=== PATIENT | female | born 1990 | race Caucasian/White ===

== ENCOUNTER → 2017-10-22 | Outpatient (CLI) | payer OTHER ==
[2017-10-22 17:32] LABS: BASO % 0.4 % (0.0-1.0); EOS # 0.1 10^3/uL (0.0-0.50); EOS % 0.7 % (0.0-3.0); HEMATOCRIT 35.8 % (36.0-47.0); HEMOGLOBIN 11.6 g/dl (12.0-16.0); IMMATURE GRANULOCYTE % 0.4 % (0-3.0); LYMPH # 1.6 10^3/uL (1.5-6.5); MEAN CORPUSCULAR HGB CONC 32.4 g/dl (32.0-36.5); MEAN CORPUSCULAR VOLUME 89.5 fl (80.0-96.0); MONO # 0.6 10^3/uL (0.0-0.8); MONO % 5.4 % (0.0-5.0); NEUTROPHILS # 8.4 10^3/uL (1.8-7.7); NEUTROPHILS % 78.1 % (36.0-66.0); PLATELET COUNT, AUTOMATED 356 10^3/uL (150-450); RED CELL DISTRIBUTION WIDTH 14.1 % (11.5-14.5); WHITE BLOOD COUNT 10.7 10^3/uL (4.0-10.0)
[2017-10-23 00:27] LABS: CHLAMYDIA DNA AMPLIFICATION NEGATIVE (NEGATIVE); GC DNA AMPLIFICATION NEGATIVE (NEGATIVE)
[2017-10-23 10:11] LABS: RUBELLA IgG QUALITATIVE IMMUNE (IMMUNE)
[2017-10-23 10:15] LABS: HBsAg Prenatal NEGATIVE (NEGATIVE)
[2017-10-23 10:41] LABS: HIV 1&2 SCREEN CENTAUR NEGATIVE (NEGATIVE)
== END ==
LOC: M SMT 13:04
DX: Z34.81 Encounter for supervision of other normal pregnancy, first trimester (principal); Z3A.08 8 weeks gestation of pregnancy
CPT/HCPCS: 86762

== ENCOUNTER → 2017-12-05 | Outpatient (CLI) | payer OTHER | LOC: M RAD 15:56 | DX: Z36.9 Encounter for antenatal screening, unspecified (principal); Z3A.17 17 weeks gestation of pregnancy | CPT/HCPCS: 76811 ==

== ENCOUNTER → 2018-01-28 | Outpatient (CLI) | payer OTHER | LOC: M RAD 17:11 | DX: O32.1XX0 Maternal care for breech presentation, not applicable or unspecified (principal); Z3A.25 25 weeks gestation of pregnancy | CPT/HCPCS: 76816 ==

== ENCOUNTER → 2018-01-29 | Outpatient (REF) | payer OTHER ==
[2018-01-30 11:18] LABS: CHLAMYDIA DNA AMPLIFICATION NEGATIVE (NEGATIVE); GC DNA AMPLIFICATION NEGATIVE (NEGATIVE)
[2018-01-31 12:19] LABS: HEPATITIS B SURFACE ANTIGEN NEGATIVE (NEGATIVE)
[2018-01-31 12:45] LABS: HIV 1&2 SCREEN CENTAUR NEGATIVE (NEGATIVE)
== END ==
LOC: M LAB REF 14:14
DX: Z00.00 Encounter for general adult medical examination without abnormal findings (principal)
CPT/HCPCS: 87340

== ENCOUNTER → 2018-03-27 | Outpatient (CLI) | payer OTHER ==
[2018-03-27 17:46] LABS: GLUCOSE CHALLENGE TEST 1 HOUR 111 MG/DL (LESS THAN 140)
[2018-03-27 18:01] LABS: HEMATOCRIT 29.2 % (36.0-47.0); HEMOGLOBIN 9.4 g/dl (12.0-15.5); MEAN CORPUSCULAR HEMOGLOBIN 27.5 pg (27.0-33.0); MEAN CORPUSCULAR HGB CONC 32.2 g/dl (32.0-36.5); MEAN CORPUSCULAR VOLUME 85.4 fl (80.0-96.0); PLATELET COUNT, AUTOMATED 398 10^3/uL (150-450); RED BLOOD COUNT 3.42 10^6/uL (4.00-5.40); RED CELL DISTRIBUTION WIDTH 14.5 % (11.5-14.5); WHITE BLOOD COUNT 18.1 10^3/uL (4.0-10.0)
== END ==
LOC: M SMT 13:03
DX: Z36.89 Encounter for other specified antenatal screening (principal); Z3A.00 Weeks of gestation of pregnancy not specified
CPT/HCPCS: 82950

== ENCOUNTER → 2018-04-14 | Outpatient (REF) | payer OTHER | LOC: M LAB REF 17:13 | DX: Z34.83 Encounter for supervision of other normal pregnancy, third trimester (principal); Z3A.00 Weeks of gestation of pregnancy not specified | CPT/HCPCS: 87081 ==

== ENCOUNTER 2018-05-09 01:39 | Inpatient (IN) | payer OTHER ==
[2018-05-09] MEDS: LACTATED RINGER'S 1000 ML IV (02:24)
[2018-05-09] MEDS: LR 1,000 ML IV (02:24)
[2018-05-09 02:48] LABS: HEMATOCRIT 33.5 % (36.0-47.0); HEMOGLOBIN 10.5 g/dl (12.0-15.5); MEAN CORPUSCULAR HEMOGLOBIN 25.5 pg (27.0-33.0); MEAN CORPUSCULAR HGB CONC 31.3 g/dl (32.0-36.5); MEAN CORPUSCULAR VOLUME 81.3 fl (80.0-96.0); PLATELET COUNT, AUTOMATED 435 10^3/uL (150-450); RED BLOOD COUNT 4.12 10^6/uL (4.00-5.40); RED CELL DISTRIBUTION WIDTH 15.3 % (11.5-14.5); WHITE BLOOD COUNT 16.9 10^3/uL (4.0-10.0)
[2018-05-09] MEDS: ONDANSETRON 4MG/2ML VIAL (J2405) IV (03:18)
[2018-05-09] MEDS ORDERED: FENTANYL 2MCG/ML ROPIVACAINE 0.2% IN 0.9% NACL 200ML IVBAG As Ordered (03:24)
[2018-05-09] MEDS ORDERED: REFRIGERATOR IV KEYS XX (03:30)
[2018-05-09] MEDS ORDERED: ONDANSETRON 4MG/2ML VIAL (J2405) IV (03:30)
[2018-05-09] MEDS: FENTANYL/ROPIVACAINE/NACL BAG 200 ML EPIDURAL (03:30)
[2018-05-09] MEDS ORDERED: ePHEDrine SULFATE 25 MG/5 ML(5MG/ML) SYRINGE IV (03:30)
[2018-05-09] MEDS ORDERED: NALOXONE INJ 0.4 MG/1 ML VIAL (J2310) IV (03:30)
[2018-05-09] MEDS ORDERED: EPIDURAL COMMENT XX (03:30)
[2018-05-09] MEDS ORDERED: diphenhydrAMINE INJ 50MG/ML VIAL (J1200) IV (03:30)
[2018-05-09] MEDS ORDERED: LACTATED RINGER'S 1000 ML IV (03:30)
[2018-05-09] MEDS ORDERED: EPIDURAL/PCA KEYS XX (03:30)
[2018-05-09] MEDS ORDERED: OXYTOCIN 30 UNITS IN 0.9% NaCl 500ML IV BAG (J2590) As Ordered (07:50)
[2018-05-09] MEDS ORDERED: METHYLERGONOVINE MALEATE 0.2 MG TAB PO (08:00)
[2018-05-09] MEDS ORDERED: RHOGAM 300 MCG (1500 IU) INJ (J2790) IM (08:00)
[2018-05-09] MEDS ORDERED: MEASLES,MUMPS,RUBELLA VACCINE INJ (MMR-II) (90707) SC (08:00)
[2018-05-09] MEDS ORDERED: DIBUCAINE 1% OINTMENT 30GM TOP (08:00)
[2018-05-09] MEDS: OXYTOCIN DRIP 30 UNITS in APPROPRIATE DILUENT 1 EA IV (08:00)
[2018-05-09] MEDS: IBUPROFEN 800 MG TAB PO (16:24)
[2018-05-09] MEDS: ACETAMINOPHEN 500 MG TAB PO ×2 (17:02→23:15)
[2018-05-09] MEDS: PRENATAL VITAMINS CHEWABLE TABLET PO (19:10)
[2018-05-09] MEDS: DOCUSATE SODIUM 100 MG CAP PO (23:15)
[2018-05-10] MEDS: PRENATAL VITAMINS CHEWABLE TABLET PO (08:46)
[2018-05-10] MEDS: IBUPROFEN 800 MG TAB PO (08:46)
[2018-05-10] MEDS: INFLUENZA QUADRIVALENT PF VACCINE 0.5ML SYRINGE (90686) IM (12:51)
== END 2018-05-10 15:20 | disposition home or self-care (01) | DRG 560 ==
LOC: M LDO 01:39 → M LDI 02:23 → M OBS 14:14
PROVIDERS: Specialist
PROC: 10E0XZZ Delivery of Products of Conception, External Approach (ICD-10-PCS; principal; 2018-05-09)
DX: O99.334 Smoking (tobacco) complicating childbirth (principal); F17.210 Nicotine dependence, cigarettes, uncomplicated; Z3A.39 39 weeks gestation of pregnancy; O32.6XX0 Maternal care for compound presentation, not applicable or unspecified; Z37.0 Single live birth

== ENCOUNTER → 2020-03-01 | Outpatient (REF) | payer OTHER ==
[~2020-03-01] MED LIST: FLINCHW9 PO; IBUP-1114 PO; IBUP600T26 PO; IBUP80TA PO; MAPA500T2 PO; PRENTAB9 PO; VITAPRTA PO
[2020-03-01 21:10] LABS: CHLAMYDIA DNA AMPLIFICATION NEGATIVE (NEGATIVE); GC DNA AMPLIFICATION NEGATIVE (NEGATIVE)
== END ==
LOC: M SFHCWAGY 16:34
PROVIDERS: ATTEND Specialist
DX: Z20.2 Contact with and (suspected) exposure to infections with a predominantly sexual mode of transmission (principal)

== ENCOUNTER 2020-05-04 05:48 | Emergency (ER) | payer OTHER ==
[~2020-05-04] VITALS: Ht 160 cm; Wt 81.8 kg
[2020-05-04] MEDS ORDERED: CYCL5TAB PO (06:02)
[2020-05-04 06:38] LABS: BASO # 0.1 10^3/uL (0.0-0.2); BASO % 0.5 % (0.0-1.0); EOS # 0.5 10^3/uL (0.0-0.5); EOS % 4.7 % (0.0-3.0); HEMATOCRIT 39.9 % (36.0-47.0); HEMOGLOBIN 12.5 g/dl (12.0-15.5); LYMPH # 1.6 10^3/uL (1.5-5.0); LYMPH % 15.6 % (24.0-44.0); MEAN CORPUSCULAR HEMOGLOBIN 28.3 pg (27.0-33.0); MEAN CORPUSCULAR HGB CONC 31.3 g/dl (32.0-36.5); MEAN CORPUSCULAR VOLUME 90.5 fl (80.0-96.0); MONO # 0.7 10^3/uL (0.0-0.8); MONO % 6.6 % (0.0-5.0); NEUTROPHILS # 7.5 10^3/uL (1.5-8.5); NEUTROPHILS % 72.3 % (36.0-66.0); PLATELET COUNT, AUTOMATED 502 10^3/uL (150-450); RED BLOOD COUNT 4.41 10^6/uL (4.00-5.40); WHITE BLOOD COUNT 10.4 10^3/uL (4.0-10.0)
[2020-05-04 07:00] LABS: ALBUMIN 3.5 GM/DL (3.2-5.2); ALT/SGPT 25 U/L (12-78); BILIRUBIN,DIRECT < 0.1 MG/DL (0.0-0.2); BILIRUBIN,TOTAL 0.2 MG/DL (0.2-1.0); BLOOD UREA NITROGEN 10 MG/DL (7-18); CALCIUM LEVEL 9.3 MG/DL (8.5-10.1); CARBON DIOXIDE LEVEL 25 MEQ/L (21-32); CHLORIDE LEVEL 109 MEQ/L (98-107); CREATININE FOR GFR 0.69 MG/DL (0.55-1.30); GLOMERULAR FILTRATION RATE > 60.0 (>60); GLUCOSE, FASTING 91 MG/DL (70-100); LIPASE 49 U/L (73-393); SODIUM LEVEL 140 MEQ/L (136-145); TOTAL PROTEIN 7.4 GM/DL (6.4-8.2)
[2020-05-04] MEDS ORDERED: NS 1,000 ML IV ONE (08:00)
[2020-05-04 08:06] LABS: HCG, SERUM QUALITATIVE NEGATIVE (NEGATIVE)
[2020-05-04 08:19] LABS: CK-MB VALUE MASS < 1.0 NG/ML (<3.6); CPK CREATINE PHOSPHOKINASE 100 U/L (26-192); TROPONIN I < 0.02 NG/ML (< 0.10)
--- NOTE | 2020-05-04 08:40 | REPVR ---
PROCEDURE INFORMATION: Exam: XR Chest, 2 Views Exam date and time: 05/04/2020 8:27 AM Age: 29 years old Clinical indication: Chest pain; Type not specified TECHNIQUE: Imaging protocol: XR of the chest Views: 2 views. COMPARISON: No relevant prior studies available. FINDINGS: Lungs: Unremarkable. No consolidation. Pleural space: Unremarkable. No pleural effusion. No pneumothorax. Heart/Mediastinum: Unremarkable. No cardiomegaly. Bones/joints: Unremarkable. IMPRESSION: No acute abnormalities are identified. Electronically signed by: Brant Rios On 05/04/2020 08:40:35 AM
[2020-05-04] MEDS ORDERED: KETOROLAC 30 MG/ML 1ML VIAL IV ONE (09:00)
--- NOTE | 2020-05-04 09:24 | REPVR ---
PROCEDURE INFORMATION: Exam: US Abdomen, Limited; Right Upper Quadrant Exam date and time: 05/04/2020 9:04 AM Age: 29 years old Clinical indication: Abdominal pain; Additional info: Ruq pain into back TECHNIQUE: Imaging protocol: US abdomen. Real time ultrasound with image documentation. Limited exam focused on the right upper quadrant. COMPARISON: No relevant prior studies available. FINDINGS: Liver: Unremarkable. No mass. Gallbladder: Distended gallbladder containing multiple gallstones and sludge. No significant gallbladder wall thickening or pericholecystic fluid. Negative sonographic Lew's sign. Common bile duct: Bile ducts are normal in caliber. CBD 4 mm. Pancreas: Visualized pancreas is unremarkable. Right kidney: Right kidney measures 11.6 cm in length. No evidence of hydronephrosis. Echogenic renal pyramids is nonspecific and can be seen in the setting of medullary nephrocalcinosis. No discrete calculi. Intraperitoneal space: No evidence of free fluid. IMPRESSION: 1. Distended gallbladder with cholelithiasis and gallbladder sludge. No sonographic evidence of cholecystitis. 2. No biliary duct dilatation. 3. Echogenic renal pyramids noted within the right kidney which is nonspecific and can be seen in the setting of medullary nephrocalcinosis. Electronically signed by: Brant Rios On 05/04/2020 09:24:23 AM
[2020-05-04 09:39] LABS: CK-MB VALUE MASS 1.3 NG/ML (<3.6); CPK CREATINE PHOSPHOKINASE 100 U/L (26-192); TROPONIN I < 0.02 NG/ML (< 0.10)
[2020-05-04 09:54] VITALS: BP 127/65
--- NOTE | 2020-05-11 09:43 | ECGEPIP ---
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
[2020-05-24] MEDS ORDERED: OMEP-221 (10:30)
== END 2020-05-04 10:15 | disposition home or self-care (01) ==
LOC: M ED 05:48
DX: K80.70 Calculus of gallbladder and bile duct without cholecystitis without obstruction (principal); F17.210 Nicotine dependence, cigarettes, uncomplicated; Z88.0 Allergy status to penicillin
CPT/HCPCS: 36415; 71046; 76705; 80048; 80076; 82550; 82553; 83690; 84703; 85025; 93005; 96374; 99284; J1885

== ENCOUNTER 2020-06-18 19:02 | Observation (INO) | payer OTHER ==
[~2020-06-18] VITALS: Ht 160 cm; Wt 87.3 kg
[~2020-06-18 19:02] MED LIST changes: +CYCL5TAB PO; +OMEP-221
[2020-06-18] MEDS ORDERED: KETOROLAC 30 MG/ML 1ML VIAL IV ONE (19:45)
[2020-06-18] MEDS ORDERED: NS 1,000 ML IV ONE (19:45)
[2020-06-18] MEDS ORDERED: ONDANSETRON 4MG/2ML VIAL IV ONE (19:45)
[2020-06-18 19:57] LABS: BASO # 0.1 10^3/uL (0.0-0.2); BASO % 0.3 % (0.0-1.0); EOS % 0.2 % (0.0-3.0); HEMOGLOBIN 12.8 g/dl (12.0-15.5); LYMPH # 1.2 10^3/uL (1.5-5.0); LYMPH % 6.3 % (24.0-44.0); MEAN CORPUSCULAR HEMOGLOBIN 28.5 pg (27.0-33.0); MEAN CORPUSCULAR VOLUME 89.1 fl (80.0-96.0); MONO # 1.9 10^3/uL (0.0-0.8); MONO % 10.4 % (0.0-5.0); NEUTROPHILS # 15.4 10^3/uL (1.5-8.5); NEUTROPHILS % 82.4 % (36.0-66.0); PLATELET COUNT, AUTOMATED 442 10^3/uL (150-450); RED BLOOD COUNT 4.49 10^6/uL (4.00-5.40); WHITE BLOOD COUNT 18.6 10^3/uL (4.0-10.0)
[2020-06-18] MEDS ORDERED: ISOVUE-370 76% 100ML VIAL As Ordered ONE (20:02)
[2020-06-18 20:20] LABS: ALBUMIN 3.7 GM/DL (3.2-5.2); BILIRUBIN,DIRECT 0.3 MG/DL (0.0-0.2); BILIRUBIN,TOTAL 0.6 MG/DL (0.2-1.0); TOTAL PROTEIN 7.8 GM/DL (6.4-8.2)
--- NOTE | 2020-06-18 20:23 | REPVR ---
PROCEDURE INFORMATION: Exam: CT Abdomen And Pelvis With Contrast Exam date and time: 06/18/2020 8:07 PM Age: 29 years old Clinical indication: Abdominal pain; Flank; Lower; Additional info: Lower abd/flank pain TECHNIQUE: Imaging protocol: Computed tomography of the abdomen and pelvis with intravenous contrast. Radiation optimization: All CT scans at this facility use at least one of these dose optimization techniques: automated exposure control; mA and/or kV adjustment per patient size (includes targeted exams where dose is matched to clinical indication); or iterative reconstruction. Contrast material: ISOVUE 370; Contrast volume: 100 ml; Contrast route: INTRAVENOUS (IV); COMPARISON: GALLBLADDER US 05/04/2020 8:49 AM FINDINGS: Liver: There is a diffuse decrease in hepatic parenchymal density, consistent with steatosis. Gallbladder and bile ducts: There are gallstones present. No evidence of cholecystitis demonstrated. Pancreas: Normal. No ductal dilation. Spleen: Normal. No splenomegaly. Adrenals: Normal. No mass. Kidneys and ureters: 7 mm nonobstructive calculus right kidney. Patchy enhancement in the mid and lower pole of the left kidney suggestive of pyelonephritis/lobar nephronia in the appropriate clinical setting. Stomach and bowel: Unremarkable. No obstruction. No mucosal thickening. Appendix: The appendix is within normal limits. There is no appendiceal enlargement, periappendiceal inflammatory changes or abscess. Intraperitoneal space: Unremarkable. No free air. No significant fluid collection. Vasculature: Unremarkable. No abdominal aortic aneurysm. Lymph nodes: Unremarkable. No enlarged lymph nodes. Urinary bladder: Unremarkable as visualized. Reproductive: Unremarkable as visualized. Bones/joints: Unremarkable. No acute fracture. Soft tissues: Unremarkable. IMPRESSION: 1. There is a diffuse decrease in hepatic parenchymal density, consistent with steatosis. 2. There are gallstones present. No evidence of cholecystitis demonstrated. 3. 7 mm nonobstructive calculus right kidney. Patchy enhancement in the mid and lower pole of the left kidney suggestive of pyelonephritis/lobar nephronia in the appropriate clinical setting. 4. The appendix is within normal limits. There is no appendiceal enlargement, periappendiceal inflammatory changes or abscess. Electronically signed by: Stef White On 06/18/2020 20:22:34 PM
[2020-06-18] MEDS ORDERED: CIPROFLOXACIN 400 MG in IV 1 EA IV ONE (22:00)
--- NOTE | 2020-06-18 22:36 | HPEPDOC ---
General Date of Admission Date of Service: Jun 18, 2020 Attending Physician: MAGGI LYNCH DO Chief Complaint The patient is a 29-year-old female admitted with a reason for visit of Flank Pain. History of Present Illness Pt is a 29 y/o female who presents to ER with cc of flank pain. Pt states that she's had a dull aching feeling in her flank region where her kidneys are for the past week and the pain is progressively getting worse and more frequent. Current pain is 6/10. She took some tylenol to suppress the pain but the pain comes right back after tylenol wear off. She's had some chilld, rigors, and states she feels "hot and cold" but denies any fever. She's also had some episodes of nausea today but denies vomiting. She also is starting to have whole body aches today. She states that she used to get frequent UTI but has not had one in a few years. Denies CP, sob, dysuria. PMHX: gallstones Past Family Hx: Noncontributory Past social hx: denies alcohol or illicit drugs ALL: Penicillin- hives MEDS: NONE IMAGING: CT abd and pelvis w/ ctx IMPRESSION: 1. There is a diffuse decrease in hepatic parenchymal density, consistent with steatosis. 2. There are gallstones present. No evidence of cholecystitis demonstrated. 3. 7 mm nonobstructive calculus right kidney. Patchy enhancement in the mid and lower pole of the left kidney suggestive of pyelonephritis/lobar nephronia in the appropriate clinical setting. 4. The appendix is within normal limits. There is no appendiceal enlargement, periappendiceal inflammatory changes or abscess Home Medications No Active Prescriptions or Reported Meds Allergies Coded Allergies: Penicillins (Verified Allergy, Unknown, 05/24/20) A-FIB/CHADSVASC A-FIB History Current/History of A-Fib/PAF?: No Current PO Anticoag Therapy: No Review of Systems Constitutional: Reports: Chills, Malaise, Night Sweats, Weakness, Fatigue; Denies: Fever, Weight Loss Eyes: Denies: Pain, Conjunctivae inflammation ENT: Reports: Head Aches; Denies: Ear Pain, Dysphagia, Sinus Congestion Skin: Denies: Rash, Jaundice Pulmonary: Denies: Dyspnea, Cough, Pleuritic Chest Pain Cardiovascular: Denies: Chest Pain, Palpitations, Orthopnea Gastrointestinal: Reports: Nausea; Denies: Vomiting, Abdominal Pain, Diarrhea, Constipation, Melena Genitourinary: Denies: Dysuria, Frequency, Incontinence Hematologic: Denies: Bruising, Bleeding Excessively Endocrine: Denies: Polydipsia, Polyphagia, Polyuria Musculoskeletal: Reports: Back Pain (bilateral flank region); Denies: Neck Pain Neurological: Denies: Weakness, Numbness, Incoordination, Change in speech Physical Examination General Exam: Positive: Alert, Cooperative, No Acute Distress Eye Exam: Positive: Sclera icteric ENT Exam: Positive: Atraumatic, Tongue Midline Neck Exam: Positive: Supple; Negative: JVD, thyromegaly, Lymphadenopathy Chest Exam: Positive: Clear to auscultation; Negative: Rales, Wheezing, Diminished Heart Exam: Positive: Rate Normal, Regular Rhythm, Normal S1, Normal S2; Negative: Gallops, Murmurs, Rubs Abdomen Exam: Positive: Normal bowel sounds, Soft, Other (+ CVA tenderness bilaterally); Negative: Tenderness, Hepatospenomegaly, Mass Extremity Exam: Negative: Clubbing, Cyanosis, Edema Skin Exam: Negative: Nl turgor and temperature Vital Signs Vital Signs Date Time Temp Pulse Resp B/P (MAP) Pulse Ox O2 Delivery O2 Flow Rate FiO2 06/18/20 21:23 98.2 91 18 97/51 (66) 98 Room Air Laboratory Data Labs 24H Laboratory Tests 2 06/18/20 19:43: POC Glucose (Misc Panel) 94, POC Sodium (Misc Panel) 136, POC Potassium (Misc Panel) 3.8, POC Chloride (Misc Panel) 103, POC Total CO2 (Misc Panel) 21.0L, POC Blood Urea Nitrogen (Misc Panel 8, POC Ionized Calcium (Misc Panel) 5.0, POC Creatinine (Misc Panel) 0.8, POC Hematocrit (Misc Panel) 43.0 06/18/20 19:44: Immature Granulocyte % (Auto) 0.4, Neutrophils (%) (Auto) 82.4H, Lymphocytes (%) (Auto) 6.3L, Monocytes (%) (Auto) 10.4H, Eosinophils (%) (Auto) 0.2, Basophils (%) (Auto) 0.3, Neutrophils # (Auto) 15.4H, Lymphocytes # (Auto) 1.2L, Monocytes # (Auto) 1.9H, Eosinophils # (Auto) 0.0, Basophils # (Auto) 0.1, Nucleated Red Blood Cells % (auto) 0.0, Urine Color MC, Urine Appearance CLOUDYH, Urine pH 6.0, Urine Specific [place] 1.020, Urine Protein 2+H, Urine Glucose (UA) NEGATIVE, Urine Ketones TRACEH, Urine Blood 1+H, Urine Nitrite POSITIVEH, Urine Bilirubin NEGATIVE, Urine Urobilinogen 4.0H, Urine Leukocyte Esterase 3+H, Urine WBC (Auto) TNTCH, Urine RBC (Auto) 16H, Urine Hyaline Casts (Auto) 0, Urine Bacteria (Auto) NEGATIVE, Urine Squamous Epithelial Cells 10, Urine Mucus (Auto) SMALL, Urine Sperm (Auto) , Total Bilirubin 0.6, Direct Bilirubin 0.3H, Aspartate Amino Transf (AST/SGOT) 39H, Alanine Aminotransferase (ALT/SGPT) 71, Alkaline Phosphatase 115, Total Protein 7.8, Albumin 3.7, Albumin/Globulin Ratio 0.9L, Lipase 38L 06/18/20 19:45: POC Beta HCG, Quantitative < 5.0 06/18/20 20:45: Lactic Acid Level 0.8 CBC/BMP Laboratory Tests 06/18/20 19:44 Microbiology Microbiology 06/18/20 Blood Culture, Received Pending 06/18/20 Urine Culture, Received Pending Assessment/Plan Pt is a 29 y/o female who presents to ER with cc of flank pain. Pt states that she's had a dull aching feeling in her flank region where her kidneys are for the past week and the pain is progressively getting worse and more frequent. CT abd/pelvis shows evidence of pyelonephritis and pt will be admitted for sepsis 2/2 to pyelo for further mgmt Plan / VTE VTE Prophylaxis Ordered?: Yes Plan Plan #Sepsis 2/2 to pyelonephritis - CT abd/pelvis show nonobstructive stones and evidence of pyelo in L kidney - IVF 125cc/h - strict IOs - Received 1 dose of Cipro in ER - afebrile+ CVA tenderness - blood and urine cultures pending - continue cipro IV - Tylenol for pain PRN - zofran for nausea #gallstones w/o complications - no biliary colic or pain on exam - no evidence of cholecystitis #nonobstructive calculus in R kidney - 7mm in size; non complicated - tylenol for pain control DVT ppx: teds/scds GI ppx: none fluids : ns 125cc/h Diet: regular Code: full GME ATTESTATION GME ATTESTATION My faculty preceptor for this patient encounter was physically present during the encounter and was fully available. All aspects of the patient interview, examination, medical decision making process, and medical care plan development were reviewed and approved by the faculty preceptor. The faculty preceptor is aware and concurs with the plan as stated in the body of this note and will attest to such by his/her cosignature. Jennifer Andres DO Jun 18, 2020 22:36
[2020-06-19 01:11] VITALS: BP 120/86
[2020-06-19] MEDS: NS 1,000 ML IV SCH ×3 (01:24→17:34)
[2020-06-19] MEDS: ACETAMINOPHEN TAB 650MG DOSE (2X325MG) PO PRN ×4 (01:25→19:49)
[2020-06-19] MEDS: ONDANSETRON 4MG/2ML VIAL IV PRN (01:33)
[2020-06-19] MEDS ORDERED: IBUPROFEN 400 MG TAB PO ONE (04:00)
[2020-06-19 06:00] VITALS: BP 106/65
[2020-06-19 06:44] LABS: BLOOD UREA NITROGEN 8 MG/DL (7-18); CALCIUM LEVEL 8.6 MG/DL (8.5-10.1); CARBON DIOXIDE LEVEL 23 MEQ/L (21-32); CHLORIDE LEVEL 108 MEQ/L (98-107); CREATININE FOR GFR 0.68 MG/DL (0.55-1.30); GLOMERULAR FILTRATION RATE > 60.0 (>60); GLUCOSE, FASTING 94 MG/DL (70-100); POTASSIUM SERUM 3.7 MEQ/L (3.5-5.1); SODIUM LEVEL 137 MEQ/L (136-145)
[2020-06-19 06:49] LABS: HEMATOCRIT 36.7 % (36.0-47.0); HEMOGLOBIN 11.3 g/dl (12.0-15.5); MEAN CORPUSCULAR HEMOGLOBIN 28.2 pg (27.0-33.0); MEAN CORPUSCULAR HGB CONC 30.8 g/dl (32.0-36.5); MEAN CORPUSCULAR VOLUME 91.5 fl (80.0-96.0); PLATELET COUNT, AUTOMATED 355 10^3/uL (150-450); RED BLOOD COUNT 4.01 10^6/uL (4.00-5.40); WHITE BLOOD COUNT 15.8 10^3/uL (4.0-10.0)
[2020-06-19] MEDS ORDERED: MEROPENEM INJ 1 GM in IV 1 EA IV SCH (07:15)
[2020-06-19] MEDS ORDERED: VANCOMYCIN HCL 1,310 MG in IV FLUID PLACE HOLDER 1 EA IV SCH (07:15)
--- NOTE | 2020-06-19 07:31 | IPNPDOC ---
Date Seen The patient was seen on 06/19/20. Progress Note SUBJECTIVE: patient was seen and examined at bedside. was admitted with sepsis 2/2 pyelonephritis. States R flank pain, fevers, chills. Improving mildly on abx. Denies chest pain, sob, palpitations, n/v/d. OBJECTIVE PHYSICAL EXAMINATION: VITAL SIGNS: please see below General: comfortable in bed HEENT: PERRLA, EOMI, sclerae clear Neck: supple, normal ROM, no JVD Respiratory: lungs CTAB, no wheeze, no rales, no crackles CVS: RRR, normal S1, S2, no murmurs Abdo: soft, no masses, no hepatosplenomegaly, BS+, no rebound tenderness Extremities: no edema, pulses 2+ Back: R CVA tenderness on percussion. MSK: no joint deformities, normal ROM Neuro: no focal neuro deficits, moving all 4 extremities, CN2-12 intact. Strength 5/5 in all 4 extremities. No nystagmus. Psych: calm, cooperative, AAO x 3 LABORATORY DATA, IMAGING STUDIES, MICROBIOLOGY: Please see below. DVT prophylaxis ordered?: Y, lovenox, TEDs, SCDs ASSESSMENT AND PLAN: 29 yo F admitted for sepsis secondary to pyelonephritis in the L kidney. Meets sepsis criteria. C/w IV abx. Awaiting final urine and blood cultures. PROBLEMS: #Sepsis: 2/2 pyelonephritis. S/p cipro in ED. Low suspicion for MDR infection. Improving on ciprofloxacin. C/w cipro 400 mg q12h IV. Blood culture positive for gram-negative rods. Urine cx. urine hCG negative. #hepatic steatososis: recommend outpatient f/u, dietary modification. #R non-obstructing renal calculus: 7 mm, see on CT. #BMI 34.1: complicating care. dietary counseling provided. DISPOSITION: DC home once medically stable. VS, I&O, 24H, [place] Vital Signs/I&O Vital Signs Date Time Temp Pulse Resp B/P (MAP) Pulse Ox O2 Delivery O2 Flow Rate FiO2 06/19/20 06:00 98.8 84 20 106/65 (79) 96 Room Air I&O- Last 24 Hours up to 6 AM 06/19/20 06:00 Intake Total 1793 ml Output Total 0 ml Balance 1793 ml Laboratory Data 24H LABS Laboratory Tests 2 10/17/20 19:43: POC Glucose (Misc Panel) 94, POC Sodium (Misc Panel) 136, POC Potassium (Misc Panel) 3.8, POC Chloride (Misc Panel) 103, POC Total CO2 (Misc Panel) 21.0L, POC Blood Urea Nitrogen (Misc Panel 8, POC Ionized Calcium (Misc Panel) 5.0, POC Creatinine (Misc Panel) 0.8, POC Hematocrit (Misc Panel) 43.0 06/18/20 19:44: Immature Granulocyte % (Auto) 0.4, Neutrophils (%) (Auto) 82.4H, Lymphocytes (%) (Auto) 6.3L, Monocytes (%) (Auto) 10.4H, Eosinophils (%) (Auto) 0.2, Basophils (%) (Auto) 0.3, Neutrophils # (Auto) 15.4H, Lymphocytes # (Auto) 1.2L, Monocytes # (Auto) 1.9H, Eosinophils # (Auto) 0.0, Basophils # (Auto) 0.1, Nucleated Red Blood Cells % (auto) 0.0, Urine Color MC, Urine Appearance CLOUDYH, Urine pH 6.0, Urine Specific [place] 1.020, Urine Protein 2+H, Urine Glucose (UA) NEGATIVE, Urine Ketones TRACEH, Urine Blood 1+H, Urine Nitrite POSITIVEH, Urine Bilirubin NEGATIVE, Urine Urobilinogen 4.0H, Urine Leukocyte Esterase 3+H, Urine WBC (Auto) TNTCH, Urine RBC (Auto) 16H, Urine Hyaline Casts (Auto) 0, Urine Bacteria (Auto) NEGATIVE, Urine Squamous Epithelial Cells 10, Urine Mucus (Auto) SMALL, Urine Sperm (Auto) , Total Bilirubin 0.6, Direct Bilirubin 0.3H, Aspartate Amino Transf (AST/SGOT) 39H, Alanine Aminotransferase (ALT/SGPT) 71, Alkaline Phosphatase 115, Total Protein 7.8, Albumin 3.7, Albumin/Globulin Ratio 0.9L, Lipase 38L 06/18/20 19:45: POC Beta HCG, Quantitative < 5.0 06/18/20 20:45: Lactic Acid Level 0.8 06/19/20 05:30: Nucleated Red Blood Cells % (auto) 0.0, Anion Gap 6L, Glomerular Filtration Rate > 60.0, Calcium Level 8.6 CBC/BMP Laboratory Tests 06/18/20 19:44 06/19/20 05:30 Microbiology Microbiology 06/19/20 Blood Culture, Received Pending 06/18/20 Blood Culture, Received Pending 06/18/20 Urine Culture, Received Pending DAVID ROD MD Jun 19, 2020 07:31
[2020-06-19] MEDS: CIPROFLOXACIN 400 MG in IV 1 EA IV SCH ×2 (08:53→21:13)
[2020-06-19] MEDS: ENOXAPARIN 40MG/0.4ML SYRINGE (J1650 PER 10MG) SC SCH (08:55)
[2020-06-19] MEDS ORDERED: CIPROFLOXACIN 200 MG in IV 1 EA IV SCH (10:00)
[2020-06-19 14:00] VITALS: BP 106/63
[2020-06-19 22:00] VITALS: BP 136/77
[2020-06-20] MEDS: ACETAMINOPHEN TAB 650MG DOSE (2X325MG) PO PRN ×4 (01:31→21:41)
[2020-06-20] MEDS: NS 1,000 ML IV SCH ×4 (01:31→21:39)
[2020-06-20] MEDS: ONDANSETRON 4MG/2ML VIAL IV PRN ×2 (01:37→18:28)
[2020-06-20 06:00] VITALS: BP 118/63
[2020-06-20] MEDS: ENOXAPARIN 40MG/0.4ML SYRINGE (J1650 PER 10MG) SC SCH (08:50)
[2020-06-20] MEDS ORDERED: CEFEPIME HCL 2 GM in D5W MINI-BAG PLUS 50 ML IV SCH (10:00)
--- NOTE | 2020-06-20 10:24 | IPNPDOC ---
Date Seen The patient was seen on 06/20/20. Progress Note SUBJECTIVE: Patient seen and examined at bedside this morning. Reports persistent mild chills. Ongoing CVA tenderness bilateral, worse on left. Reports mild lower abdominal pain and mild dysuria. Denies chest pressures breath, nausea, vomiting, diarrhea. Having normal bowel movements. Bradycardia by mouth. OBJECTIVE PHYSICAL EXAMINATION: VITAL SIGNS: please see below General: comfortable in bed HEENT: PERRLA, EOMI, sclerae clear Neck: supple, normal ROM, no JVD Respiratory: lungs CTAB, no wheeze, no rales, no crackles CVS: RRR, normal S1, S2, no murmurs Abdo: soft, no masses, no hepatosplenomegaly, BS+, no rebound tenderness Extremities: no edema, pulses 2+ Back: bilateral CVA tenderness on percussion, L > R. MSK: no joint deformities, normal ROM Neuro: no focal neuro deficits, moving all 4 extremities, CN2-12 intact. Strength 5/5 in all 4 extremities. No nystagmus. Psych: calm, cooperative, AAO x 3 LABORATORY DATA, IMAGING STUDIES, MICROBIOLOGY: Please see below. DVT prophylaxis ordered?: Y, SCD, MURIEL, Lovenox. ASSESSMENT AND PLAN: 29 yo F admitted for sepsis secondary to pyelonephritis in the L kidney. Meets sepsis criteria. C/w IV abx. Urine culture growing pansensitive Escherichia coli. Blood cultures preliminary positive for gram- negative rods. Currently on ciprofloxacin. Repeat cultures ordered on 06/20. PROBLEMS: #Sepsis: 2/2 pyelonephritis. Low suspicion for MDR infection. C/w cipro 400 mg q12h IV. Blood culture positive for gram-negative rods. Urine culture positive for Escherichia coli, pansensitive except for ampicillin. Repeat blood cultures 06/20. Urine hCG negative. #hepatic steatososis: recommend outpatient f/u, dietary modification. #R non-obstructing renal calculus: 7 mm, see on CT. #BMI 34.1: complicating care. dietary counseling provided. DISPOSITION: DC home once medically stable. VS, I&O, 24H, [place] Vital Signs/I&O Vital Signs Date Time Temp Pulse Resp B/P (MAP) Pulse Ox O2 Delivery O2 Flow Rate FiO2 06/20/20 06:00 99.3 83 12 118/63 (81) 97 Room Air I&O- Last 24 Hours up to 6 AM 06/20/20 06:00 Intake Total 5119 ml Output Total 1950 ml Balance 3169 ml Laboratory Data Microbiology Microbiology 06/19/20 Blood Culture - Preliminary, Resulted No growth after 24 hours . All specim... 06/18/20 Blood Culture - Preliminary, Resulted 06/18/20 Urine Culture - Final, Complete Escherichia Coli DAVID ROD MD Jun 20, 2020 10:24
[2020-06-20] MEDS: CIPROFLOXACIN 400 MG in IV 1 EA IV SCH ×2 (11:20→21:39)
[2020-06-20 12:08] LABS: BASO % 0.4 % (0.0-1.0); EOS # 0.1 10^3/uL (0.0-0.5); EOS % 1.1 % (0.0-3.0); HEMATOCRIT 32.7 % (36.0-47.0); HEMOGLOBIN 9.9 g/dl (12.0-15.5); LYMPH # 1.2 10^3/uL (1.5-5.0); LYMPH % 12.2 % (24.0-44.0); MEAN CORPUSCULAR HGB CONC 30.3 g/dl (32.0-36.5); MEAN CORPUSCULAR VOLUME 92.4 fl (80.0-96.0); MONO # 1.1 10^3/uL (0.0-0.8); MONO % 11.1 % (0.0-5.0); NEUTROPHILS # 7.4 10^3/uL (1.5-8.5); NEUTROPHILS % 74.8 % (36.0-66.0); PLATELET COUNT, AUTOMATED 301 10^3/uL (150-450); RED BLOOD COUNT 3.54 10^6/uL (4.00-5.40); WHITE BLOOD COUNT 9.9 10^3/uL (4.0-10.0)
[2020-06-20 12:43] LABS: ALBUMIN 2.8 GM/DL (3.2-5.2); ALT/SGPT 87 U/L (12-78); BILIRUBIN,TOTAL 0.3 MG/DL (0.2-1.0); BLOOD UREA NITROGEN 6 MG/DL (7-18); CALCIUM LEVEL 9.1 MG/DL (8.5-10.1); CARBON DIOXIDE LEVEL 26 MEQ/L (21-32); CHLORIDE LEVEL 108 MEQ/L (98-107); CREATININE FOR GFR 0.59 MG/DL (0.55-1.30); GLOMERULAR FILTRATION RATE > 60.0 (>60); GLUCOSE, FASTING 96 MG/DL (70-100); POTASSIUM SERUM 3.8 MEQ/L (3.5-5.1); SODIUM LEVEL 137 MEQ/L (136-145); TOTAL PROTEIN 6.3 GM/DL (6.4-8.2)
[2020-06-20 13:40] VITALS: BP 116/62
[2020-06-20 22:00] VITALS: BP 110/62
[2020-06-21 02:00] VITALS: BP 102/60
[2020-06-21] MEDS: ACETAMINOPHEN TAB 650MG DOSE (2X325MG) PO PRN (05:25)
[2020-06-21 06:00] VITALS: BP 107/65
[2020-06-21 06:39] LABS: BASO % 0.5 % (0.0-1.0); EOS # 0.2 10^3/uL (0.0-0.5); EOS % 2.6 % (0.0-3.0); HEMATOCRIT 33.1 % (36.0-47.0); HEMOGLOBIN 10.1 g/dl (12.0-15.5); LYMPH # 1.9 10^3/uL (1.5-5.0); LYMPH % 21.6 % (24.0-44.0); MEAN CORPUSCULAR HEMOGLOBIN 28.2 pg (27.0-33.0); MEAN CORPUSCULAR HGB CONC 30.5 g/dl (32.0-36.5); MEAN CORPUSCULAR VOLUME 92.5 fl (80.0-96.0); MONO # 0.8 10^3/uL (0.0-0.8); MONO % 9.3 % (0.0-5.0); NEUTROPHILS # 5.8 10^3/uL (1.5-8.5); NEUTROPHILS % 65.5 % (36.0-66.0); PLATELET COUNT, AUTOMATED 333 10^3/uL (150-450); RED BLOOD COUNT 3.58 10^6/uL (4.00-5.40); WHITE BLOOD COUNT 8.9 10^3/uL (4.0-10.0)
[2020-06-21 07:01] LABS: ALBUMIN 2.7 GM/DL (3.2-5.2); ALT/SGPT 182 U/L (12-78); BILIRUBIN,TOTAL 0.3 MG/DL (0.2-1.0); BLOOD UREA NITROGEN 5 MG/DL (7-18); CALCIUM LEVEL 8.8 MG/DL (8.5-10.1); CARBON DIOXIDE LEVEL 25 MEQ/L (21-32); CHLORIDE LEVEL 109 MEQ/L (98-107); CREATININE FOR GFR 0.56 MG/DL (0.55-1.30); GLOMERULAR FILTRATION RATE > 60.0 (>60); GLUCOSE, FASTING 76 MG/DL (70-100); SODIUM LEVEL 138 MEQ/L (136-145); TOTAL PROTEIN 6.2 GM/DL (6.4-8.2)
[2020-06-21] MEDS: CIPROFLOXACIN 400 MG in IV 1 EA IV SCH (08:25)
[2020-06-21] MEDS: NS 1,000 ML IV SCH ×2 (08:25→13:57)
[2020-06-21] MEDS: ENOXAPARIN 40MG/0.4ML SYRINGE (J1650 PER 10MG) SC SCH (08:25)
[2020-06-21 09:18] LABS: APPEARANCE, URINE HAZY (CLEAR); BACTERIA, URINE AUTO 1+ (NEGATIVE); BILIRUBIN, URINE AUTO NEGATIVE (NEGATIVE); BLOOD, URINE BLOOD NEGATIVE (NEGATIVE); COLOR, URINE YELLOW (YELLOW); GLUCOSE, URINE (UA) AUTO NEGATIVE (NEGATIVE); KETONE, URINE AUTO NEGATIVE (NEGATIVE); LEUKOCYTE ESTERASE, URINE AUTO TRACE (NEGATIVE); MUCUS, URINE SMALL (NEGATIVE); NITRITE, URINE AUTO NEGATIVE (NEGATIVE); PROTEIN, URINE AUTO NEGATIVE (NEGATIVE); RBC, URINE AUTO 2 /HPF (0-3); SQUAMOUS EPITHELIAL CELL UR AU 7 /HPF (0-6); UROBILINOGEN, URINE AUTO 0.2 mg/dL (0.0-2.0); WBC, URINE AUTO 9 /HPF (0-3)
[2020-06-21 14:00] VITALS: BP 108/66
--- NOTE | 2020-06-21 14:03 | DS.PDOC ---
Discharge Summary General Date of Admission Jun 18, 2020 at 19:03 Date of Discharge 06/21/2020 Discharge Summary PROCEDURES PERFORMED DURING STAY: [None]. ADMITTING DIAGNOSES: Flank pain DISCHARGE DIAGNOSES: Left pyelonephritis COMPLICATIONS/CHIEF COMPLAINT: Sepsis. HISTORY OF PRESENT ILLNESS: HPI from admitting H&P: HOSPITAL COURSE: 29 yo F admitted for sepsis secondary to pyelonephritis in the L kidney. Meets sepsis criteria. Treated with IV ciprofloxacin. Urine culture growing pansensitive Escherichia coli. Blood cultures preliminary positive for gram-negative rods 06/18/2020. Repeat blood cultures 06/19/2020 negative after 48 hours. Clinically doing much better and will be discharged home on by mouth ciprofloxacin and to follow-up with her primary care doctor within 2-5 days of discharge. # pyelonephritis. cipro 400 mg q12h IV transition to by mouth upon discharge. Urine culture positive for Escherichia coli, pansensitive except for ampicillin. Blood cultures preliminary positive for gram-negative rods 06/18/2020 repeat blood cultures 06/19 negative after 48 hours. Urine hCG negative. #hepatic steatososis: recommend outpatient f/u, dietary modification. # R non-obstructing renal calculus: 7 mm, see on CT. DISCHARGE MEDICATIONS: Please see below. ALLERGIES: Please see below. PHYSICAL EXAMINATION ON DISCHARGE: VITAL SIGNS: Please see below. Constitutional: Awake and alert, in no apparent distress ENT: Sclera are clear. Mucosa is moist. Respiratory: Lungs CTA bilaterally. No respiratory distress. No use of accessory muscles. Cardiovascular: RRR S1 and S2 are normal, no murmur Gastrointestinal: Abdomen is soft, non distended, non tender, BS present. Musculoskeletal: No edema. No joint deformities. RUE 5/5, LUE 5/5, BLE 5/5. No CVA tenderness bilaterally. Neurologic: No focal neurological deficit. Mental Status: A&O x3, normal affect Skin: Warm, dry LABORATORY DATA: Please see below. IMAGING: CT abdomen/pelvis: Impression 06/18/2020 1. There is a diffuse decrease in hepatic parenchymal density, consistent with steatosis. 2. There are gallstones present. No evidence of cholecystitis demonstrated. 3. 7 mm nonobstructive calculus right kidney. Patchy enhancement in the mid and lower pole of the left kidney suggestive of pyelonephritis/lobar nephronia in the appropriate clinical setting. 4. The appendix is within normal limits. There is no appendiceal enlargement, periappendiceal inflammatory changes or abscess. PROGNOSIS: Good ACTIVITY: [As tolerated]. DIET: Regular diet DISPOSITION: Home DISCHARGE INSTRUCTIONS: Please follow up with your primary care physician within 1 week from discharge. If you do not have one, please follow up with us to schedule an appointment. Please keep all of your follow up appointments. Please call central to book your appointments with hospital specialists. Please take all your medications as prescribed. Please call/come to Clinic or go to the Emergency Department if - Temp >101, intractable Nausea/Vomiting, Diarrhea, Mouth sores, Headaches, Altered mental status, Seizures, sudden onset of swelling, bleeding, shortness of breath or chest pain. ITEMS TO FOLLOWUP ON ON OUTPATIENT: Take antibiotics as prescribed Follow-up with PCP 2-5 days after discharge DISCHARGE CONDITION: [Stable]. TIME SPENT ON DISCHARGE: Greater than 40 minutes. Vital Signs/I&Os Vital Signs Date Time Temp Pulse Resp B/P (MAP) Pulse Ox O2 Delivery O2 Flow Rate FiO2 06/21/20 06:00 98.8 80 17 107/65 (79) 95 Room Air I&O- Last 24 Hours up to 6 AM 06/21/20 06:00 Intake Total 6115 ml Output Total 2925 ml Balance 3190 ml Laboratory Data Labs 24H Laboratory Tests 2 06/21/20 05:31: Immature Granulocyte % (Auto) 0.5, Neutrophils (%) (Auto) 65.5, Lymphocytes (%) (Auto) 21.6L, Monocytes (%) (Auto) 9.3H, Eosinophils (%) (Auto) 2.6, Basophils ( %) (Auto) 0.5, Neutrophils # (Auto) 5.8, Lymphocytes # (Auto) 1.9, Monocytes # (Auto) 0.8, Eosinophils # (Auto) 0.2, Basophils # (Auto) 0.0, Nucleated Red Blood Cells % (auto) 0.0, Anion Gap 4L, Glomerular Filtration Rate > 60.0, Calcium Level 8.8, Magnesium Level 2.0, Total Bilirubin 0.3, Aspartate Amino Transf (AST/SGOT) 105H, Alanine Aminotransferase (ALT/SGPT) 182H, Alkaline Phosphatase 140H, Total Protein 6.2L, Albumin 2.7L, Albumin/Globulin Ratio 0.8L 06/21/20 08:42: Urine Color YELLOW, Urine Appearance HAZY, Urine pH 6.0, Urine Specific [place] 1.010, Urine Protein NEGATIVE, Urine Glucose (Auto)(UA) NEGATIVE, Urine Ketones (Auto) NEGATIVE, Urine Blood NEGATIVE, Urine Nitrite NEGATIVE, Urine Bilirubin NEGATIVE, Urine Urobilinogen 0.2, Urine Leukocyte Esterase (Auto) TRACEH, Urine WBC (Auto) 9H, Urine RBC (Auto) 2, Urine Hyaline Casts (Auto) 0, Urine Bacteria (Auto) 1+H, Urine Squamous Epithelial Cells 7, Urine Mucus (Auto) SMALL, Urine Sperm (Auto) CBC/BMP Laboratory Tests 06/21/20 05:31 Microbiology Microbiology 06/19/20 Blood Culture - Preliminary, Resulted No Growth after 48 hours. All Specime... 06/18/20 Blood Culture - Final, Complete Escherichia Coli 06/18/20 Urine Culture - Final, Complete Escherichia Coli Discharge Medications No Active Prescriptions or Reported Meds Allergies Coded Allergies: Penicillins (Verified Allergy, Unknown, 05/24/20) GEREMIAS ARMIJO MD Jun 21, 2020 13:57
[2020-06-21] MEDS ORDERED: CIPR5SUS PO (14:05)
[2020-06-21] MEDS ORDERED: ACET1TAB55 PO (14:05)
== END 2020-06-21 15:35 | disposition home or self-care (01) ==
LOC: M ED 19:02 → M ED INP 19:03 → ENRESERV 06-19 00:20 → M MSPAV 06-19 01:11
PROVIDERS: ADMIT Internal Medicine; ATTEND Family Medicine
DX: N10 Acute pyelonephritis (principal); N39.0 Urinary tract infection, site not specified; B96.20 Unspecified Escherichia coli [E. coli] as the cause of diseases classified elsewhere; K80.20 Calculus of gallbladder without cholecystitis without obstruction; N20.0 Calculus of kidney; Z88.0 Allergy status to penicillin
CPT/HCPCS: 36415; 74177; 80047; 80048; 80053; 80076; 81001; 83605; 83690; 83735; 84702; 85025; 85027; 87040; 87077; 87088; 87186; 96361; 96365; 96366; 96375; 96376; 99284; J0744; J1885; J2405; Q9967

== ENCOUNTER → 2020-07-06 | Outpatient (CLI) | payer OTHER ==
[~2020-07-06] MED LIST changes: +ACET1TAB55 PO; +CIPR5SUS PO
== END ==
LOC: M LABSMTC 12:50
PROVIDERS: ATTEND Anesthesiology
DX: Z01.818 Encounter for other preprocedural examination (principal)
CPT/HCPCS: C9803; U0002

== ENCOUNTER → 2020-07-07 | Day surgery (SDC) | payer OTHER ==
[~2020-07-07] VITALS: Ht 160 cm; Wt 86.2 kg
[~2020-07-07] MED LIST changes: +LIDOCAINE 2% 100MG/5ML SDV (FOR ANES.) As Ordered ONE; +NS 1,000 ML IV ONE; +fentaNYL 100 MCG/2 ML INJECTION (J3010) As Ordered ONE; +propofoL 200 MG/20 ML VIAL As Ordered ONE
--- NOTE | 2020-07-07 11:22 | ROOR ---
Patient Name: Andria Dorsey Procedure Date: 07/07/2020 11:07 AM Date of : 1990 Age: 29 Room: [facility] Gender: Female Note Status: Finalized Procedure: Upper GI endoscopy Indications: Suspected esophageal reflux Providers: Bautista Drake Jr, MD Referring MD: Magnolia MEDELLIN DO Requesting Provider: Medicines: Propofol per Anesthesia Complications: No immediate complications. Procedure: Pre-Anesthesia Assessment: - Prior to the procedure, a History and Physical was performed, and patient medications and allergies were reviewed. The patient is competent. The risks and benefits of the procedure and the sedation options and risks were discussed with the patient. All questions were answered and informed consent was obtained. Patient identification and proposed procedure were verified by the physician and the nurse in the pre-procedure area and in the procedure room. Mental Status Examination: alert and oriented. Airway Examination: normal oropharyngeal airway and neck mobility. Respiratory Examination: clear to auscultation. CV Examination: normal. ASA Grade Assessment: II - A patient with mild systemic disease. After reviewing the risks and benefits, the patient was deemed in satisfactory condition to undergo the procedure. The anesthesia plan was to use moderate sedation / analgesia (conscious sedation). Immediately prior to administration of medications, the patient was re-assessed for adequacy to receive sedatives. The heart rate, respiratory rate, oxygen saturations, blood pressure, adequacy of pulmonary ventilation, and response to care were monitored throughout the procedure. The physical status of the patient was re-assessed after the procedure. The Endoscope was introduced through the mouth, and advanced to the second part of duodenum. The upper GI endoscopy was accomplished without difficulty. The patient tolerated the procedure well. Findings: The upper third of the esophagus, middle third of the esophagus and lower third of the esophagus were normal. LA Grade B (one or more mucosal breaks greater than 5 mm, not extending between the tops of two mucosal folds) esophagitis with no bleeding was found at the gastroesophageal junction. Biopsies were taken with a cold forceps for histology. The cardia, gastric fundus, gastric body, incisura, gastric antrum, prepyloric region of the stomach and pylorus were normal. Moderate inflammation characterized by congestion (edema), erythema and friability was found on the lesser curvature of the stomach. The duodenal bulb, first portion of the duodenum and second portion of the duodenum were normal. A small non-bleeding diverticulum was found in the gastric antrum. Impression: - Normal upper third of esophagus, middle third of esophagus and lower third of esophagus. - LA Grade B reflux esophagitis. Biopsied. - Normal cardia, gastric fundus, gastric body, incisura, antrum, prepyloric region of the stomach and pylorus. - Gastritis. - Normal duodenal bulb, first portion of the duodenum and second portion of the duodenum. - Gastric diverticulum. Recommendation: - Discharge patient to home (ambulatory). - Return to my office in 2 weeks. Bautista Drake MD Bautista Drake Jr, MD 07/07/2020 11:22:02 AM Electronically signed by Bautista Drake Jr, MD Number of Addenda: 0 Note Initiated On: 07/07/2020 11:07 AM Estimated Blood Loss: Estimated blood loss: none.
[2020-07-07 11:44] VITALS: BP 124/59
== END | disposition home or self-care (01) ==
LOC: M OPP 09:26
PROVIDERS: ATTEND Surgery
DX: K29.70 Gastritis, unspecified, without bleeding (principal); K21.00 Gastro-esophageal reflux disease with esophagitis, without bleeding; K31.4 Gastric diverticulum; F17.210 Nicotine dependence, cigarettes, uncomplicated; Z88.0 Allergy status to penicillin; Z87.448 Personal history of other diseases of urinary system
CPT/HCPCS: 43239; 88305; J3010

== ENCOUNTER → 2020-08-15 | Outpatient (REF) | payer OTHER ==
[~2020-08-15] MED LIST changes: -LIDOCAINE 2% 100MG/5ML SDV (FOR ANES.) As Ordered ONE; -NS 1,000 ML IV ONE; -fentaNYL 100 MCG/2 ML INJECTION (J3010) As Ordered ONE; -propofoL 200 MG/20 ML VIAL As Ordered ONE
== END ==
LOC: M LAB REF 18:24
PROVIDERS: ATTEND Physician Assistant
DX: Z32.00 Encounter for pregnancy test, result unknown (principal)

== ENCOUNTER 2020-08-20 18:31 | Emergency (ER) | payer OTHER ==
[~2020-08-20] VITALS: Ht 160 cm; Wt 87.4 kg
[2020-08-20] MEDS ORDERED: OMEP-221 (18:37)
[2020-08-20] MEDS ORDERED: SUCR1TAB56 (18:37)
[2020-08-20 21:14] LABS: CHLAMYDIA DNA AMPLIFICATION NEGATIVE (NEGATIVE); GC DNA AMPLIFICATION POSITIVE (NEGATIVE)
[2020-08-20] MEDS ORDERED: metroNIDAZOLE (FLAGYL) 500MG TABLET PO ONE (21:45)
[2020-08-20] MEDS ORDERED: cefTRIAXone SOD 250MG VIAL (J0696 PER 250MG) IM ONE (21:45)
[2020-08-20] MEDS ORDERED: LIDOCAINE 1% SDV 5ML VIAL DILUENT ONE (21:45)
[2020-08-20] MEDS ORDERED: AZITHROMYCIN 250MG TABLET PO ONE (21:45)
[2020-08-20] MEDS ORDERED: FLAG500T PO (21:58)
[2020-08-20] MEDS ORDERED: KEFL500C17 PO (21:58)
[2020-08-20 22:11] VITALS: BP 126/80
[2020-08-22 19:56] LABS: HEPATITIS B SURFACE ANTIBODY POSITIVE (POSITIVE); HEPATITIS B SURFACE ANTIGEN NEGATIVE (NEGATIVE); HEPATITIS C VIRUS ABY INDEX 0.1 INDEX (<0.8); HIV 1&2 SCREEN CENTAUR NEGATIVE (NEGATIVE)
== END 2020-08-20 22:15 | disposition home or self-care (01) ==
LOC: M ED 18:31
DX: O23.591 Infection of other part of genital tract in pregnancy, first trimester (principal); O98.211 Gonorrhea complicating pregnancy, first trimester; R82.71 Bacteriuria; Z79.899 Other long term (current) drug therapy; Z88.0 Allergy status to penicillin; O99.331 Smoking (tobacco) complicating pregnancy, first trimester; F17.210 Nicotine dependence, cigarettes, uncomplicated; Z3A.00 Weeks of gestation of pregnancy not specified
CPT/HCPCS: 81001; 84702; 86706; 86780; 86803; 87088; 87186; 87210; 87340; 87389; 87661; 96372; 99284; J0696

== ENCOUNTER → 2020-09-15 | Outpatient (CLI) | payer OTHER ==
[~2020-09-15] MED LIST changes: +FLAG500T PO; +KEFL500C17 PO; +SUCR1TAB56
--- NOTE | 2020-09-20 09:49 | REP ---
INDICATION: DATING AND VIABILITY COMPARISON: None. TECHNIQUE: Transabdominal 1st trimester obstetrical ultrasound with color Doppler evaluation. FINDINGS: Single live early intrauterine is appreciated. Gestational sac with yolk sac and pole identified. [place]-rump length of 2.4 cm corresponds to 9 weeks 0 days gestational age with estimated date of delivery 04/20/2021. heart rate equals 171 beats per minute. Right corpus luteal cyst noted. IMPRESSION: Single live early intrauterine at 9 weeks 0 days gestational age. Complete anatomical assessment should be performed and 19-20 weeks. <Electronically signed by Brant Shipman > 09/20/20 0920
== END ==
LOC: M RAD 13:33
PROVIDERS: ATTEND Physician Assistant
DX: Z36.9 Encounter for antenatal screening, unspecified (principal); Z3A.09 9 weeks gestation of pregnancy

== ENCOUNTER 2020-10-20 16:36 | Emergency (ER) | payer OTHER ==
[~2020-10-20] VITALS: Ht 160 cm; Wt 84.5 kg
--- OUTSIDE RECORDS SUMMARY | 2020-10-20 16:44 | CCD | Continuity of Care Document ---
Author Author Andria MEEKS D.O. Organization Unknown Address [address] [place] [address] Phone [phone] Care Team Providers Care Chest Pain Coordinator Name Role Phone Magnolia Meeks D.O. AUTM [phone] Problems Description No Information Available Social History Type Date Description Comments Sex Unknown Tobacco Use Start: Unknown Heavy tobacco smoker (more than 10 cigarettes/day) Smoking Status Reviewed: 03/18/19 Heavy tobacco smoker (more than 10 cigarettes/day) ETOH Use Denies alcohol use Tobacco Use Start: Unknown Heavy tobacco smoker (more than 10 cigarettes/day) Recreational Drug Use Denies Drug Use Exercise Type/Frequency Does not exercise Sun Exposure Does not use sunscreen Seat Belt/Car Seat Always uses seat belt Allergies, Adverse Reactions, Alerts Active Allergies Reaction Severity Comments Date Penicillin 02/09/2019 Medications Active Medications SIG Qnty Indications Ordering Provide r Date Tizanidine HCL 2mg Tablets one tablet by mouth every 8 hours as needed for pain 90tabs M54.5 Magnolia Carroll, DNicolle 09/08/2019 Paragard Intrauterine Copper Contracepti ve T380a T380a IUD Unknown Acetaminophen 325mg Tablets Unknown Acetaminophen 325mg Tablets Take Two Tablets By Mouth Every 4 Hours as Needed For Pain Or Fever Unknown Immunizations Description No Information Available Vital Signs Date Vital Result Comment 09/08/2019 10:16am BP Systolic 120 mmHg BP Diastolic 88 mmHg Height 62.7 inches 5'2.70" Weight 179.38 lb BMI (Body Mass Index) 32.1 kg/m2 Heart Rate 73 /min Respiratory Rate 16 /min Body Temperature 98.6 F O2 % BldC Oximetry 98 % [place] Body Weight 110 lb 03/18/2019 3:05pm BP Systolic 112 mmHg BP Diastolic 66 mmHg Height 62.7 inches 5'2.70" Weight 170.00 lb BMI (Body Mass Index) 30.4 kg/m2 Heart Rate 87 /min Respiratory Rate 18 /min Body Temperature 99.4 F O2 % BldC Oximetry 99 % [place] Body Weight 110 lb Results Test Acquired Date Facility Test Result H/L Range Note Wet [place] Trichomonas 08/20/2020 [facility] (Registration) [address] [place] [address] [phone] Wet Prep WET PREP RESULT Normal 1 Chlamydia, GC & Trich Amp 08/20/2020 [facility] Outpatient Testing (Registration) [address] [place], [place] [address] [phone] Chlamydia Dna Amplification NEGATIVE Normal Nega tive 2 GC Dna Amplification POSITIVE High Negative Trichomonas vaginalis (Amp) NOT DETECTED Normal Negative 3 Laboratory test finding 08/20/2020 [facility] Outpatient T esting (Registration) [address] [place] [address] [phone] HCG, Serum Quantitative 2995 MIU/ML Normal 4 Ua W/ Reflex To Culture 08/20/2020 [facility] Outpatient T esting (Registration) [address] [place] [address] [phone] Appearance, Urine RFX CLOUDY High Clear Color, Urine RFX YELLOW Normal Yellow PH,Urine RFX 5.0 units Normal 5.0-9.0 Specific [place] Ur Auto RFX 1.025 Normal 1.002-1.035 Protein, Urine Auto RFX NEGATIVE mg/dL Normal Negative Glucose, Urine (Ua) Auto RFX NEGATIVE mg/dL Normal Negative Ketone, Urine Auto RFX NEGATIVE mg/dL Normal Negative Urobilinogen, Urine Auto RFX 2.0 mg/dL High 0.0-2.0 Bilirubin, Urine Auto RFX NEGATIVE Normal Negative Nitrite, Urine Auto RFX NEGATIVE Normal Negative Leukocyte Esterase Ur Auto RFX 1+ High Negative Blood, Urine Blood RFX NEGATIVE Normal Negative WBC, Urine Auto RFX 16 /HPF High 0-3 RBC, Urine Auto RFX 2 /HPF Normal 0-3 Bacteria, Urine Auto RFX 1+ High Negative Squam Epithelial Cell Ur Aurfx 13 /HPF Normal 0-6 Mucus, Urine RFX SMALL Normal Negative Hyaline Cast, Urine Auto RFX 0 /LPF Normal 0-1 Reflex Urine Culture 08/20/2020 [facility] Outpatient Test ing (Registration) [address] [place] [address] [phone] Reflex Urine Culture FULL REPORT IN L <SEE NOTE> Norm al 5 CBC With Differential 05/04/2020 [facility] Out[facility] (Registration) [address] [place] [address] [phone] White Blood Count 10.4 10 High 4.0-10.0 Red Blood Count 4.41 10 Normal 4.00-5.40 Hemoglobin 12.5 g/dL Normal 12.0-15.5 Hematocrit 39.9 % Normal 36.0-47.0 Mean Corpuscular Volume 90.5 fl Normal 80.0-96.0 Mean Corpuscular Hemoglobin 28.3 pg Normal 27.0-33.0 Mean Corpuscular HGB Conc 31.3 g/dL Low 32.0-36.5 Red Cell Distribution Width 14.6 % High 11.5-14.5 Platelet Count, Automated 502 10 High 150-450 Neutrophils % 72.3 % High 36.0-66.0 Lymph % 15.6 % Low 24.0-44.0 [place] % 6.6 % High 0.0-5.0 Eos % 4.7 % High 0.0-3.0 Baso % 0.5 % Normal 0.0-1.0 Immature Granulocyte % 0.3 % Normal 0-3.0 Nucleated Red Blood Cell % 0.0 % Normal 0-0 Neutrophils # 7.5 10 Normal 1.5-8.5 Lymph # 1.6 10 Normal 1.5-5.0 [place] # 0.7 10 Normal 0.0-0.8 Eos # 0.5 10 Normal 0.0-0.5 Baso # 0.1 10 Normal 0.0-0.2 Liver Profile 05/04/2020 [facility] Outpatient Testi ng (Registration) [address] [place] [address] [phone] Ast/Sgot 9 U/L Normal 7-37 Alt/SGPT 25 U/L Normal 12-78 Alkaline Phosphatase 82 U/L Normal 45-117 Bilirubin,Total 0.2 mg/dL Normal 0.2-1.0 Bilirubin,Direct < 0.1 mg/dL Normal 0.0-0.2 Total Protein 7.4 GM/DL Normal 6.4-8.2 Albumin 3.5 GM/DL Normal 3.2-5.2 Albumin/Globulin Ratio 0.9 Low 1.2-2.2 Basic Metabolic Profile 05/04/2020 [facility] Outpatient T esting (Registration) [address] [place] [address] [phone] Glucose, Fasting 91 mg/dL Normal 70-100 Blood Urea Nitrogen 10 mg/dL Normal 7-18 Creatinine For GFR 0.69 mg/dL Normal 0.55-1.30 Glomerular Filtration Rate > 60.0 Normal >60 6 Sodium Level 140 mEq/L Normal 136-145 Potassium Serum 4.0 mEq/L Normal 3.5-5.1 Chloride Level 109 mEq/L High 98-107 Carbon Dioxide Level 25 mEq/L Normal 21-32 Anion Gap 6 mEq/L Low 8-16 Calcium Level 9.3 mg/dL Normal 8.5-10.1 Laboratory test finding 05/04/2020 [facility] Outpatient T esting (Registration) [address] [place] [address] [phone] Lipase 49 U/L Low 73-393 Cardiac Marker Panel 05/04/2020 [facility] Outpatient Test ing (Registration) [address] [place] [address] [phone] CPK Creatine Phosphokinase 100 U/L Normal 26-19 2 CK-MB Value Mass < 1.0 NG/ML Normal <3.6 MB/CK Relative Index 1.00 Normal < Or =4 7 Troponin I < 0.02 NG/ML Normal < 0.10 8 Laboratory test finding 05/04/2020 [facility] Outpatient T esting (Registration) [address] [place] [address] [phone] HCG Serum Qualitative NEGATIVE Normal Negative 1 MANY SHORT RODS PRESENT MODERATE CLUE CELLS PRESENT FEW WBC 2 A negative test result does not exclude the possibility of infection because test results may be affected by improper specimen collection, technical error, specimen mix-up, concurrent antibiotic therapy, or the number of organisms in the specimen which may be below the sensitivity of the test. 3 A negative test result does not exclude the possibility of infection because test results may be affected by improper specimen collection, technical error, sample mix-up, or because the number of organisms in the sample is below the limit of detection of the test. 4 GESTATIONAL AGE APPROXIMATE HCG RANGE (MIU/ML) - 0.2-1 WEEK 5-50 1-2 WEEKS 50-500 2-3 WEEKS 100-5,000 3-4 WEEKS 500-10,000 4-5 WEEKS 1,000-50,000 5-6 WEEKS 10,000-100,000 6-8 WEEKS 15,000-200,000 2-3 MONTHS 10,000-100,00 0 NON FEMALES LESS THAN 3.0 Patient samples may contain human heterophilic antibodies that could react with immunoassays to give falsely elevated or depressed results. This assay has been designed to minimize interference from heterophilic antibodies. Elevated hCG levels have also been associated with trophoblastic disease and nontrophoblastic neoplasms. The possibility of having these diseases should be considered before a diagnosis of is made. This test is not intended for use as a surrogate marker for aiding in the diagnosis or monitoring the treatment of cancer patients. [employer] methodology. 5 FULL REPORT IN LAB NOTES (eC W and [employer]). ORGANISM 1: ESCHERICHIA COLI COLONY COUNT >100,000 ORGANISM 1: ESCHERICHIA COLI ESCHERICHIA COLI: REACTION TRIMETHOPRIM/SULFAMETHOXAZOLE IV 160mg TMP & 800mg SMXq6h <=20 S TRIMETHOPRIM/SULFAMETHOXAZOLE PO Bactrim DS Bid <=20 S AMPICILLIN IV 500mg q6h <=2 S AMPICILLIN PO 500mg q6h fasting <=2 S GENTAMICIN IV 80mg q8h <=1 S NITROFURANTOIN PO 100mg BID <=16 S CEFAZOLIN IV 1gm q8h <=4 S LEVOFLOXACIN IV 500mg qd <=0.12 S LEVOFLOXACIN PO 250mg qd <=0.12 S LEVOFLOXACIN PO 500mg qd <=0.12 S TOBRAMYCIN IV 80mg q8h <=1 S CEFTRIAXONE IV 1gm q24h <=1 S CEFTAZIDIME IV 1gm q8h <=1 S AMPICILLIN/SULBACTAM IV 1.5g q6h <=2 S PIPERACILLIN/TAZOBACTAM IV 2.25 gm q6h <=4 S AZTREONAM IV 1gm q8h <=1 S ERTAPENEM IV 1gm qd <=0.5 S MEROPENEM IV 1 gm q8h <=0.25 S MEROPENEM IV 500 mg q8h <=0.25 S TIGECYCLINE IV 50mg q12h <=0.5 S CEFEPIME IV 1 gm q12h <=1 S CEFEPIME IV 2 gm q12h <=1 S EXTD BRD SPCTRM BETA LACTAMASE IV NEGATIVE FOR ESBL 6 Units are mL/min/1.73 m2 Chronic Kidney Disease Staging per NKF: Stage I & II GFR >=60 Normal to Mildly Decreased Stage III GFR 30-59 Moderately Decreased Stage IV GFR 15-29 Severely Decreased Stage V GFR <15 Very Little GFR Left ESRD GFR <15 on STITCHDOWNS TOE FORMER 7 DIAGNOSIS CRITERIA MMB ng/ml Relative Index (RI) NON-AMI < or = 5 N/A REEDER ZONE > 5 < or = 4 AMI > 5 > 4 8 Troponin I Reference Interva l for [place] LOCI: 99th Percentile= 0.00-0.045 ng/ml Risk Stratification: <= 0.10 ng/ml Decreased Risk for Adverse Clinical Events. 0.10-1.50 ng/ml Increased Risk for Adv erse Clinical Events. Evaluation of additional criterion and/or repeat testing in 2-6 hours is suggested to rule out myocardial damage. >= 1.50 ng/ml Indicative of Myocardial Injury. Procedures Description No Information Available Medical Devices Description No Information Available Encounters Description No Information Available Assessments Description No Information Available Plan of Treatment No Information Available Functional Status Description No Information Available Mental Status Description No Information Available Referrals Description No Information Available
--- OUTSIDE RECORDS SUMMARY | 2020-10-20 16:44 | CCD | Continuity of Care Document ---
Author Author Andria MEEKS D.O. Organization Unknown Address [email or web address] [place] [address] Phone [phone] Care Team Providers Care Business Control Specialist Name Role Phone Magnolia Meeks D.O. AUTM [phone] Problems Description No Information Available Social History [...] F O2 % BldC Oximetry 98 % [place] Body Weight 110 lb 03/18/2019 3:05pm BP Systolic 112 mmHg BP Diastolic 66 mmHg Height 62.7 inches 5'2.70" Weight 170.00 lb BMI (Body Mass Index) 30.4 kg/m2 Heart Rate 87 /min Respiratory Rate 18 /min Body Temperature 99.4 F O2 % BldC Oximetry 99 % [place] Body Weight 110 lb Results Test Acquired Date Facility Test Result H/L Range Note Wet [place] Trichomonas 08/20/2020 [facility] Outpatient Hortensia ting (Registration) [address] [place] [address] [phone] Wet Prep WET PREP RESULT Normal 1 Chlamydia, GC & Trich Amp 08/20/2020 [facility] Outpatient Testing (Registration) [address] [place], [place] [address] [phone] Chlamydia Dna Amplification NEGATIVE Normal Nega tive 2 GC Dna Amplification POSITIVE High Negative Trichomonas vaginalis (Amp) NOT DETECTED Normal Negative 3 Laboratory test finding 08/20/2020 [facility] Outpatient T esting (Registration) [address] [place] [address] [phone] HCG, Serum Quantitative 2995 MIU/ML Normal 4 Ua W/ Reflex To Culture 08/20/2020 [facility] Outpatient T esting (Registration) [address] [place] [address] [phone] Appearance, Urine RFX CLOUDY High Clear Color, Urine RFX YELLOW Normal Yellow PH,Urine RFX 5.0 units Normal 5.0-9.0 Specific [place] Ur Auto RFX 1.025 Normal 1.002-1.035 Protein, [...] /LPF Normal 0-1 Reflex Urine Culture 08/20/2020 [facility] Outpatient Test ing (Registration) [address] [place] [address] [phone] Reflex Urine Culture FULL REPORT IN L <SEE NOTE> Norm al 5 CBC With Differential 05/04/2020 [facility] Outpatient Hortensia ting (Registration) [address] [place] [address] [phone] White Blood Count 10.4 10 High 4.0-10.0 [...] 36.0-66.0 Lymph % 15.6 % Low 24.0-44.0 [place] % 6.6 % High 0.0-5.0 Eos % 4.7 % High 0.0-3.0 Baso % 0.5 % Normal 0.0-1.0 Immature Granulocyte % 0.3 % Normal 0-3.0 Nucleated Red Blood Cell % 0.0 % Normal 0-0 Neutrophils # 7.5 10 Normal 1.5-8.5 Lymph # 1.6 10 Normal 1.5-5.0 [place] # 0.7 10 Normal 0.0-0.8 Eos # 0.5 10 Normal 0.0-0.5 Baso # 0.1 10 Normal 0.0-0.2 Liver Profile 05/04/2020 [facility] Outpatient Testi ng (Registration) [address] [place] [address] [phone] Ast/Sgot 9 U/L Normal 7-37 Alt/SGPT 25 U/L Normal 12-78 Alkaline Phosphatase 82 U/L Normal 45-117 Bilirubin,Total 0.2 mg/dL Normal 0.2-1.0 Bilirubin,Direct < 0.1 mg/dL Normal 0.0-0.2 Total Protein 7.4 GM/DL Normal 6.4-8.2 Albumin 3.5 GM/DL Normal 3.2-5.2 Albumin/Globulin Ratio 0.9 Low 1.2-2.2 Basic Metabolic Profile 05/04/2020 [facility] Outpatient T esting (Registration) [address] [place] [address] [phone] Glucose, Fasting 91 mg/dL Normal 70-100 Blood [...] mg/dL Normal 8.5-10.1 Laboratory test finding 05/04/2020 [facility] Outpatient T esting (Registration) [address] [place] [address] [phone] Lipase 49 U/L Low 73-393 Cardiac Marker Panel 05/04/2020 [facility] Outpatient Test ing (Registration) [address] [place] [address] [phone] CPK Creatine Phosphokinase 100 U/L Normal 26-19 2 CK-MB Value Mass < 1.0 NG/ML Normal <3.6 MB/CK Relative Index 1.00 Normal < Or =4 7 Troponin I < 0.02 NG/ML Normal < 0.10 8 Laboratory test finding 05/04/2020 [facility] Outpatient T esting (Registration) [address] [place] [address] [phone] HCG Serum Qualitative NEGATIVE Normal Negative 1 [...] monitoring the treatment of cancer patients. [employer] methodology. 5 FULL REPORT IN LAB NOTES [...] Little GFR Left ESRD GFR <15 on [employer]ENT[employer]ENT 7 DIAGNOSIS CRITERIA MMB ng/ml Relative Index (RI) NON-AMI < or = 5 N/A REEDER ZONE > 5 < or = 4 AMI > 5 > 4 8 Troponin I Reference Interva l for dreamsha.re LOCI: 99th Percentile= 0.00-0.045 ng/ml Risk Stratification: [...]
--- OUTSIDE RECORDS SUMMARY | 2020-10-20 16:44 | CCD | Continuity of Care Document ---
Author Author Adnria MEEKS D.O. Organization Unknown Address [address] [place] [address] Phone [phone] Care Team Providers Care Color Print Inspector Name Role Phone Magnolia Meeks D.O. AUTM [phone] Problems Description No Information Available Social History [...] F O2 % BldC Oximetry 98 % [place] Body Weight 110 lb 03/18/2019 3:05pm BP Systolic 112 mmHg BP Diastolic 66 mmHg Height 62.7 inches 5'2.70" Weight 170.00 lb BMI (Body Mass Index) 30.4 kg/m2 Heart Rate 87 /min Respiratory Rate 18 /min Body Temperature 99.4 F O2 % BldC Oximetry 99 % [place] Body Weight 110 lb Results Test Acquired Date Facility Test Result H/L Range Note Wet [place] Trichomonas 08/20/2020 [facility] Outpatient Hortensia ting (Registration) [address] [place] [address] [phone] Wet Prep WET PREP RESULT Normal 1 Chlamydia, GC & Trich Amp 08/20/2020 [facility] Outpatient Testing (Registration) [address] [place], [place] [address] [phone] Chlamydia Dna Amplification NEGATIVE Normal Nega tive 2 GC Dna Amplification POSITIVE High Negative Trichomonas vaginalis (Amp) NOT DETECTED Normal Negative 3 Laboratory test finding 08/20/2020 [facility] Outpatient T esting (Registration) [address] [place] [address] [phone] HCG, Serum Quantitative 2995 MIU/ML Normal 4 Ua W/ Reflex To Culture 08/20/2020 [facility] Outpatient T esting (Registration) [address] [place] [address] [phone] Appearance, Urine RFX CLOUDY High Clear Color, Urine RFX YELLOW Normal Yellow PH,Urine RFX 5.0 units Normal 5.0-9.0 Specific [place] Ur Auto RFX 1.025 Normal 1.002-1.035 Protein, [...] /LPF Normal 0-1 Reflex Urine Culture 08/20/2020 [facility] Outpatient Test ing (Registration) [address] [place] [address] [phone] Reflex Urine Culture FULL REPORT IN L <SEE NOTE> Norm al 5 CBC With Differential 05/04/2020 [facility] Outpatient Hortensia ting (Registration) [address] [place] [address] [phone] White Blood Count 10.4 10 High 4.0-10.0 [...] 36.0-66.0 Lymph % 15.6 % Low 24.0-44.0 [place] % 6.6 % High 0.0-5.0 Eos % 4.7 % High 0.0-3.0 Baso % 0.5 % Normal 0.0-1.0 Immature Granulocyte % 0.3 % Normal 0-3.0 Nucleated Red Blood Cell % 0.0 % Normal 0-0 Neutrophils # 7.5 10 Normal 1.5-8.5 Lymph # 1.6 10 Normal 1.5-5.0 [place] # 0.7 10 Normal 0.0-0.8 Eos # 0.5 10 Normal 0.0-0.5 Baso # 0.1 10 Normal 0.0-0.2 Liver Profile 05/04/2020 [facility] Outpatient Testi ng (Registration) [address] [place] [address] [phone] Ast/Sgot 9 U/L Normal 7-37 Alt/SGPT 25 U/L Normal 12-78 Alkaline Phosphatase 82 U/L Normal 45-117 Bilirubin,Total 0.2 mg/dL Normal 0.2-1.0 Bilirubin,Direct < 0.1 mg/dL Normal 0.0-0.2 Total Protein 7.4 GM/DL Normal 6.4-8.2 Albumin 3.5 GM/DL Normal 3.2-5.2 Albumin/Globulin Ratio 0.9 Low 1.2-2.2 Basic Metabolic Profile 05/04/2020 [facility] Outpatient T esting (Registration) [address] [place] [address] [phone] Glucose, Fasting 91 mg/dL Normal 70-100 Blood [...] mg/dL Normal 8.5-10.1 Laboratory test finding 05/04/2020 [facility] Outpatient T esting (Registration) [address] [place] [address] [phone] Lipase 49 U/L Low 73-393 Cardiac Marker Panel 05/04/2020 [facility] Outpatient Test ing (Registration) [address] [place] [address] [phone] CPK Creatine Phosphokinase 100 U/L Normal 26-19 2 CK-MB Value Mass < 1.0 NG/ML Normal <3.6 MB/CK Relative Index 1.00 Normal < Or =4 7 Troponin I < 0.02 NG/ML Normal < 0.10 8 Laboratory test finding 05/04/2020 [facility] Outpatient T esting (Registration) [address] [place] [address] [phone] HCG Serum Qualitative NEGATIVE Normal Negative 1 [...] monitoring the treatment of cancer patients. [employer] methodology. 5 FULL REPORT IN LAB NOTES [...] Little GFR Left ESRD GFR <15 on ENTERTAINMENT DANCER 7 DIAGNOSIS CRITERIA MMB ng/ml Relative Index (RI) NON-AMI < or = 5 N/A REEDER ZONE > 5 < or = 4 AMI > 5 > 4 8 Troponin I Reference Interva l for [place] LOCI: 99th Percentile= 0.00-0.045 ng/ml Risk Stratification: [...]
--- OUTSIDE RECORDS SUMMARY | 2020-10-20 16:44 | CCD | Continuity of Care Document ---
Author Author Andria MEEKS D.O. Organization Unknown Address [address] [place] [address] Phone [phone] Care Team Providers Care Rail Track Layer Name Role Phone Magnolia Meeks D.O. AUTM [phone] Problems Description No Information Available Social History [...] F O2 % BldC Oximetry 98 % [place] Body Weight 110 lb 03/18/2019 3:05pm BP Systolic 112 mmHg BP Diastolic 66 mmHg Height 62.7 inches 5'2.70" Weight 170.00 lb BMI (Body Mass Index) 30.4 kg/m2 Heart Rate 87 /min Respiratory Rate 18 /min Body Temperature 99.4 F O2 % BldC Oximetry 99 % [place] Body Weight 110 lb Results Test Acquired Date Facility Test Result H/L Range Note Wet [place] Trichomonas 08/20/2020 [facility] Outpatient Hortensia ting (Registration) [address] [place], [place] [id number] [phone] Wet Prep WET PREP RESULT Normal 1 Chlamydia, GC & Trich Amp 08/20/2020 [facility] Outpatient Testing (Registration) [address] [place], [place] [id number] [phone] Chlamydia Dna Amplification NEGATIVE Normal Nega tive 2 GC Dna Amplification POSITIVE High Negative Trichomonas vaginalis (Amp) NOT DETECTED Normal Negative 3 Laboratory test finding 08/20/2020 [facility] Outpatient T esting (Registration) [address] [place], [place] [address] [phone] HCG, Serum Quantitative 2995 MIU/ML Normal 4 Hepatitis C Virus Kimberley Index 0.1 INDEX Normal <0.8 5 Hepatitis B Surface Antigen NEGATIVE Normal Negative Hepatitis B Surface Antibody POSITIVE Normal Positive Syphilis NONREACTIVE Normal Nonreactive HIV 1&2 Screen Centaur NEGATIVE Normal Negative 6 Ua W/ Reflex To Culture 08/20/2020 [facility] Outpatient T esting (Registration) [address] [place], [place] [address] [phone] Appearance, Urine RFX CLOUDY High Clear Color, Urine RFX YELLOW Normal Yellow PH,Urine RFX 5.0 units Normal 5.0-9.0 Specific Denbo Ur Auto RFX 1.025 Normal 1.002-1.035 Protein, [...] /LPF Normal 0-1 Reflex Urine Culture 08/20/2020 [facility] Outpatient Test ing (Registration) [address] [place] [address] [phone] Reflex Urine Culture FULL REPORT IN L <SEE NOTE> Norm al 7 CBC With Differential 05/04/2020 [facility] Outpatient [place]ens[place] ting (Registration) [address] [place] [address] [phone] White Blood Count 10.4 10 High 4.0-10.0 [...] 36.0-66.0 Lymph % 15.6 % Low 24.0-44.0 Tensas % 6.6 % High 0.0-5.0 Eos % 4.7 % High 0.0-3.0 Baso % 0.5 % Normal 0.0-1.0 Immature Granulocyte % 0.3 % Normal 0-3.0 Nucleated Red Blood Cell % 0.0 % Normal 0-0 Neutrophils # 7.5 10 Normal 1.5-8.5 Lymph # 1.6 10 Normal 1.5-5.0 Tensas # 0.7 10 Normal 0.0-0.8 Eos # 0.5 10 Normal 0.0-0.5 Baso # 0.1 10 Normal 0.0-0.2 Liver Profile 05/04/2020 [facility] Outpatient Testi ng (Registration) [address] [place] [address] [phone] Ast/Sgot 9 U/L Normal 7-37 Alt/SGPT 25 U/L Normal 12-78 Alkaline Phosphatase 82 U/L Normal 45-117 Bilirubin,Total 0.2 mg/dL Normal 0.2-1.0 Bilirubin,Direct < 0.1 mg/dL Normal 0.0-0.2 Total Protein 7.4 GM/DL Normal 6.4-8.2 Albumin 3.5 GM/DL Normal 3.2-5.2 Albumin/Globulin Ratio 0.9 Low 1.2-2.2 Basic Metabolic Profile 05/04/2020 [facility] Outpatient T esting (Registration) [address] [place] [address] [phone] Glucose, Fasting 91 mg/dL Normal 70-100 Blood Urea Nitrogen 10 mg/dL Normal 7-18 Creatinine For GFR 0.69 mg/dL Normal 0.55-1.30 Glomerular Filtration Rate > 60.0 Normal >60 8 Sodium Level 140 mEq/L Normal 136-145 Potassium Serum 4.0 mEq/L Normal 3.5-5.1 Chloride Level 109 mEq/L High 98-107 Carbon Dioxide Level 25 mEq/L Normal 21-32 Anion Gap 6 mEq/L Low 8-16 Calcium Level 9.3 mg/dL Normal 8.5-10.1 Laboratory test finding 05/04/2020 [facility] Outpatient T esting (Registration) [address] [place] [address] [phone] Lipase 49 U/L Low 73-393 Cardiac Marker Panel 05/04/2020 [facility] Outpatient Test ing (Registration) [address] [place] [address] [phone] CPK Creatine Phosphokinase 100 U/L Normal 26-19 2 CK-MB Value Mass < 1.0 NG/ML Normal <3.6 MB/CK Relative Index 1.00 Normal < Or =4 9 Troponin I < 0.02 NG/ML Normal < 0.10 10 Laboratory test finding 05/04/2020 [facility] Outpatient T esting (Registration) [address] [place] [address] [phone] HCG Serum Qualitative NEGATIVE Normal Negative 1 [...] monitoring the treatment of cancer patients. Siemens [email or web address] methodology. 5 Negative Not infected with HCV, unless recent infection is suspected or other evidence exists to indicate HCV infection. 6 This assay was performed uti lizing a chemiluminescent principle technique for the simultaneous qualitative detection of HIV-1 p24 antigen & antibodies to HIV-1 (including group O) & HIV-2 using the [employer] system. The estimated 95% confidence interval for sensitivity of this antigen/antibody combination assay for HIV-1&2 antibodies is 99.7-100% and HIV p24 antigen is 89.4-99.9%. The estimated 95% confidence interval for specificity of this antigen/antibody combination in low risk populations is 99.6-99.8%. 7 FULL REPORT IN LAB NOTES (eC W [...] SPCTRM BETA LACTAMASE IV NEGATIVE FOR ESBL 8 Units are mL/min/1.73 m2 Chronic Kidney Disease Staging per NKF: Stage I & II GFR >=60 Normal to Mildly Decreased Stage III GFR 30-59 Moderately Decreased Stage IV GFR 15-29 Severely Decreased Stage V GFR <15 Very Little GFR Left ESRD GFR <15 on [place] R[place]ER 9 DIAGNOSIS CRITERIA MMB ng/ml Relative Index (RI) NON-AMI < or = 5 N/A REEDER ZONE > 5 < or = 4 AMI > 5 > 4 10 Troponin I Reference Interva l for [employer]ens [employer]amegl[employer]it LOCI: 99th Percentile= 0.00-0.045 ng/ml Risk Stratification: [...]
--- OUTSIDE RECORDS SUMMARY | 2020-10-20 16:44 | CCD ---
Author Author [facility] Organization [facility] Address Unknown Phone Unavailable Support Name Relationship Address Phone [place] [address] ARBYSWTN Next Of Kin [address] [place] [address] [place] [address] [place] [facility] [place] [address] [facility] Next Of Kin [address] [place] [address] [place] [address] SUSHANT CHRISTIE Next Of Kin [address] [place] [address] KIMBERLY ARCHER Next Of Kin [address] [place] [address] UE Next Of Kin Unknown Unavailable ST Next Of Kin Unknown Unavailable JONATHAN CALLE Next Of Kin [address] [place] [address] JONATHAN JACKSON Next Of Kin [address] [place] [address] RONA PETERSON Next Of Kin [address] [place] [address] BHARATI CALLE Next Of Kin [address] [place] [address] MANUEL, (LEGAL GUARDIAN) [employer]PIT Next Of Kin [address] [place] [address] [employer] [address] FAMILY DOLLAR Next Of Kin [address] [place] [address] MANUEL GREG Next Of Kin [address] [place] [address] BASSAM SANTANA Next Of Kin [address] [place] [address] DWIGHT SHIRLEY Next Of Kin [address] [place] [address] Care Team Providers Care [employer] Name Role Phone Daria Drake JR, MD Unavailable Unavailable Daria Drake JR, MD Unavailable Unavailable Daria Drake JR, MD Unavailable Unavailable Daria Drake JR, MD Unavailable Unavailable Daria Drake JR, MD Unavailable Unavailable Daria Drake JR, MD Unavailable Unavailable Daria Drake JR, MD Unavailable Unavailable Daria Drake JR, MD Unavailable Unavailable Daria Drake JR, MD Unavailable Unavailable Daria Drake JR, MD Unavailable Unavailable Daria Drake JR, MD Unavailable Unavailable Daria Drake JR, MD Unavailable Unavailable Daria Drake JR, MD Unavailable Unavailable Daria Drake JR, MD Unavailable Unavailable Daria Drake JR, MD Unavailable Unavailable Daria Drake JR, MD Unavailable Unavailable Daria Drake JR, MD Unavailable Unavailable Daria Drake JR, MD Unavailable Unavailable Daria Drake JR, MD Unavailable Unavailable Daria Drake JR, MD Unavailable Unavailable Daria Drake JR, MD Unavailable Unavailable Daria Drake JR, MD Unavailable Unavailable Daria Drake JR, MD Unavailable Unavailable Daria Drake JR, MD Unavailable Unavailable Daria Drake JR, MD Unavailable Unavailable Daria Drake JR, MD Unavailable Unavailable Daria Drake JR, MD Unavailable Unavailable Daria Drake JR, MD Unavailable Unavailable Daria Drake JR, MD Unavailable Unavailable Daria Drake JR, MD Unavailable Unavailable Daria Drake JR, MD Unavailable Unavailable Daria Drake JR, MD Unavailable Unavailable Daria Drake JR, MD Unavailable Unavailable Daria Drake JR, MD Unavailable Unavailable Daria Drake JR, MD Unavailable Unavailable Daria Drake JR, MD Unavailable Unavailable Daria Drake JR, MD Unavailable Unavailable Daria Drake JR, MD Unavailable Unavailable Daria Drake JR, MD Unavailable Unavailable Daria Drake JR, MD Unavailable Unavailable Daria Drake JR, MD Unavailable Unavailable Daria Drake JR, MD Unavailable Unavailable Daria Drake JR, MD Unavailable Unavailable Daria Drake JR, MD Unavailable Unavailable Daria Drake JR, MD Unavailable Unavailable Daria Drake JR, MD Unavailable Unavailable Daria Drake JR, MD Unavailable Unavailable Daria Drake JR, MD Unavailable Unavailable Daria Drake JR, MD Unavailable Unavailable Daria Drake JR, MD Unavailable Unavailable Daria Drake JR, MD Unavailable Unavailable Daria Drake JR, MD Unavailable Unavailable Daria Drake JR, MD Unavailable Unavailable Daria Drake JR, MD Unavailable Unavailable Daria Drake JR, MD Unavailable Unavailable Daria Drake JR, MD Unavailable Unavailable Daria Drake JR, MD Unavailable Unavailable O'sophia, A Sohail PA Unavailable Unavailable O'sophia, A Sohail PA Unavailable Unavailable O'sophia, A Sohail PA Unavailable Unavailable O'sophia, A Sohail PA Unavailable Unavailable O'sophia, A Sohail PA Unavailable Unavailable O'sophia, A Sohail PA Unavailable Unavailable O'sophia, A Sohail PA Unavailable Unavailable O'sophia, A Sohail PA Unavailable Unavailable O'sophia, A Sohail PA Unavailable Unavailable O'sophia, A Sohail PA Unavailable Unavailable O'sophia, A Sohail PA Unavailable Unavailable O'sophia, A Sohail PA Unavailable Unavailable O'sophia, A Sohail PA Unavailable Unavailable O'sophia, A Sohail PA Unavailable Unavailable O'sophia, A Sohail PA Unavailable Unavailable O'sophia, A Sohail PA Unavailable Unavailable O'sophia, A Sohail PA Unavailable Unavailable O'sophia, A Sohail PA Unavailable Unavailable O'sophia, A Sohail PA Unavailable Unavailable O'sophia, A Sohail PA Unavailable Unavailable O'sophia, A Sohail PA Unavailable Unavailable O'sophia, A Sohail PA Unavailable Unavailable O'sophia, A Sohail PA Unavailable Unavailable O'sophia, A Sohail PA Unavailable Unavailable O'sophia, A Sohail PA Unavailable Unavailable O'sophia, A Sohail PA Unavailable Unavailable O'sophia, A Sohail PA Unavailable Unavailable O'sophia, A Sohail PA Unavailable Unavailable O'sophia, A Sohail PA Unavailable Unavailable O'sophia, A Sohail PA Unavailable Unavailable O'sophia, A Sohail PA Unavailable Unavailable O'sophia, A Sohail PA Unavailable Unavailable O'sophia, A Sohail PA Unavailable Unavailable Re-disclosure Warning The records that you are about to access may contain information from federally-assisted alcohol or drug abuse programs. If such information is present, then the following federally mandated warning applies: This information has been disclosed to you from records protected by federal confidentiality rules (42 CFR part 2). The federal rules prohibit you from making any further disclosure of this information unless further disclosure is expressly permitted by the written consent of the person to whom it pertains or as otherwise permitted by 42 CFR part 2. A general authorization for the release of medical or other information is NOT sufficient for this purpose. The Federal rules restrict any use of the information to criminally investigate or prosecute any alcohol or drug abuse patient.The records that you are about to access may contain highly sensitive health information, the redisclosure of which is protected by Article 27-F of the [facility] Public Health law. If you continue you may have access to information: Regarding HIV / AIDS; Provided by facilities licensed or operated by the [facility] Office of Mental Health; or Provided by the [facility] Office for People With Developmental Disabilities. If such information is present, then the following [facility] mandated warning applies: This information has been disclosed to you from confidential records which are protected by state law. State law prohibits you from making any further disclosure of this information without the specific written consent of the person to whom it pertains, or as otherwise permitted by law. Any unauthorized further disclosure in violation of state law may result in a fine or care home sentence or both. A general authorization for the release of medical or other information is NOT sufficient authorization for further disc losure. Family History Family Member Name Family Member Gender Family Member Status Date o f Status Description Data Source(s) Unknown Female Problem [facility] ([facility]) Encounters Encounter Providers Location Date Indications Data Source(s ) Outpatient Attender: Bautista Wong/Chapito/Eder/Ekta bates 05/18/2020 01:00:00 PM EDT [facility] ([facility]) Outpatient Attender: Sohail CHEN [facility] 09/08/2019 09:30:00 AM EST [facility] ([facility]) Medications Medication Brand Name Start Date Product Form Dose Route Admi nistrative Instructions Pharmacy Instructions Status Indications Reaction Description Data Source(s) Sucralfate 1000 MG Oral Tablet [Carafate] Carafate 07/07/2020 1 2:00:00 AM EST ORAL active [facility] ([facility], ) No Active Medications 05/18/2020 12:00:00 AM EDT completed [facility] ([facility], ) Omeprazole 40 MG Delayed Release Oral Capsule Omeprazole 05/18/2020 12:00:00 AM EDT ORAL active [facility] ([facility], ) tizanidine 2 MG Oral Tablet Tizanidine HCL 09/08/2019 12:00:00 AM EST ORAL active [facility] ([facility]) Cyclobenzaprine hydrochloride 5 MG Oral Tablet Cyclobenzapri ne HCL 03/18/2019 12:00:00 AM EDT ORAL completed [facility] ([facility]) Insurance Providers Payer name Policy type / Coverage type Policy ID Covered green party ID Covered green party's relationship to hernandez Policy Hernandez Plan Information [facility] COMM[facility]ITY [facility] MCDO [id number] SP [id number] [facility] O [id number] S [id number] [facility] Community Plan Commercial [id number] Self [id number] [facility] [id number] Self [id number] Medicaid [place] Medicaid [id number] Self [id number] UNHC COMMUNITY PLAN MCDO [id number] SP [id number] UNHC COMMUNITY PLAN MCDO [id number] SP [id number] MEDICAID [id number] SP [id number] UNHC COMMUNITY PLAN MCDO [id number] SP [id number] [place]ATN 306/806 [id number] SP [id number] [facility] [id number] S [id number] UNHC COMMUNITY PLAN MCDO [id number] SP [id number] UNHC COMMUNITY PLAN MCDHMO [id number] SP [id number] [facility] [id number] [facility] [id number] SELF PAY UNAVAILABLE SP UNAVAILA BLE [id number] Results ID Date Data Source [id number] 08/20/2020 07:36:00 PM EST [facility] ([facility]) Name Value Range Interpretation Code Description Data Briana rce(s) Supporting Document(s) GC Dna Amplification Laboratory test result Above high nor mal [facility]) Chlamydia Dna Amplification Laboratory test result Normal (applies to non- numeric results) [facility]) A negative test result does not exclude the possibility of infection because test results may be affected by improper specimen collection, technical error, specimen mix-up, concurrent antibiotic therapy, or the number of organisms in the specimen which may be below the sensitivity of the test. Laboratory test finding (navigational concept) Laboratory test r esult Normal (applies to non-numeric results) [facility] ([facility]) A negative test result does not exclude the possibility of infection because test results may be affected by improper specimen collection, technical error, sample mix-up, or because the number of organisms in the sample is below the limit of detection of the test. ID Date Data Source [id number] 08/20/2020 07:36:00 PM EST [facility]) Name Value Range Interpretation Code Description Data Briana rce(s) Supporting Document(s) Wet Prep Laboratory test result Normal (applies to non-n umeric results) [facility] ([facility]) MANY SHORT RODS PRESENT MODERATE CLUE CELLS PRESENT FEW WBC ID Date Data Source [id number] 08/20/2020 07:20:00 PM [facility]) Name Value Range Interpretation Code Description Data Briana rce(s) Supporting Document(s) Hepatitis C virus Ab [Units/volume] in Serum by Immunoassay 0.1 INDEX Normal (applies to non-numeric results) [facility]) Negative Not infected with HCV, unless recent infection is suspected or other evidence exists to indicate HCV infection. Choriogonadotropin.beta subunit [Moles/volume] in Serum or Plasm a 2995 MIU/ML Normal (applies to non-numeric results) [facility] ([facility]) GESTATIONAL AGE APPROXIMATE HCG RANGE (MIU/ML) - [...] monitoring the treatment of cancer patients. Siemens Geekangels methodology. Reagin Ab [Presence] in Serum by RPR Laboratory test result Normal (applies to non-numeric results) [facility] ([facility]) Hepatitis B virus surface Ab [Presence] in Serum by Im munoassay Laboratory test result Normal (applies to non-numeric results) [facility]) Hepatitis B virus surface Ag [Presence] in Serum or Pl asma by Immunoassay Laboratory test result Normal (applies to non-numeric results) [facility] ([facility]) HIV 1+2 Ab [Presence] in Serum Laboratory test result Normal (applies to non- numeric results) [facility] ([facility]) <content>This assay was performed utiliz ing a chemiluminescent</content>
<content>principle technique for the simultaneous qualitative</content>
<content>detection of HIV-1 p24 antigen & antibodies to HIV-1</content>
<content>(including group O) & HIV-2 using the Siemens sourceasyaur XP</content>
<content>system.</content>
<content>The estimated 95% confidence interval for sensitivity of</content>
<content>this antigen/antibody combination assay for HIV-1&2</content>
<content>antibodies is 99.7-100% and HIV p24 antigen is 89.4-99.9%.</content>
<content>The estimated 95% confidence interval for specificity of</content>
<content>this antigen/antibody combination in low risk populations is</content>
<content>99.6-99.8%.</content>
<content></content> ID Date Data Source [id number] 08/20/2020 06:45:00 PM EST [facility] ([facility]) Name Value Range Interpretation Code Description Data Briana rce(s) Supporting Document(s) Reflex Urine Culture Laboratory test result Norm al (applies to non-numeric results) [facility] ([facility]) <content>FULL REPORT IN LAB NOTES ([facility] a nd [facility]).</content>
<content></content>
<content>ORGANISM 1: ESCHERICHIA COLI</content>
<content></content>
<content>COLONY COUNT > 100,000</content>
<content></content>
<content></content>
<content>O RGANISM 1: ESCHERICHIA COLI</content>
<content></content>
<content> ESCHERICHIA COLI: REACTION</content>
<content>TRIMETHOPRIM/SULFAMETHOXAZOLE IV 160mg TMP & 800mg SMXq6h <=20 S</content>
<content> TRIMETHOPRIM/SULFAMETHOXAZOLE PO Bactrim DS Bid <=20 S</content>
<content>AMPICILLIN IV 500mg q6h <=2 S</content>
<content>AMPICILLIN PO 500mg q6h fasting <=2 S</content>
<content>GENTAMICIN IV 80mg q8h <=1 S</content>
<content>NITROFURANTOIN PO 100mg BID <=16 S</content>
<content>CEFAZOLIN IV 1gm q8h <=4 S</content>
<content>LEVOFLOXACIN IV 500mg qd <=0.12 S</content>
<content>LEVOFLOXACIN PO 250mg qd <=0.12 S</content>
<content>LEVOFLOXACIN PO 500mg qd <=0.12 S</content>
<content>TOBRAMYCIN IV 80mg q8h <=1 S</content>
<content> CEFTRIAXONE IV 1gm q24h <=1 S</content>
<content>CEFTAZIDIME IV 1gm q8h <=1 S</content>
<content>AMPICILLIN/SULBACTAM IV 1.5g q6h <=2 S</content>
<content>PIPERACILLIN/TAZOBACTAM IV 2.25 gm q6h <=4 S</content>
<content>AZTREONAM IV 1gm q8h <=1 S</content>
<content>ERTAPENEM IV 1gm qd <=0.5 S</content>
<content> MEROPENEM IV 1 gm q8h <=0.25 S</content>
<content>MEROPENEM IV 500 mg q8h <=0.25 S</content>
<content>TIGECYCLINE IV 50mg q12h <=0.5 S</content>
<content>CEFEPIME IV 1 gm q12h <=1 S</content>
<content>CEFEPIME IV 2 gm q12h <=1 S</content>
<content>EXTD BRD SPCTRM BETA LACTAMASE IV NEGATIVE FOR ESBL</content>
<content></content> ID Date Data Source [id number] 08/20/2020 06:45:00 PM EST [facility] ([facility]) Name Value Range Interpretation Code Description Data Briana rce(s) Supporting Document(s) Appearance, Urine RFX Laboratory test result Above high no rmal [facility] ([facility]) PH,Urine RFX 5.0 units 5.0-9.0 Normal (applies to non-numeric res ults) [facility] ([facility]) Color, Urine RFX Laboratory test result Normal ( applies to non-numeric results) [facility] ([facility]) Glucose, Urine (Ua) Auto RFX Laboratory test result Normal (applies to non- numeric results) [facility] ([facility]) Protein, Urine Auto RFX Laboratory test result N ormal (applies to non-numeric results) [facility]) Specific [place] Ur Auto RFX 1.025 1.002-1.035 Nor mal (applies to non-numeric results) [facility] ([facility]) Nitrite, Urine Auto RFX Laboratory test result N ormal (applies to non-numeric results) [facility] ([facility]) Bilirubin, Urine Auto RFX Laboratory test result Normal (applies to non- numeric results) [facility] ([facility]) Urobilinogen, Urine Auto RFX 2.0 mg/dL 0.0-2.0 Above high normal [facility] ([facility]) Ketone, Urine Auto RFX Laboratory test result No rmal (applies to non-numeric results) [facility] ([facility]) Leukocyte Esterase Ur Auto RFX Laboratory test result Abov e high normal [facility] ([facility]) Blood, Urine Blood RFX Laboratory test result No rmal (applies to non-numeric results) [facility] ([facility]) WBC, Urine Auto RFX 16 /HPF 0-3 Above high normal [facility] ([facility]) Squam Epithelial Cell Ur Aurfx 13 /HPF 0-6 N ormal (applies to non-numeric results) [facility] ([facility]) Bacteria, Urine Auto RFX Laboratory test result Above high normal [facility] ([facility]) RBC, Urine Auto RFX 2 /HPF 0-3 Normal (applies to non-nume rd results) [facility] ([facility]) Mucus, Urine RFX Laboratory test result Normal ( applies to non-numeric results) [facility] ([facility]) Hyaline Cast, Urine Auto RFX 0 /LPF 0-1 Normal (appl ies to non-numeric results) [facility] ([facility]) ID Date Data Source [id number] 07/07/2020 11:14:00 AM EST [facility] Name Value Range Interpretation Code Description Data Briana rce(s) Supporting Document(s) Surgical pathology study Laboratory test result [facility] ([facility], ) FINAL DIAGNOSIS Esophagus, distal, biopsy: Columnar mucosa with foveolar hyperplasia and mild inflammation. No intestinal metaplasia is identified. No squamous mucosa seen. 07/08/20201444 CLINICAL DIAGNOSIS GERD 07/08/2020714 GROSS DIAGNOSIS Received in formalin labeled "biopsy distal esophagus" and consists of a fragment of tissue, 0.1 x 0.1 x 0.1 cm. All in one. -OA 07/08/2020714 Signed TORRES MIRANDA MD 07/08/2020 1446 ID Date Data Source [id number] 05/04/2020 06:25:00 AM EDT [facility] ([facility]) Name Value Range Interpretation Code Description Data Briana rce(s) Supporting Document(s) Ast/Sgot 9 U/L 7-37 Normal (applies to non-numeric resul ts) [facility] ([facility]) Alkaline Phosphatase 82 U/L 45-117 Normal (applies to non-num svetlana results) [facility] ([facility]) Alt/SGPT 25 U/L 12-78 Normal (applies to non-numeric resul ts) [facility] ([facility]) Bilirubin,Total 0.2 mg/dL 0.2-1.0 Normal (applies to non-numeric results) [facility] ([facility]) Bilirubin,Direct Laboratory test result 0.0-0.2 Normal ( applies to non-numeric results) [facility] ([facility]) Albumin 3.5 GM/DL 3.2-5.2 Normal (applies to non-numeric resul ts) [facility] ([facility]) Total Protein 7.4 GM/DL 6.4-8.2 Normal (applies to non-numeric re sults) [facility] ([facility]) Albumin/Globulin Ratio 0.9 1.2-2.2 Below low normal [facility] ([facility]) ID Date Data Source [id number] 05/04/2020 06:25:00 AM EDT [facility] ([facility]) Name Value Range Interpretation Code Description Data Briana rce(s) Supporting Document(s) White Blood Count 10.4 10 4.0-10.0 Above high normal [facility] ([facility]) Hemoglobin 12.5 g/dL 12.0-15.5 Normal (applies to non-numeric resul ts) [facility] ([facility]) Red Blood Count 4.41 10 4.00-5.40 Normal (applies to non-numeric results) [facility] ([facility]) Mean Corpuscular Hemoglobin 28.3 pg 27.0-33.0 Norm al (applies to non-numeric results) [facility] ([facility]) Hematocrit 39.9 % 36.0-47.0 Normal (applies to non-numeric resul ts) [facility] ([facility]) Mean Corpuscular Volume 90.5 fl 80.0-96.0 Normal ( applies to non-numeric results) [facility] ([facility]) Platelet Count, Automated 502 10 150-450 Above high normal [facility] ([facility]) Red Cell Distribution Width 14.6 % 11.5-14.5 Above high normal [facility] ([facility]) Mean Corpuscular HGB Conc 31.3 g/dL 32.0-36.5 Below low normal [facility] ([facility]) [place] % 6.6 % 0.0-5.0 Above high normal [facility] ([facility]) Neutrophils % 72.3 % 36.0-66.0 Above high normal [facility] ([facility]) Lymph % 15.6 % 24.0-44.0 Below low normal [facility] ( [facility]) Immature Granulocyte % 0.3 % 0-3.0 Normal (applies to non-n umeric results) [facility] ([facility]) Baso % 0.5 % 0.0-1.0 Normal (applies to non-numeric resul ts) [facility] ([facility]) Eos % 4.7 % 0.0-3.0 Above high normal [facility] ([facility]) Lymph # 1.6 10 1.5-5.0 Normal (applies to non-numeric resul ts) [facility] ([facility]) Neutrophils # 7.5 10 1.5-8.5 Normal (applies to non-numeric re sults) [facility] ([facility]) Nucleated Red Blood Cell % 0.0 % 0-0 Normal (applies to n on-numeric results) [facility] ([facility]) [place] # 0.7 10 0.0-0.8 Normal (applies to non-numeric resul ts) [facility] ([facility]) Baso # 0.1 10 0.0-0.2 Normal (applies to non-numeric resul ts) [facility] ([facility]) Eos # 0.5 10 0.0-0.5 Normal (applies to non-numeric resul ts) [facility] ([facility]) ID Date Data Source [id number] 05/04/2020 06:25:00 AM EDT [facility] ([facility]) Name Value Range Interpretation Code Description Data Briana rce(s) Supporting Document(s) Choriogonadotropin.beta subunit ( test) [Pres ence] in Serum or Plasma Laboratory test result Normal (applies to non-numeric results) [facility] ([facility]) ID Date Data Source [id number] 05/04/2020 06:25:00 AM EDT [facility] ([facility]) Name Value Range Interpretation Code Description Data Briana rce(s) Supporting Document(s) CPK Creatine Phosphokinase 100 U/L 26-192 Giuliana l (applies to non-numeric results) [facility] ([facility]) CK-MB Value Mass Laboratory test result Normal ( applies to non-numeric results) [facility] ([facility]) MB/CK Relative Index 1.00 Normal (applies to non-num svetlana results) [facility] ([facility]) <content>DIAGNOSIS CRITERIA</content>
<content>MMB ng/ml Relative Index (RI)</content>
<content>NON-AMI < or = 5 N/A</content>
<content>REEDER ZONE > 5 < or = 4</content>
<content>AMI > 5 > 4</content>
<content></content> Troponin I Laboratory test result Normal (applies to non-n umeric results) [facility] ([facility]) <content>Troponin I Reference Interval f or Siemens [place] LOCI:</content>
<content></content>
<content>99th Percentile= 0.00-0.045 ng/ml</content>
<content></content>
<content>Risk Stratification:</content>
<content><= 0.10 ng/ml Decreased Risk for Adverse Clinical</content>
<content>Events.</content>
<content>0.10-1.50 ng/ml Increased Risk for Adverse Clinical</content>
<content>Events. Evaluation of additional</content>
<content>criterion and/or repeat testing in 2-6</content>
<content>hours is suggested to rule out myocardial</content>
<content>damage.</content>
<content>>= 1.50 ng/ml Indicative of Myocardial Injury.</content>
<content></content> ID Date Data Source [id number] 05/04/2020 06:25:00 AM EDT [facility]) Name Value Range Interpretation Code Description Data Briana rce(s) Supporting Document(s) Lipase [Enzymatic activity/volume] in Serum or Plasma 49 U/L 73-393 Below low normal [facility] ([facility]) ID Date Data Source [id number] 05/04/2020 06:25:00 AM EDT [facility] [facility]) Name Value Range Interpretation Code Description Data Briana rce(s) Supporting Document(s) Glucose, Fasting 91 mg/dL 70-100 Normal (applies to non-numeric results) [facility] ([facility]) Blood Urea Nitrogen 10 mg/dL 7-18 Normal (applies to non-nume rd results) [facility] ([facility]) Sodium Level 140 meq/L 136-145 Normal (applies to non-numeric res ults) [facility] ([facility]) Creatinine For GFR 0.69 mg/dL 0.55-1.30 Normal (applies to non -numeric results) [facility] ([facility]) Glomerular Filtration Rate Laboratory test result Normal (applies to non- numeric results) [facility] ([facility]) <content>Units are mL/min/1.73 m2</content>
<content></content>
<content>Chronic Kidney Disease Staging per NKF:</content>
<content></content>
<content>Stage I & II GFR >=60 Normal to Mildly Decreased</content>
<content>Stage III GFR 30-59 Moderately Decreased</content>
<content>Stage IV GFR 15-29 Severely Decreased</content>
<content>Stage V GFR <15 Very Little GFR Left</content>
<content>ESRD GFR <15 on ROOM ATTENDANT</content>
<content></content> Carbon Dioxide Level 25 meq/L 21-32 Normal (applies to non-num svetlana results) [facility]) Chloride Level 109 meq/L 98-107 Above high normal [facility] ([facility]) Potassium Serum 4.0 meq/L 3.5-5.1 Normal (applies to non-numeric results) [facility] ([facility]) Calcium Level 9.3 mg/dL 8.5-10.1 Normal (applies to non-numeric re sults) [facility] ([facility]) Anion Gap 6 meq/L 8-16 Below low normal [facility] ( [facility]) Procedure Vital Signs ID Date Data Source UNK Name Value Range Interpretation Code Description Data Source(s) Body weight 86.297 kg 86.297 kg [facility] ([facility]) [place] body weight 115 [lb_av] 115 [lb_av] [facility] ([facility]) Body mass index (BMI) [Ratio] 33.7 kg/m2 33.7 k g/m2 [facility] ([facility]) Body weight 190.25 [lb_av] 190.25 [lb_av] [facility] ([facility]) Body height 63 [in_i] 63 [in_i] [facility]) 5'3" Diastolic blood pressure 60 mm[Hg] 60 mm[Hg] [facility]) Systolic blood pressure 110 mm[Hg] 110 mm[Hg] M [facility] ([facility]) Body weight 86.184 kg 86.184 kg [facility] ([facility]) [place] body weight 115 [lb_av] 115 [lb_av] [facility] Body mass index (BMI) [Ratio] 33.7 kg/m2 33.7 k g/m2 [facility] ([facility]) Body weight 190.00 [lb_av] 190.00 [lb_av] [facility] ([facility]) Body height 63 [in_i] 63 [in_i] [facility] ([facility]) 5'3" Diastolic blood pressure 77 mm[Hg] 77 mm[Hg] [facility] ([facility]) Systolic blood pressure 111 mm[Hg] 111 mm[Hg] [facility] [place] body weight 110 [lb_av] 110 [lb_av] [facility] ([facility]) Oxygen saturation in Arterial blood by Pulse oximetry 98 % 98 % [facility] ([facility]) Body temperature 98.6 [degF] 98.6 [degF] [facility] ([facility]) Respiratory rate 16 /min 16 /min [facility] ( [facility]) Heart rate 73 /min 73 /min [facility] ([facility]) Body mass index (BMI) [Ratio] 32.1 kg/m2 32.1 k g/m2 [facility] ([facility]) Body weight 179.38 [lb_av] 179.38 [lb_av] [facility] ([facility]) Body height 62.7 [in_i] 62.7 [in_i] [facility] ([facility]) 5'2.70" Diastolic blood pressure 88 mm[Hg] 88 mm[Hg] [facility] ([facility]) Systolic blood pressure 120 mm[Hg] 120 mm[Hg] [facility]
--- OUTSIDE RECORDS SUMMARY | 2020-10-20 16:44 | CCD | Continuity of Care Document ---
Author Author Andria MEEKS D.O. Organization Unknown Address [id number] [place] [address] Phone [phone] Care Team Providers Care Unemployment Claims Adjudicator Name Role Phone Magnolia Meeks D.O. AUTM [phone] Problems Description No Information Available Social History [...] F O2 % BldC Oximetry 98 % [place] Body Weight 110 lb 03/18/2019 3:05pm BP Systolic 112 mmHg BP Diastolic 66 mmHg Height 62.7 inches 5'2.70" Weight 170.00 lb BMI (Body Mass Index) 30.4 kg/m2 Heart Rate 87 /min Respiratory Rate 18 /min Body Temperature 99.4 F O2 % BldC Oximetry 99 % [place] Body Weight 110 lb Results Test Acquired Date Facility Test Result H/L Range Note Wet [place] Trichomonas 08/20/2020 [facility] Outpatient Hortensia ting (Registration) [address] [place] [address] [phone] Wet Prep WET PREP RESULT Normal 1 Chlamydia, GC & Trich Amp 08/20/2020 [facility] Outpatient Testing (Registration) [address] [place], [place] [id number] [phone] Chlamydia Dna Amplification NEGATIVE Normal Nega tive 2 GC Dna Amplification POSITIVE High Negative Trichomonas vaginalis (Amp) NOT DETECTED Normal Negative 3 Laboratory test finding 08/20/2020 [facility] Outpatient T esting (Registration) [address] [place] [phone] HCG, Serum Quantitative 2995 MIU/ML Normal 4 Ua W/ Reflex To Culture 08/20/2020 [facility] Outpatient T esting (Registration) [address] [place] [phone] Appearance, Urine RFX CLOUDY High Clear Color, Urine RFX YELLOW Normal Yellow PH,Urine RFX 5.0 units Normal 5.0-9.0 Specific [place] Ur Auto RFX 1.025 Normal 1.002-1.035 Protein, [...] /LPF Normal 0-1 Reflex Urine Culture 08/20/2020 [facility] Outpatient Test ing (Registration) [address] [place] [address] [phone] Reflex Urine Culture FULL REPORT IN L <SEE NOTE> Norm al 5 CBC With Differential 05/04/2020 [facility] Outpatient Hortensia ting (Registration) [address] [place] [address] [phone] White Blood Count 10.4 10 High 4.0-10.0 [...] 36.0-66.0 Lymph % 15.6 % Low 24.0-44.0 [place] % 6.6 % High 0.0-5.0 Eos % 4.7 % High 0.0-3.0 Baso % 0.5 % Normal 0.0-1.0 Immature Granulocyte % 0.3 % Normal 0-3.0 Nucleated Red Blood Cell % 0.0 % Normal 0-0 Neutrophils # 7.5 10 Normal 1.5-8.5 Lymph # 1.6 10 Normal 1.5-5.0 [place] # 0.7 10 Normal 0.0-0.8 Eos # 0.5 10 Normal 0.0-0.5 Baso # 0.1 10 Normal 0.0-0.2 Liver Profile 05/04/2020 [facility] Outpatient Testi ng (Registration) [address] [place] [address] [phone] Ast/Sgot 9 U/L Normal 7-37 Alt/SGPT 25 U/L Normal 12-78 Alkaline Phosphatase 82 U/L Normal 45-117 Bilirubin,Total 0.2 mg/dL Normal 0.2-1.0 Bilirubin,Direct < 0.1 mg/dL Normal 0.0-0.2 Total Protein 7.4 GM/DL Normal 6.4-8.2 Albumin 3.5 GM/DL Normal 3.2-5.2 Albumin/Globulin Ratio 0.9 Low 1.2-2.2 Basic Metabolic Profile 05/04/2020 [facility] Outpatient T esting (Registration) [address] [place] [address] [phone] Glucose, Fasting 91 mg/dL Normal 70-100 Blood [...] mg/dL Normal 8.5-10.1 Laboratory test finding 05/04/2020 [facility] Outpatient T esting (Registration) [address] [place] [address] [phone] Lipase 49 U/L Low 73-393 Cardiac Marker Panel 05/04/2020 [facility] Outpatient Test ing (Registration) [address] [place] [address] [phone] CPK Creatine Phosphokinase 100 U/L Normal 26-19 2 CK-MB Value Mass < 1.0 NG/ML Normal <3.6 MB/CK Relative Index 1.00 Normal < Or =4 7 Troponin I < 0.02 NG/ML Normal < 0.10 8 Laboratory test finding 05/04/2020 [facility] Outpatient T esting (Registration) [address] [place] [address] [phone] HCG Serum Qualitative NEGATIVE Normal Negative 1 [...] monitoring the treatment of cancer patients. Siemens EcoFactor methodology. 5 FULL REPORT IN LAB NOTES [...] Little GFR Left ESRD GFR <15 on MANAGER [place] 7 DIAGNOSIS CRITERIA MMB ng/ml Relative Index (RI) NON-AMI < or = 5 N/A REEDER ZONE > 5 < or = 4 AMI > 5 > 4 8 Troponin I Reference Interva l for Cornice LOCI: 99th Percentile= 0.00-0.045 ng/ml Risk Stratification: [...]
--- OUTSIDE RECORDS SUMMARY | 2020-10-20 19:23 | CCD ---
Author Author [facility] Organization [facility] Address Unknown Phone Unavailable Support Name Relationship Address Phone [place] [address] ARBYSWTN Next Of Kin [address] [place] [address] [place] [address] [facility] [place] [address] [facility] Next Of Kin [address] [place] [address] [place] [address] SUSHANT CHRISTIE Next Of [place] [address] [place] [address] KIMBERLY ARCHER Next Of Kin [address] [place] [address] UE Next Of Kin Unknown Unavailable ST Next Of Kin Unknown Unavailable JONATHAN CALLE Next Of Kin [address] [place] [address] JONATHAN JACKSON Next Of Kin [address] [place] [address] RONA PETERSON Next Of Kin [address] [place] [address] BHARATI CALLE Next Of Kin [address] [place] [address] MANUEL, (LEGAL GUARDIAN) ARPIT Next Of Kin [address] [place] [address] [employer] [place] [address] FAMILY DOLLAR Next Of Kin [address] [place] [address] MANUEL GREG Next Of Kin [address] [place] [address] BASSAM SANTANA Next Of Kin [address] [place] [address] DWIGHT SHIRLEY Next Of Kin [address] [place] [address] Care Team Providers Care Dining Server Name Role Phone Daria Drake JR, MD Unavailable Unavailable Daria Drake JR, MD Unavailable Unavailable Daria Drake JR, MD Unavailable Unavailable Daria Drake JR, MD Unavailable Unavailable Daria Drake JR, MD Unavailable Unavailable Daria Draek JR, MD Unavailable Unavailable Daria Drake JR, [...] is protected by Article 27-F of the [facility] Public Health law. If you continue you may have access to information: Regarding HIV / AIDS; Provided by facilities licensed or operated by the [facility] Office of Mental Health; or Provided by the [facility] Office for People With Developmental Disabilities. If such information is present, then the following [facility] mandated warning applies: This information has been [...] law may result in a fine or nursing home sentence or both. A general authorization for the release of medical or other information is NOT sufficient authorization for further disc losure. Family History Family Member Name Family Member Gender Family Member Status Date o f Status Description Data Source(s) Unknown Female Problem [facility] ([facility]) Encounters Encounter Providers Location Date Indications Data Source(s ) Outpatient Attender: Bautista Wong/Chapito/Eder/Ekta bates 05/18/2020 01:00:00 PM EDT [facility] ([facility] Outpatient Attender: Sohail CHEN [facility] 09/08/2019 09:30:00 AM EST [facility] ([facility]) Medications Medication Brand Name Start Date Product Form Dose Route Admi nistrative Instructions Pharmacy Instructions Status Indications Reaction Description Data Source(s) Sucralfate 1000 MG Oral Tablet [Carafate] Carafate 07/07/2020 1 2:00:00 AM EST ORAL active [facility] ([facility], ) No Active Medications 05/18/2020 12:00:00 AM EDT completed [facility] ([facility], ) Omeprazole 40 MG Delayed Release Oral Capsule Omeprazole 05/18/2020 12:00:00 AM EDT ORAL active [facility] ([facility], ) tizanidine 2 MG Oral Tablet Tizanidine HCL 09/08/2019 12:00:00 AM EST ORAL active [facility] ([facility]) Cyclobenzaprine hydrochloride 5 MG Oral Tablet Cyclobenzapri ne HCL 03/18/2019 12:00:00 AM EDT ORAL completed [facility] ([facility]) Insurance Providers Payer name Policy type / Coverage type Policy ID Covered republican ID Covered republican's relationship to hernandez Policy Hernandez Plan Information [facility] MCDO [id number] SP [id number] [facility] O [id number] S [id number] [facility] Community Plan Commercial [id number] Self [id number] [facility] B [id number] Self [id number] [place] [id number] Self [id number] [employer] COMMUNITY PLAN MCDO [id number] SP [id number] [employer] COMMUNITY PLAN MCDO [id number] SP [id number] MEDICAID [id number] SP [id number] [employer] COMMUNITY PLAN MCDO [id number] SP [id number] [place] WATN 306/806 [id number] SP [id number] [facility] MEDICAID [facility] [id number] S [id number] [employer] COMMUNITY PLAN MCDO [id number] SP [id number] UNHC COMMUNITY PLAN MCDHMO [id number] SP [id number] [facility] [id number] [facility] [id number] SELF PAY UNAVAILABLE SP UNAVAILA BLE [id number] Results ID Date Data Source [id number] 08/20/2020 07:36:00 PM EST [facility] ([facility]) Name Value Range Interpretation Code Description Data Briana rce(s) Supporting Document(s) GC Dna Amplification Laboratory test result Above high nor mal [facility]) Chlamydia Dna Amplification Laboratory test result Normal (applies to non- numeric results) [facility]) A negative test result does not exclude the possibility of infection because test results may be affected by improper specimen collection, technical error, specimen mix-up, concurrent antibiotic therapy, or the number of organisms in the specimen which may be below the sensitivity of the test. Laboratory test finding (navigational concept) Laboratory test r esult Normal (applies to non-numeric results) [facility] ([facility]) A negative test result does not exclude the possibility of infection because test results may be affected by improper specimen collection, technical error, sample mix-up, or because the number of organisms in the sample is below the limit of detection of the test. ID Date Data Source [id number] 08/20/2020 07:36:[address] [facility]) Name Value Range Interpretation Code Description Data Briana rce(s) Supporting Document(s) Wet Prep Laboratory test result Normal (applies to non-n umeric results) [facility] ([facility]) MANY SHORT RODS PRESENT MODERATE CLUE CELLS PRESENT FEW WBC ID Date Data Source [id number] 08/20/2020 07:20:00 PM [facility]) Name Value Range Interpretation Code Description Data Briana rce(s) Supporting Document(s) Hepatitis C virus Ab [Units/volume] in Serum by Immunoassay 0.1 INDEX Normal (applies to non-numeric results) [facility]) Negative Not infected with HCV, unless recent infection is suspected or other evidence exists to indicate HCV infection. Choriogonadotropin.beta subunit [Moles/volume] in Serum or Plasm a 2995 MIU/ML Normal (applies to non-numeric results) [facility] ([facility]) GESTATIONAL AGE APPROXIMATE HCG RANGE (MIU/ML) - [...] monitoring the treatment of cancer patients. Siemens [place] Chamber methodology. Reagin Ab [Presence] in Serum by RPR Laboratory test result Normal (applies to non-numeric results) [facility] ([facility]) Hepatitis B virus surface Ab [Presence] in Serum by Im munoassay Laboratory test result Normal (applies to non-numeric results) [facility]) Hepatitis B virus surface Ag [Presence] in Serum or Pl asma by Immunoassay Laboratory test result Normal (applies to non-numeric results) [facility] ([facility]) HIV 1+2 Ab [Presence] in Serum Laboratory test result Normal (applies to non- numeric results) [facility] ([facility]) <content>This assay was performed utiliz ing a chemiluminescent</content>
<content>principle technique for the simultaneous qualitative</content>
<content>detection of HIV-1 p24 antigen & antibodies to HIV-1</content>
<content>(including group O) & HIV-2 using the Siemens TrekCafeaur XP</content>
<content>system.</content>
<content>The estimated 95% confidence interval for sensitivity of</content>
<content>this antigen/antibody combination assay for HIV-1&2</content>
<content>antibodies is 99.7-100% and HIV p24 antigen is 89.4-99.9%.</content>
<content>The estimated 95% confidence interval for specificity of</content>
<content>this antigen/antibody combination in low risk populations is</content>
<content>99.6-99.8%.</content>
<content></content> ID Date Data Source [id number] 08/20/2020 06:45:00 PM EST [facility] ([facility]) Name Value Range Interpretation Code Description Data Briana rce(s) Supporting Document(s) Reflex Urine Culture Laboratory test result Norm al (applies to non-numeric results) [facility] ([facility]) <content>FULL REPORT IN LAB NOTES (eCW a [...] FOR ESBL</content>
<content></content> ID Date Data Source [id number] 08/20/2020 06:45:00 PM EST [facility] ([facility]) Name Value Range Interpretation Code Description Data Briana rce(s) Supporting Document(s) Appearance, Urine RFX Laboratory test result Above high no rmal [facility] ([facility]) PH,Urine RFX 5.0 units 5.0-9.0 Normal (applies to non-numeric res ults) [facility] ([facility]) Color, Urine RFX Laboratory test result Normal ( applies to non-numeric results) [facility] ([facility]) Glucose, Urine (Ua) Auto RFX Laboratory test result Normal (applies to non- numeric results) [facility] ([facility]) Protein, Urine Auto RFX Laboratory test result N ormal (applies to non-numeric results) [facility]) Specific [place] Ur Auto RFX 1.025 1.002-1.035 Nor mal (applies to non-numeric results) [facility] ([facility]) Nitrite, Urine Auto RFX Laboratory test result N ormal (applies to non-numeric results) [facility] ([facility]) Bilirubin, Urine Auto RFX Laboratory test result Normal (applies to non- numeric results) [facility] ([facility]) Urobilinogen, Urine Auto RFX 2.0 mg/dL 0.0-2.0 Above high normal [facility] ([facility]) Ketone, Urine Auto RFX Laboratory test result No rmal (applies to non-numeric results) [facility] ([facility]) Leukocyte Esterase Ur Auto RFX Laboratory test result Abov e high normal [facility] ([facility]) Blood, Urine Blood RFX Laboratory test result No rmal (applies to non-numeric results) [facility] ([facility]) WBC, Urine Auto RFX 16 /HPF 0-3 Above high normal [facility] ([facility]) Squam Epithelial Cell Ur Aurfx 13 /HPF 0-6 N ormal (applies to non-numeric results) [facility] ([facility]) Bacteria, Urine Auto RFX Laboratory test result Above high normal [facility] ([facility]) RBC, Urine Auto RFX 2 /HPF 0-3 Normal (applies to non-nume rd results) [facility] ([facility]) Mucus, Urine RFX Laboratory test result Normal ( applies to non-numeric results) [facility] ([facility]) Hyaline Cast, Urine Auto RFX 0 /LPF 0-1 Normal (appl ies to non-numeric results) [facility] ([facility]) ID Date Data Source [id number] 07/07/2020 11:14:00 AM EST [facility] Name Value Range Interpretation Code Description Data Briana rce(s) Supporting Document(s) Surgical pathology study Laboratory test result [facility] ([facility], ) FINAL DIAGNOSIS Esophagus, distal, biopsy: Columnar [...] MD 07/08/2020 [id number] ID Date Data Source [id number] 05/04/2020 06:25:00 AM EDT [facility] ([facility]) Name Value Range Interpretation Code Description Data Briana rce(s) Supporting Document(s) Ast/Sgot 9 U/L 7-37 Normal (applies to non-numeric resul ts) [facility] ([facility]) Alkaline Phosphatase 82 U/L 45-117 Normal (applies to non-num svetlana results) [facility] ([facility]) Alt/SGPT 25 U/L 12-78 Normal (applies to non-numeric resul ts) [facility] ([facility]) Bilirubin,Total 0.2 mg/dL 0.2-1.0 Normal (applies to non-numeric results) [facility] ([facility]) Bilirubin,Direct Laboratory test result 0.0-0.2 Normal ( applies to non-numeric results) [facility] ([facility]) Albumin 3.5 GM/DL 3.2-5.2 Normal (applies to non-numeric resul ts) [facility] ([facility]) Total Protein 7.4 GM/DL 6.4-8.2 Normal (applies to non-numeric re sults) [facility] ([facility]) Albumin/Globulin Ratio 0.9 1.2-2.2 Below low normal [facility] ([facility]) ID Date Data Source [id number] 05/04/2020 06:25:00 AM EDT [facility] ([facility]) Name Value Range Interpretation Code Description Data Briana rce(s) Supporting Document(s) White Blood Count 10.4 10 4.0-10.0 Above high normal [facility] ([facility]) Hemoglobin 12.5 g/dL 12.0-15.5 Normal (applies to non-numeric resul ts) [facility] ([facility]) Red Blood Count 4.41 10 4.00-5.40 Normal (applies to non-numeric results) [facility] ([facility]) Mean Corpuscular Hemoglobin 28.3 pg 27.0-33.0 Norm al (applies to non-numeric results) [facility] ([facility]) Hematocrit 39.9 % 36.0-47.0 Normal (applies to non-numeric resul ts) [facility] ([facility]) Mean Corpuscular Volume 90.5 fl 80.0-96.0 Normal ( applies to non-numeric results) [facility] ([facility]) Platelet Count, Automated 502 10 150-450 Above high normal [facility] ([facility]) Red Cell Distribution Width 14.6 % 11.5-14.5 Above high normal [facility] ([facility]) Mean Corpuscular HGB Conc 31.3 g/dL 32.0-36.5 Below low normal [facility] ([facility]) [place] % 6.6 % 0.0-5.0 Above high normal [facility] ([facility]) Neutrophils % 72.3 % 36.0-66.0 Above high normal MEDE NT ([facility]) Lymph % 15.6 % 24.0-44.0 Below low normal [facility] ( [facility]) Immature Granulocyte % 0.3 % 0-3.0 Normal (applies to non-n umeric results) [facility] ([facility]) Baso % 0.5 % 0.0-1.0 Normal (applies to non-numeric resul ts) [facility] ([facility]) Eos % 4.7 % 0.0-3.0 Above high normal [facility] ([facility]) Lymph # 1.6 10 1.5-5.0 Normal (applies to non-numeric resul ts) [facility] ([facility]) Neutrophils # 7.5 10 1.5-8.5 Normal (applies to non-numeric re sults) [facility] ([facility]) Nucleated Red Blood Cell % 0.0 % 0-0 Normal (applies to n on-numeric results) [facility] ([facility]) [place] # 0.7 10 0.0-0.8 Normal (applies to non-numeric resul ts) [facility] ([facility]) Baso # 0.1 10 0.0-0.2 Normal (applies to non-numeric resul ts) [facility] ([facility]) Eos # 0.5 10 0.0-0.5 Normal (applies to non-numeric resul ts) [facility] ([facility]) ID Date Data Source [id number] 05/04/2020 06:25:00 AM EDT [facility] ([facility]) Name Value Range Interpretation Code Description Data Briana rce(s) Supporting Document(s) Choriogonadotropin.beta subunit ( test) [Pres ence] in Serum or Plasma Laboratory test result Normal (applies to non-numeric results) [facility] ([facility]) ID Date Data Source [id number] 05/04/2020 06:25:00 AM EDT [facility] ([facility]) Name Value Range Interpretation Code Description Data Briana rce(s) Supporting Document(s) CPK Creatine Phosphokinase 100 U/L 26-192 Giuliana l (applies to non-numeric results) [facility] ([facility]) CK-MB Value Mass Laboratory test result Normal ( applies to non-numeric results) [facility] ([facility]) MB/CK Relative Index 1.00 Normal (applies to non-num svetlana results) [facility] ([facility]) <content>DIAGNOSIS CRITERIA</content>
<content>MMB ng/ml Relative Index (RI)</content>
<content>NON-AMI < or = 5 N/A</content>
<content>REEDER ZONE > 5 < or = 4</content>
<content>AMI > 5 > 4</content>
<content></content> Troponin I Laboratory test result Normal (applies to non-n umeric results) [facility] ([facility]) <content>Troponin I Reference Interval f or Siemens [place] LOCI:</content>
<content></content>
<content>99th Percentile= 0.00-0.045 ng/ml</content>
<content></content>
<content>Risk Stratification:</content>
<content><= 0.10 ng/ml Decreased Risk for Adverse Clinical</content>
<content>Events.</content>
<content>0.10-1.50 ng/ml Increased Risk for Adverse Clinical</content>
<content>Events. Evaluation of additional</content>
<content>criterion and/or repeat testing in 2-6</content>
<content>hours is suggested to rule out myocardial</content>
<content>damage.</content>
<content>>= 1.50 ng/ml Indicative of Myocardial Injury.</content>
<content></content> ID Date Data Source [id number] 05/04/2020 06:25:[address] [facility]) Name Value Range Interpretation Code Description Data Briana rce(s) Supporting Document(s) Lipase [Enzymatic activity/volume] in Serum or Plasma 49 U/L 73-393 Below low normal [facility] ([facility]) ID Date Data Source [id number] 05/04/2020 06:25:[address] [facility]) Name Value Range Interpretation Code Description Data Briana rce(s) Supporting Document(s) Glucose, Fasting 91 mg/dL 70-100 Normal (applies to non-numeric results) [facility] ([facility]) Blood Urea Nitrogen 10 mg/dL 7-18 Normal (applies to non-nume rd results) [facility] ([facility]) Sodium Level 140 meq/L 136-145 Normal (applies to non-numeric res ults) [facility] ([facility]) Creatinine For GFR 0.69 mg/dL 0.55-1.30 Normal (applies to non -numeric results) [facility] ([facility]) Glomerular Filtration Rate Laboratory test result Normal (applies to non- numeric results) [facility] ([facility]) <content>Units are mL/min/1.73 m2</content>
<content></content>
<content>Chronic Kidney Disease Staging per NKF:</content>
<content></content>
<content>Stage I & II GFR >=60 Normal to Mildly Decreased</content>
<content>Stage III GFR 30-59 Moderately Decreased</content>
<content>Stage IV GFR 15-29 Severely Decreased</content>
<content>Stage V GFR <15 Very Little GFR Left</content>
<content>ESRD GFR <15 on SLEDGER</content>
<content></content> Carbon Dioxide Level 25 meq/L 21-32 Normal (applies to non-num svetlana results) [facility]) Chloride Level 109 meq/L 98-107 Above high normal [facility] ([facility]) Potassium Serum 4.0 meq/L 3.5-5.1 Normal (applies to non-numeric results) [facility] ([facility]) Calcium Level 9.3 mg/dL 8.5-10.1 Normal (applies to non-numeric re sults) [facility] ([facility]) Anion Gap 6 meq/L 8-16 Below low normal [facility] ( [facility]) Procedure Vital Signs ID Date Data Source UNK Name Value Range Interpretation Code Description Data Source(s) Body weight 86.297 kg 86.297 kg [facility] ([facility]) [place] body weight 115 [lb_av] 115 [lb_av] [facility]) Body mass index (BMI) [Ratio] 33.7 kg/m2 33.7 k g/m2 [facility] ([facility]) Body weight 190.25 [lb_av] 190.25 [lb_av] [facility] ([facility]) Body height 63 [in_i] 63 [in_i] [facility]) 5'3" Diastolic blood pressure 60 mm[Hg] 60 mm[Hg] [facility]) Systolic blood pressure 110 mm[Hg] 110 mm[Hg] M [facility] ([facility]) Body weight 86.184 kg 86.184 kg [facility] ([facility]) [place] body weight 115 [lb_av] 115 [lb_av] [facility]) Body mass index (BMI) [Ratio] 33.7 kg/m2 33.7 k g/m2 [facility] ([facility]) Body weight 190.00 [lb_av] 190.00 [lb_av] [facility] ([facility]) Body height 63 [in_i] 63 [in_i] [facility] ([facility]) 5'3" Diastolic blood pressure 77 mm[Hg] 77 mm[Hg] [facility] ([facility]) Systolic blood pressure 111 mm[Hg] 111 mm[Hg] [facility] [place] body weight 110 [lb_av] 110 [lb_av] [facility] ([facility]) Oxygen saturation in Arterial blood by Pulse oximetry 98 % 98 % [facility] ([facility]) Body temperature 98.6 [degF] 98.6 [degF] [facility] ([facility]) Respiratory rate 16 /min 16 /min [facility] ( [facility]) Heart rate 73 /min 73 /min [facility] ([facility]) Body mass index (BMI) [Ratio] 32.1 kg/m2 32.1 k g/m2 [facility] ([facility]) Body weight 179.38 [lb_av] 179.38 [lb_av] [facility] ([facility]) Body height 62.7 [in_i] 62.7 [in_i] [facility] ([facility]) 5'2.70" Diastolic blood pressure 88 mm[Hg] 88 mm[Hg] [facility] ([facility]) Systolic blood pressure 120 mm[Hg] 120 mm[Hg] [facility] [facility])
[2020-10-20 19:58] LABS: BASO # 0.1 10^3/uL (0.0-0.2); BASO % 0.3 % (0.0-1.0); EOS # 0.2 10^3/uL (0.0-0.5); EOS % 1.5 % (0.0-3.0); HEMATOCRIT 38.4 % (36.0-47.0); LYMPH # 2.2 10^3/uL (1.5-5.0); LYMPH % 13.9 % (24.0-44.0); MEAN CORPUSCULAR HEMOGLOBIN 27.6 pg (27.0-33.0); MEAN CORPUSCULAR HGB CONC 31.3 g/dl (32.0-36.5); MEAN CORPUSCULAR VOLUME 88.5 fl (80.0-96.0); MONO # 0.8 10^3/uL (0.0-0.8); MONO % 5.1 % (2.0-8.0); NEUTROPHILS # 12.3 10^3/uL (1.5-8.5); NEUTROPHILS % 78.8 % (36.0-66.0); PLATELET COUNT, AUTOMATED 492 10^3/uL (150-450); RED BLOOD COUNT 4.34 10^6/uL (4.00-5.40); WHITE BLOOD COUNT 15.6 10^3/uL (4.0-10.0)
[2020-10-20 20:25] LABS: BLOOD UREA NITROGEN 8 MG/DL (7-18); CALCIUM LEVEL 9.3 MG/DL (8.5-10.1); CARBON DIOXIDE LEVEL 24 MEQ/L (21-32); CHLORIDE LEVEL 107 MEQ/L (98-107); GLOMERULAR FILTRATION RATE > 60.0 (>60); GLUCOSE, FASTING 79 MG/DL (70-100); POTASSIUM SERUM 4.4 MEQ/L (3.5-5.1); SODIUM LEVEL 138 MEQ/L (136-145)
--- NOTE | 2020-10-20 20:33 | REPVR ---
PROCEDURE INFORMATION: Exam: US First Trimester, Transabdominal Exam date and time: 10/20/2020 7:58 PM Age: 30 years old Clinical indication: Lmp or gestational age (in weeks): 07/11/2020; Other: Postive preg test. Has 5 weeks ago; ; Additional info: Positive hcg, recent 5 weeks ago, R/O rpoc TECHNIQUE: Imaging protocol: Real-time transabdominal obstetrical ultrasound of the maternal pelvis and a first trimester , less than 14 weeks 0 days, with image documentation. COMPARISON: No relevant prior studies available. FINDINGS: Gestation: Single gestational sac demonstrated in the uterine fundus. Single fetus demonstrated within the gestational sac with a crown-rump length measuring 78.2 mm. Active motion demonstrated. Embryonic/ heart rate: heart rate is 149 bpm. Placenta: Anterior placenta. Amniotic fluid: Low amniotic fluid volume. BIOMETRY: Gestational age (AUA): Gestational age is 13 weeks 6 days based on crown-rump length measurement in this patient who is 14 weeks 3 days based on LMP of 07/11/2020. Estimated due date (AUA): ZHANNA is 04/21/2021 based on ultrasound measurements. MATERNAL: Uterus: Unremarkable. Cervix: Unremarkable. Right adnexa: Unremarkable. Left adnexa: Unremarkable. Intraperitoneal space: No intraperitoneal free fluid. IMPRESSION: 1. Gestational age is 13 weeks 6 days based on crown-rump length measurement in this patient who is 14 weeks 3 days based on LMP of 07/11/2020. cardiac activity and active motion demonstrated. 2. Low amniotic fluid volume. Electronically signed by: Stef White On 10/20/2020 20:33:49 PM
[2020-10-20 22:07] VITALS: BP 123/68
== END 2020-10-20 22:09 | disposition home or self-care (01) ==
LOC: M ED 16:36
DX: Z32.01 Encounter for pregnancy test, result positive (principal); K21.9 Gastro-esophageal reflux disease without esophagitis; Z87.59 Personal history of other complications of pregnancy, childbirth and the puerperium; Z88.0 Allergy status to penicillin; F17.210 Nicotine dependence, cigarettes, uncomplicated; Z3A.13 13 weeks gestation of pregnancy

== ENCOUNTER → 2020-11-04 | Outpatient (REF) | payer OTHER | LOC: M PLALAB 13:03 | PROVIDERS: ATTEND Obstetrics & Gynecology | DX: Z34.92 Encounter for supervision of normal pregnancy, unspecified, second trimester (principal); Z3A.17 17 weeks gestation of pregnancy; Z53.9 Procedure and treatment not carried out, unspecified reason ==

== ENCOUNTER → 2020-11-07 | Outpatient (REF) | payer OTHER | LOC: M PLALAB 09:28 | PROVIDERS: ATTEND Obstetrics & Gynecology | DX: Z36.89 Encounter for other specified antenatal screening (principal); Z3A.17 17 weeks gestation of pregnancy; Z53.9 Procedure and treatment not carried out, unspecified reason ==

== ENCOUNTER → 2020-11-21 | Outpatient (CLI) | payer OTHER ==
--- NOTE | 2020-11-21 13:59 | REP ---
INDICATION: ANATOMY. COMPARISON: 10/20/2020. TECHNIQUE: Real-time sonographic evaluation of the gravid uterus performed. FINDINGS: Estimated gestational age is18 weeks 3 days, EDC 04/21/2021. Today's measurements indicate appropriate growth. Presentation: Breech Placenta anterior, grade 0, without evidence of placenta previa. heart rate is recorded at 144 beats per minute. Amniotic fluid is subjectively normal. Closed cervical length is measured at 3.3 cm. Biometry chart: BPD: 41 mm, 18 weeks 2 days, 46th percentile. HC: 153 mm, 18 weeks 2 days, 46th percentile AC: 135 mm, 18 weeks 6 days, 61st percentile Femur length: 25 mm, 17 weeks 4 days, 23rd percentile HC to AC ratio: 1.14, normal range 1.07-1.26. Estimated weight: 233g, 38th percentile. anatomy: Cranium: Grossly normal Lateral Ventricles/Choroid Plexus: Grossly normal Posterior Fossa/Cerebellum: Grossly normal Nose/lips/profile: Grossly normal Four chamber heart: Grossly normal Right ventricular outflow tract: Grossly normal Left ventricular outflow tract: Grossly normal Left-sided stomach: Grossly normal Kidneys: Grossly normal Bladder: Grossly normal Cord Insertion: Grossly normal 3 vessel cord: Grossly normal Spine: Not well seen due to position. IMPRESSION: Viable single intrauterine gestation as above. <Electronically signed by Alfred Adam > 11/21/20 [id number]
== END ==
LOC: M WHC 11:34
PROVIDERS: ATTEND Obstetrics & Gynecology
DX: Z34.82 Encounter for supervision of other normal pregnancy, second trimester (principal); Z3A.18 18 weeks gestation of pregnancy

== ENCOUNTER → 2020-12-07 | Outpatient (REF) | payer OTHER ==
[2020-12-07 15:36] LABS: HEMATOCRIT 34.5 % (36.0-47.0); HEMOGLOBIN 10.8 g/dl (12.0-15.5); MEAN CORPUSCULAR HEMOGLOBIN 28.3 pg (27.0-33.0); MEAN CORPUSCULAR HGB CONC 31.3 g/dl (32.0-36.5); MEAN CORPUSCULAR VOLUME 90.3 fl (80.0-96.0); PLATELET COUNT, AUTOMATED 467 10^3/uL (150-450); RED BLOOD COUNT 3.82 10^6/uL (4.00-5.40); WHITE BLOOD COUNT 12.9 10^3/uL (4.0-10.0)
[2020-12-07 18:33] LABS: HEPATITIS C VIRUS ABY INDEX < 0.0 INDEX (<0.8); HIV 1&2 SCREEN CENTAUR NEGATIVE (NEGATIVE)
== END ==
LOC: M PLALAB 14:07
PROVIDERS: ATTEND Obstetrics & Gynecology
DX: Z36.89 Encounter for other specified antenatal screening (principal); Z3A.17 17 weeks gestation of pregnancy

== ENCOUNTER → 2021-01-03 | Outpatient (CLI) | payer OTHER ==
--- NOTE | 2021-01-03 15:04 | REP ---
INDICATION: F/U ANATOMY COMPARISON: 11/21/2020 TECHNIQUE: Transabdominal obstetrical ultrasound with color Doppler evaluation. FINDINGS: Examination demonstrates a single live intrauterine in breech presentation. motion is identified by technologist. Placenta is noted anterior and grade 1 without evidence for placenta previa or abruption. Amniotic fluid volume is normal. Cervix measures 4.3 cm in length and appears closed.. Gestational age by LMP and 1st U/S 25 weeks 1 day with ZHANNA 04/17/2021. Gestational age by current measurements 24 weeks 4 days with ZHANNA 04/21/2021. FHR equals 127 beats per minute. Estimated weight 724 grams (46thpercentile). Anatomical assessment demonstrates normal structures including cranium, choroid plexus, cavum, cerebellum/posterior fossa, facial features, lungs, diaphragm, stomach, cord insertion/three-vessel cord, kidneys/bladder, and extremities. IMPRESSION: Single live intrauterine in breech presentation demonstrating appropriate interval growth. Limited evaluation of the spine again noted due to positioning. In conjunction with prior examination, remainder of the anatomical assessment is complete and normal. <Electronically signed by Brant Shipman > 01/03/21 [id number]
== END ==
LOC: M WHC 13:24
PROVIDERS: ATTEND Obstetrics & Gynecology
DX: Z34.82 Encounter for supervision of other normal pregnancy, second trimester (principal); Z3A.25 25 weeks gestation of pregnancy

== ENCOUNTER 2021-01-23 13:42 | Emergency (ER) | payer OTHER ==
[~2021-01-23] VITALS: Ht 160 cm; Wt 84.1 kg
[2021-01-23] MEDS ORDERED: MACR100C43 PO (15:51)
[2021-01-23 15:58] LABS: CHLAMYDIA DNA AMPLIFICATION NEGATIVE (NEGATIVE); GC DNA AMPLIFICATION NEGATIVE (NEGATIVE)
[2021-01-23 15:59] VITALS: BP 113/61
== END 2021-01-23 16:11 | disposition home or self-care (01) ==
LOC: M ED 13:42
DX: N39.0 Urinary tract infection, site not specified (principal); Z88.0 Allergy status to penicillin; Z87.891 Personal history of nicotine dependence

== ENCOUNTER → 2021-03-30 | Outpatient (CLI) | payer OTHER ==
[~2021-03-30] MED LIST changes: +MACR100C43 PO
[2021-03-30 19:30] LABS: GC DNA AMPLIFICATION NEGATIVE (NEGATIVE)
== END ==
LOC: M PLALAB 14:40
PROVIDERS: ATTEND Advanced Practice Midwife
DX: Z70.8 Other sex counseling (principal)

== ENCOUNTER 2021-04-03 12:49 | Inpatient (IN) | payer OTHER ==
[~2021-04-03] VITALS: Ht 160 cm; Wt 85.5 kg
[2021-04-03] VITALS (16 sets, daily range): BP systolic 94–115; BP diastolic 48–68
[2021-04-03] MEDS ORDERED: HOME MED LIST COMPLETE! XX SCH (13:10)
[2021-04-03] MEDS ORDERED: LACTATED RINGER'S 1000 ML IV STA (13:23)
[2021-04-03] MEDS ORDERED: CARBOPROST TROMETHAMINE 250 MCG/ML AMP IM PRN (13:25)
[2021-04-03] MEDS ORDERED: OXYTOCIN DRIP 30 UNITS in IV 1 EA IV PRN (13:25)
[2021-04-03] MEDS ORDERED: METHYLERGONOVINE MALEATE 0.2 MG/ML VIAL (J2210) IM PRN (13:25)
[2021-04-03] MEDS ORDERED: TRANEXAMIC ACID INJection 1,000 MG in NS 100 ML IV PRN (13:25)
[2021-04-03] MEDS ORDERED: LIDOCAINE 1% MDV 20ML VIAL INFIL PRN (13:25)
--- NOTE | 2021-04-03 13:51 | HPEPDOC ---
Obstetrical History & Physical General Date of Admission Apr 03, 2021 at 13:20 Primary Care Physician: PAM MURPHY CNM History of Present Illness Andria is a 30-year-old female who is a at 38 weeks gestation with an ZHANNA of 04/17/21 based off of her LMP and consistent with an early second trimester ultrasound. She initiated care in her second trimester with [facility]. She has not been consistent with her care and has only had 4 visits. She attempted to have a medical AB and it failed. Her has been complicated by medication use for ETOP, minimal care, and her being a smoker. She reports she started having gushes of clear fluid at 1130 this morning and it has continuously been leaking out. She reports occasional contractions and active movement. She denies vaginal bleeding. She was recently diagnosed with chlamydia on 03/30/21 and reports she took Azithromycin as prescribed. Chief Complaint: Rupture of membranes Information Provided By: Patient Age: 30 : 5 Term: 3 Pre-term: 0 Abortions: 1 Livin Care Care: Limited Care Number of Visits: 4 Dating Final EDC: Apr 17, 2021 Final EDC by: LMP EGA at Admission: 38 Antepartum Course Diagnos(e)s tobacco use in limited care Height (inches): 63 Admission Weight (lbs.): 187 Past Medical History Past Obstetrical History #1: Past Obstetrical History: Primgravida Date of Delivery: Aug 05, 2013 Gestation: 40.3 Type of Delivery: Spontaneous Vaginal Del. Sex of Infant: Female (8 lbs 14 oz.) Complications: No Past Obstetrical History #2: Past Obstetrical History: Multigravida Date of Delivery: Jun 14, 2015 Gestation: 39 Type of Delivery: Spontaneous Vaginal Del. Sex of : Female (7 lbs 2 oz) Complications: No Past Obstetrical History #3: Past Obstetrical History: Multigravida Date of Delivery: May 19, 2018 Gestation: 39 Type of Delivery: Spontaneous Vaginal Del. Sex of Infant: Female (7 lbs 2 oz) Complications: No [employer] History: Spontaneous , History of STD (clamydia and gonnorhea) Past Medical History Medical History Hx of kidney infection Surgical History: Denies/None Family History Significant Family History: Asthma Social History Marital Status: Single Psychosocial History: No pertinent psych hx * Smoker: former Smoker (reports she just quit smoking) Alcohol: Denies Drugs: denies Allergies Coded Allergies: Penicillins (Verified Allergy, Intermediate, hives, 06/27/20) Physical Examination Physical Examination GENERAL: Alert and oriented times three. ABDOMEN: Gravid and non-tender to touch. FETUS: Is vertex (VTX) by sterile vaginal examination (SVE), fetus is vertex (VTX) by Alexis and by bedside ultrasound. Perineum: positive nitrazine LUNGS: Clear to auscultation (CTA). EXTREMITIES: No edema. No clonus. Deep tendon reflexes (DTRs) + 2. Vital Signs/I&O BP: 107/60 HR: 98 Temp: 98.2 RR: 18 Laboratory Data 24H LABS Laboratory Tests 2 04/03/21 13:30: Serology Scanned Report Hepatitis B Testing Urine Culture: No Growth Pertinent Laboratoy Data Blood Type: O+ RBC Antibody Screen: Negative HIV: Negative Hepatitis B: Negative Hepatitis C: Negative Rapid Plasma Reagin: Nonreactive Rubella: Immune Chlamydia/Gonorrhea: Positive (03/30/21) Group B Streptococcus: Unknown Glucose Tolerance Test: 73 Vaginal Examination Dilation: 1cm Effacement: 50% Station: -2 Cervical Consistency: Soft Cervical Position: Anterior Presentation: Cephalic presentation Assessment Heart Rate (FHR): 140 Variability: Moderate Accelerations: Positive Decelerations: None Tocometer Contractions: Yes Frequency: irregular Assessment/Plan Assessment IUP at spontaneous rupture of membranes GBS unknown Category I FHR tracing Plan Admit to L&D for SROM. GBS obtained. Vancomycin to be started per order due to patient's PCN allergy ("really bad hive.") OOB ad suellen. Diet: regular diet now then clear liquid when she becomes more active. Labs and intravenous (IV) per unit protocol. Counseled on augmentation of labor with Cytotec and IV Pitocin. Anesthesia consult per patient's request. Lactated Ringers (LR): Bolus 800 mL prior to epidural, then at 125 mL/hr. Anticipate cervical change and . C-S as appropriate. PAM MURPHY CNM Apr 03, 2021 13:51
[2021-04-03 14:20] LABS: HEMATOCRIT 27.1 % (36.0-47.0); HEMOGLOBIN 8.5 g/dl (12.0-15.5); MEAN CORPUSCULAR HEMOGLOBIN 25.8 pg (27.0-33.0); MEAN CORPUSCULAR HGB CONC 31.4 g/dl (32.0-36.5); MEAN CORPUSCULAR VOLUME 82.1 fl (80.0-96.0); PLATELET COUNT, AUTOMATED 406 10^3/uL (150-450); WHITE BLOOD COUNT 12.2 10^3/uL (4.0-10.0)
[2021-04-03] MEDS: VANCOMYCIN HCL 1,000 MG, VIAL MATE ADAPTER 1 EACH in NS 250 ML IV SCH (14:28)
[2021-04-03] MEDS ORDERED: miSOPROStol 50MCG 1/2 TABLET PO SCH (14:30)
[2021-04-03] MEDS: LR 1,000 ML IV SCH ×2 (15:00→16:19)
--- NOTE | 2021-04-03 15:13 | IPNPDOC ---
Obstetrical Progress Note Date of Service Apr 03, 2021 Subjective Patient has no complaints. Objective Vital Signs Date Time Temp Pulse Resp B/P (MAP) Pulse Ox O2 Delivery O2 Flow Rate FiO2 04/03/21 14:04 98.2 98 14 107/60 (76) Assessment Heart Rate (FHR): 140 Variability: Moderate Decelerations: Prolonged (14 minute ) Tocometer Contractions: Yes Sterile Vaginal Examination Dilation: 1cm Effacement (%): 80% Station: -2 Cervical Consistency: Soft Cervical Position: Anterior Postion/Presentation: Cephalic presentation Assessment and Plan Additional Comments SVE: no cord noted. Intrauterine resuscitation done. FSE placed. Patient counseled on possibility of section if continued decelerations. PAM MURPHY CNM Apr 03, 2021 15:13
[2021-04-03] MEDS ORDERED: OXYTOCIN DRIP 30 UNITS in IV 1 EA IV SCH (20:45)
--- NOTE | 2021-04-03 20:47 | IPNPDOC ---
Obstetrical Progress Note Date of Service Apr 03, 2021 Subjective Patient reports she if feeling her contractions but reports she is coping with them well. Objective Vital Signs Date Time Temp Pulse Resp B/P (MAP) Pulse Ox O2 Delivery O2 Flow Rate FiO2 04/03/21 19:38 98.5 95 102/59 (73) 04/03/21 15:45 15 Assessment Heart Rate (FHR): 130 Variability: Moderate Accelerations: Positive Decelerations: None Heart Rate Tracing: Category I Tocometer Contractions: Yes Frequency: every 2-5 min. Sterile Vaginal Examination Dilation: 2cm Effacement (%): 80% Station: -2 Cervical Consistency: Soft Cervical Position: Anterior Postion/Presentation: Cephalic presentation Assessment and Plan EGA at Admission: 38 Status: Reassuring Group B Streptococcus: Positive Anticipate: Vaginal Delivery Additional Comments Reviewed plan with patient to start IV Pitocin. Anesthesia to be consulted when she desires her epidural. PAM MURPHY CNM Apr 03, 2021 20:47
[2021-04-03] MEDS ORDERED: FENTANYL 2MCG/ML ROPIVACAINE 0.2% IN 0.9% NACL 100ML IVBAG As Ordered ONE (22:31)
[2021-04-03] MEDS ORDERED: LACTATED RINGER'S 1000 ML IV PRN (23:10)
[2021-04-03] MEDS ORDERED: REFRIGERATOR IV KEYS XX PRN (23:10)
[2021-04-03] MEDS ORDERED: ONDANSETRON 4MG/2ML VIAL IV PRN (23:10)
[2021-04-03] MEDS ORDERED: EPIDURAL/PCA KEYS XX PRN (23:10)
[2021-04-03] MEDS ORDERED: NALOXONE INJ 0.4MG/1ML VIAL (J2310 PER 1MG) IV PRN (23:10)
[2021-04-03] MEDS ORDERED: diphenhydrAMINE 50MG/ML VIAL (J1200) IV PRN (23:10)
[2021-04-03] MEDS ORDERED: EPIDURAL COMMENT XX SCH (23:10)
[2021-04-04] VITALS (35 sets, daily range): BP systolic 86–116; BP diastolic 42–61
[2021-04-04] MEDS: LR 1,000 ML IV SCH ×2 (00:03→07:06)
[2021-04-04] MEDS: FENTANYL/ROPIVACAINE/NACL BAG 100 ML EPIDURAL SCH ×2 (00:03→07:15)
[2021-04-04] MEDS: ePHEDrine SULFATE 25 MG/5 ML(5MG/ML) SYRINGE IV PRN ×2 (01:13→06:36)
[2021-04-04] MEDS: VANCOMYCIN HCL 1,000 MG, VIAL MATE ADAPTER 1 EACH in NS 250 ML IV SCH (02:30)
[2021-04-04] MEDS ORDERED: FENTANYL 2MCG/ML ROPIVACAINE 0.2% IN 0.9% NACL 100ML IVBAG As Ordered ONE (07:07)
[2021-04-04] MEDS ORDERED: DOCUSATE SODIUM 100MG CAPSULE PO PRN (09:00)
[2021-04-04] MEDS ORDERED: ACETAMINOPHEN 500 MG TAB PO PRN (09:00)
[2021-04-04] MEDS ORDERED: ACETAMINOPHEN TAB 650MG DOSE (2X325MG) PO PRN (09:00)
[2021-04-04] MEDS ORDERED: ANUSOL HC CREAM 30GM TOP PRN (09:00)
[2021-04-04] MEDS ORDERED: RHOGAM 300 MCG (1500 IU) INJ (J2790) IM SCH (09:00)
[2021-04-04] MEDS ORDERED: MEASLES,MUMPS,RUBELLA VACCINE INJ (MMR-II) (90707) SC SCH (09:00)
[2021-04-04] MEDS ORDERED: IBUPROFEN 600MG TAB PO PRN (09:00)
[2021-04-04] MEDS ORDERED: DIBUCAINE 1% OINTMENT 30GM TOP PRN (09:00)
[2021-04-04] MEDS ORDERED: METHYLERGONOVINE MALEATE 0.2 MG TAB PO PRN (09:00)
--- NOTE | 2021-04-04 09:19 | DNPDOC ---
[facility] Delivery Note Delivery Note DATE OF DELIVERY: 04/04/21 at 0729 PREDELIVERY DIAGNOSIS: 38-1/7 weeks' gestation and SROM. POST DELIVERY DIAGNOSIS: Delivered. PROCEDURE: Spontaneous vaginal delivery. MEMORANDUM STATEMENT CLERK: Pam Joaquin CNM, JASON ANESTHESIA: epidural. ESTIMATED BLOOD LOSS: 200 mL. FINDINGS: 6 pounds 5 ounces; 2870 grams; female , Score 8/9, nuchal cord times 2 loose, minimal care. DELIVERY SUMMARY: Andria is a 30-year-old female who is now a who presented to L&D with SROM of clear fluid on 04/03/21 at 1130. Her labor was augmented with Cytotec and IV Pitocin. Andria requested an epidural for pain management. She progressed to fully dilated at 0729. She pushed to a living female in the KAMILAH position with restitution to ROT. Nuchal cord x2 noted and reduced. The anterior shoulder delivered with ease and the corpus immediately followed. The baby was placed on the maternal abdomen active and crying with stimulation. The cord was clamped x2 and cut by the FOB. The placenta delivered spontaneously and intact at 0733. Uterine hemostasis was achieved via rapid infusion of IV Pitocin and fundal massage. The vagina, cervix, and perineum was inspected and found to be intact. Mom plans to formula feed. Both mom and baby are in stable condition. All counts of instruments and sponges are correct. PAM JOAQUIN CNM Apr 04, 2021 09:19
[2021-04-04] MEDS: PRENATAL VITAMINS CHEWABLE TABLET PO SCH (10:29)
[2021-04-04] MEDS: IBUPROFEN 800 MG TAB PO PRN (15:05)
[2021-04-05 05:48] VITALS: BP 130/74
[2021-04-05] MEDS: IBUPROFEN 800 MG TAB PO PRN (06:11)
[2021-04-05] MEDS: OMEPRAZOLE 20 MG CAP PO SCH ×2 (07:34→20:42)
[2021-04-05] MEDS: PRENATAL VITAMINS CHEWABLE TABLET PO SCH (07:34)
[2021-04-05] MEDS: KETOROLAC 30 MG/ML 1ML VIAL IV SCH ×3 (07:35→19:01)
--- NOTE | 2021-04-05 08:31 | IPNPDOC ---
Progress Note Date of Service: Apr 05, 2021 Day#: 1 Progress Note SUBJECT: Status post . Patient is having right upper quadrant/epigastric di scomfort. She has a history of cholelithiasis and GERD. she has been ambulating, voiding spontaneously without issue and tolerating regular diet. Lochia decreasing/minimal. Pain is well-controlled. Denies headache, visual changes, shortness breath or chest pain. OBJECTIVE: VITAL SIGNS: Within normal limits, afebrile. Alert and oriented times three. Abdomen: Fundus firm at U-2. Soft, NTTP. ASSESSMENT: Status post uncomplicated spontaneous vaginal delivery. Vitals within normal limits, afebrile, hemodynamically stable with no evidence of infection. PLAN: Discharge to home tomorrow. Will order labs and imaging if her symptoms do not improve with Toradol and omeprazole Routine instructions/precautions reviewed. Routine PP visit in 6 weeks in clinic. VS, I&O, 24H, Fishbone Vital Signs/I&O Vital Signs Date Time Temp Pulse Resp B/P (MAP) Pulse Ox O2 Delivery O2 Flow Rate FiO2 04/05/21 05:48 99.2 70 15 130/74 (92) 99 Room Air I&O- Last 24 Hours up to 6 AM 04/05/21 06:00 Intake Total 1382.8 ml Output Total 1975 ml Balance -592.2 ml Laboratory Data Microbiology Microbiology 04/03/21 Group B Streptococcus Screen ([facility]), Received Pending VALERIA SULLIVAN DO Apr 05, 2021 08:31
[2021-04-05 18:00] VITALS: BP 124/74
[2021-04-06] MEDS: KETOROLAC 30 MG/ML 1ML VIAL IV SCH (01:16)
[2021-04-06 06:00] VITALS: BP 122/60
[2021-04-06] MEDS: OMEPRAZOLE 20 MG CAP PO SCH (08:32)
[2021-04-06] MEDS: PRENATAL VITAMINS CHEWABLE TABLET PO SCH (08:32)
== END 2021-04-06 12:47 | disposition home or self-care (01) | DRG 560 ==
LOC: M LDO 12:49 → M LDI 13:20 → M OBS 04-04 09:56
PROVIDERS: ADMIT Advanced Practice Midwife; ATTEND Advanced Practice Midwife
PROC: 10E0XZZ Delivery of Products of Conception, External Approach (ICD-10-PCS; principal; 2021-04-04)
DX: O99.334 Smoking (tobacco) complicating childbirth (principal); F17.200 Nicotine dependence, unspecified, uncomplicated; Z3A.38 38 weeks gestation of pregnancy; O69.81X0 Labor and delivery complicated by cord around neck, without compression, not applicable or unspecified; Z37.0 Single live birth

== ENCOUNTER 2021-05-20 02:14 | Emergency (ER) | payer OTHER ==
[2021-05-20] MEDS ORDERED: NS 1,000 ML IV ONE (02:40)
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
[2021-05-20 07:45] VITALS: BP 117/70
== END 2021-05-20 08:21 | disposition home or self-care (01) ==
LOC: M ED 02:14
DX: F10.929 Alcohol use, unspecified with intoxication, unspecified (principal)

== ENCOUNTER 2021-05-27 04:00 | Emergency (ER) | payer OTHER ==
[~2021-05-27] VITALS: Ht 160 cm; Wt 88.6 kg
[2021-05-27] MEDS ORDERED: ACETAMINOPHEN TAB 650MG DOSE (2X325MG) PO ONE (04:35)
[2021-05-27 05:45] VITALS: BP 139/78
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
== END 2021-05-27 06:37 | disposition home or self-care (01) ==
LOC: M ED 04:00
DX: S01.512A Laceration without foreign body of oral cavity, initial encounter (principal); S01.01XA Laceration without foreign body of scalp, initial encounter; Y04.8XXA Assault by other bodily force, initial encounter; Y07.9 Unspecified perpetrator of maltreatment and neglect; Y92.018 Other place in single-family (private) house as the place of occurrence of the external cause; K21.9 Gastro-esophageal reflux disease without esophagitis; Z88.0 Allergy status to penicillin; F17.210 Nicotine dependence, cigarettes, uncomplicated

== ENCOUNTER 2021-06-06 08:18 | Emergency (ER) | payer OTHER ==
[~2021-06-06] VITALS: Ht 160 cm; Wt 84.1 kg
[2021-06-06] MEDS ORDERED: OMEP-221 (08:39)
[2021-06-06] MEDS ORDERED: GI COCKTAIL 50ML BTL(HYOSCYAMINE/MAALOX/LIDOCAINE VISCOUS)(1:3:1) PO ONE (09:05)
[2021-06-06 09:34] LABS: BASO # 0.1 10^3/uL (0.0-0.2); BASO % 0.5 % (0.0-1.0); EOS # 0.2 10^3/uL (0.0-0.5); EOS % 1.7 % (0.0-3.0); HEMATOCRIT 36.9 % (36.0-47.0); HEMOGLOBIN 11.3 g/dl (12.0-15.5); LYMPH # 1.4 10^3/uL (1.5-5.0); LYMPH % 14.6 % (24.0-44.0); MEAN CORPUSCULAR HEMOGLOBIN 26.2 pg (27.0-33.0); MEAN CORPUSCULAR HGB CONC 30.6 g/dl (32.0-36.5); MEAN CORPUSCULAR VOLUME 85.4 fl (80.0-96.0); MONO # 0.6 10^3/uL (0.0-0.8); MONO % 5.7 % (2.0-8.0); NEUTROPHILS # 7.5 10^3/uL (1.5-8.5); NEUTROPHILS % 77.1 % (36.0-66.0); PLATELET COUNT, AUTOMATED 473 10^3/uL (150-450); RED BLOOD COUNT 4.32 10^6/uL (4.00-5.40); WHITE BLOOD COUNT 9.7 10^3/uL (4.0-10.0)
[2021-06-06] MEDS ORDERED: KETOROLAC 30 MG/ML 1ML VIAL IV ONE (09:45)
[2021-06-06] MEDS ORDERED: SUCRALFATE SUSP 1GM/10ML UD PO ONE (09:45)
[2021-06-06 10:02] LABS: BLOOD UREA NITROGEN 14 MG/DL (7-18); CARBON DIOXIDE LEVEL 25 MEQ/L (21-32); CHLORIDE LEVEL 109 MEQ/L (98-107); GLOMERULAR FILTRATION RATE > 60.0 (>60); GLUCOSE, FASTING 83 MG/DL (70-100); POTASSIUM SERUM 4.5 MEQ/L (3.5-5.1); SODIUM LEVEL 139 MEQ/L (136-145)
[2021-06-06 10:03] LABS: ALBUMIN 3.5 GM/DL (3.2-5.2); ALT/SGPT 38 U/L (12-78); BILIRUBIN,DIRECT < 0.1 MG/DL (0.0-0.2); BILIRUBIN,TOTAL 0.2 MG/DL (0.2-1.0); CALCIUM LEVEL 9.1 MG/DL (8.5-10.1); LIPASE 62 U/L (73-393); TOTAL PROTEIN 7.1 GM/DL (6.4-8.2)
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
[2021-06-06] MEDS ORDERED: CARA1TAB6 PO (12:05)
[2021-06-06] MEDS ORDERED: PROT1TAB2 PO (12:05)
[2021-06-06 12:33] VITALS: BP 135/62
== END 2021-06-06 12:40 | disposition home or self-care (01) ==
LOC: M ED 08:18
DX: K29.70 Gastritis, unspecified, without bleeding (principal); K21.9 Gastro-esophageal reflux disease without esophagitis; Z88.0 Allergy status to penicillin; Z87.891 Personal history of nicotine dependence; Z79.899 Other long term (current) drug therapy
CPT/HCPCS: 71046; 80048; 80076; 83690; 84702; 85025; 96374; 99283; J1885

== ENCOUNTER → 2021-07-06 | Outpatient (REF) | payer OTHER ==
[~2021-07-06] MED LIST changes: +CARA1TAB6 PO; +PROT1TAB2 PO
== END ==
LOC: M LAB REF 19:01
PROVIDERS: ATTEND Pediatrics
DX: J06.9 Acute upper respiratory infection, unspecified (principal)

== ENCOUNTER 2021-07-17 03:16 | Emergency (ER) | payer OTHER ==
[~2021-07-17] VITALS: Ht 160 cm; Wt 84.1 kg
[2021-07-17 03:17] VITALS: BP 120/79
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
--- OUTSIDE RECORDS SUMMARY | 2021-07-17 03:25 | CCD ---
Continuity of Care Document (CCD) Created on: 07/06/2021 Andria Dorsey External Reference #: [id number] : [id number] Sex: Female Author Author Andria DINH [place] Organization Unknown Address [address] [place] [address] [address] [place] [address] Phone [phone] Care Team Providers Care Marriage And Family Teacher Name Role Phone Magnolia Meeks D.O. AUTM [phone] Problems Description No Information Available Social History [...] F O2 % BldC Oximetry 98 % [place] Body Weight 110 lb 09/08/2019 10:16am BP Systolic 120 mmHg BP Diastolic 88 mmHg Height 62.7 inches 5'2.70" Weight 179.38 lb BMI (Body Mass Index) 32.1 kg/m2 Heart Rate 73 /min Respiratory Rate 16 /min Body Temperature 98.6 F O2 % BldC Oximetry 98 % [place] Body Weight 110 lb Results Description No [...]
--- OUTSIDE RECORDS SUMMARY | 2021-07-17 03:26 | CCD ---
Author Author [facility] Organization [facility] Address Unknown Phone Unavailable Care Team Providers Care Partition Notcher Name Role Phone Collette Joaquin Unavailable PROBLEMS Type Condition ICD9-CM Code CCL63-PN Code Onset Dates Condition S tatus W/U Status Risk SNOMED Code Notes Problem Obesity complicating in second trimester O99.212 Active confirmed 415847898421 Problem Obesity E66.9 Active confirmed 996796693 Problem Supervision of other normal Z34.80 Ac tive confirm [id number] ALLERGIES Allergen (clinical drug ingredient) Drug/Non Drug Allergy do cumented on EMR Reaction Allergy Type Onset Date Status penicillin V Penicillin Hives Drug Allergy Active ENCOUNTERS from 1992 to 2021-06-21 Encounter Location Date Provider Diagnosis [facility] [address] [facility] [phone] [place] [address] Jun, Collette Joaquin Encounter for routin e follow- up Z39.2 and Encounter for oral contraception initial prescription Z30.011 IMMUNIZATIONS No Information SOCIAL HISTORY Tobacco Use: Social History Observation Description Date Details (start date - stop date) Current Smoker Sex Assigned At : Social History Observation Description Sex Assigned At Unknown Domestic Violence: Question Answer Notes Status: No history of abuse Alcohol Screening: Question Answer Notes Did you have a drink containing alcohol in the past year? No Points 0 Interpretation Negative Tobacco Use: Question Answer Notes Are you a: current smoker Patient counseled on the dangers of tobacco use and urged to quit: 12/07/2020 How many cigarettes a day do you smoke? 11-20 Are you interested in quitting? Ready to quit Counseled the patient on tobacco use, cessation provided 03/2021 REASON FOR REFERRAL No Information VITAL SIGNS Weight 185.6 lbs Jun, Weight-kg 84.19 kg Jun, Height 63 in Jun, BMI 32.87 kg/m2 Jun, Blood pressure systolic 114 mm Hg Jun, Blood pressure diastolic 72 mm Hg Jun, MEDICATIONS Medication SIG (Take, Route, Frequency, Duration) Notes Start Da te End Date Status Lexy Santana [place]-3 DHA - 1 tablet Orally Once a day Not-Taking Nicotine Step 1 21 MG/24HR 1 patch to skin Transdermal Once a da y for 45 days December, Not-Taking Protonix 40 MG 1 tablet Orally Once a day Active Sucralfate 1 GM 1 tablet on an empty stomach Orally Four times a day Active Azithromycin 500 MG 2 tablets Orally Once for 1 days 2020 Not-Taking Sprintec 28 0.25-35 MG-MCG 1 tablet Orally Once a day for 28 day (s) Jun, Active Omeprazole 40 MG 1 capsule 30 minutes before morning meal Orally On a day Active PROCEDURES from 1992 to 2021-06-21 Procedure Date Ordered Result Body Site URINE TEST 2021-06-08 N/A RESULTS No Results REASON FOR VISIT 7wk PP MEDICAL (GENERAL) HISTORY Type Description Date Medical History Gallstones Medical History Kidney stones Medical History GERD Surgical History none Hospitalization History childbirth Hospitalization History kidney infection 2020 Goals Section No Information Health Concerns No Information MEDICAL EQUIPMENT No Information MENTAL STATUS No Information FUNCTIONAL STATUS No Information ASSESSMENTS Encounter Date Diagnosis Assessment Notes Treatment Notes Treatm ent Clinical Notes Jun, Encounter for routine follow-up (ICD- 10 - Z39.2) Jun, Encounter for oral contracep tion initial prescription (ICD-10 - Z30.011) PLAN OF TREATMENT Medication Medication Name Sig Start Date Stop Date Sprintec 28 0.25-35 MG-MCG 1 tablet Orally Once a day for 28 day(s) Jun, Next Appt August Reason:Annual Provider Name:Deja Mccollum, 2021-07-05 0 9:00:00 AM, [address] [place] [address], , [place], [address], Provider Name:Deja Mccollum 2021-08-01 1 1:20:00 AM, [address] [facility], , [place], [address], Provider Name:Collette Joaquin, 2021-08-16 02:00:00 PM, [address] [facility], , [place], [address], Follow Up: Insurance Providers Payer Name Payer Address Payer Phone Insured Name Patient Relati onship to Insured Coverage Start Date Coverage End Date FORMERLY [facility] [employer] [facility] [address] [facility] [id number] 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
--- OUTSIDE RECORDS SUMMARY | 2021-07-17 03:26 | CCD ---
Author Author [facility] Organization [facility] Address Unknown Phone Unavailable Support Name Relationship Address Phone REDLBSTR Next Of Kin [address] [place] [address] [place] [address] ARBYSWTN Next Of Kin [address] [place] [address] [place] [address] Un[place] [address] [facility] Next Of Kin [address] [place] [address] [place] [address] SUSHANT CHRISTIE Next Of Kin [address] [place] [address] KIMBERLY ARCHER Next Of Kin [address] [place] [address] UE Next Of Kin Unknown Unavailable ST Next Of Kin Unknown Unavailable JONATHAN CALLE Next Of Kin [address] [place] [address] JONATHAN JACKSON Next Of Kin [address] [place] [address] RONA PETERSON Next Of Kin [address] [place] [address] BHARATI CALLE Next Of Kin [address] [place] [address] MANUEL, (LEGAL GUARDIAN) ARPIT Next Of Kin [address] [place] [address] [employer] SUITES Next Of Kin 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 Name Role Phone LETTIERE, A IRVING PA Unavailable Unavailable LETTIERE, A IRVING PA Unavailable Unavailable LETTIERE, A IRVING PA Unavailable Unavailable LETTIERE, A IRVING PA Unavailable Unavailable LETTIERE, A IRVING PA Unavailable Unavailable LETTIERE, A IRVING PA Unavailable Unavailable LETTIERE, A IRVING PA Unavailable Unavailable LETTIERE, A IRVING PA Unavailable Unavailable LETTIERE, A IRVING PA Unavailable Unavailable LETTIERE, A IRVING PA Unavailable Unavailable LETTIERE, A IRVING PA Unavailable Unavailable LETTIERE, A IRVING PA Unavailable Unavailable LETTIERE, A IRVING PA Unavailable Unavailable LETTIERE, A IRVING PA Unavailable Unavailable LETTIERE, A IRVING PA Unavailable Unavailable LETTIERE, A IRVING PA Unavailable Unavailable LETTIERE, A IRVING PA Unavailable Unavailable LETTIERE, A IRVING PA Unavailable Unavailable LETTIERE, A IRVING PA Unavailable Unavailable LETTIERE, A IRVING PA Unavailable Unavailable LETTIERE, A IRVING PA Unavailable Unavailable LETTIERE, A IRVING PA Unavailable Unavailable LETTIERE, A IRVING PA Unavailable Unavailable LETTIERE, A IRVING PA Unavailable Unavailable LETTIERE, A IRVING PA Unavailable Unavailable LETTIERE, A IRVING PA Unavailable Unavailable LETTIERE, A IRVING PA Unavailable Unavailable LETTIERE, A IRVING PA Unavailable Unavailable LETTIERE, A IRVING PA Unavailable Unavailable LETTIERE, A IRVING PA Unavailable Unavailable LETTIERE, A IRVING PA Unavailable Unavailable Feola, T Maggy PA Unavailable Unavailable Feola, T Maggy PA Unavailable Unavailable Feola, T Maggy PA Unavailable Unavailable Feola, T Maggy PA Unavailable Unavailable Feola, T Maggy PA Unavailable Unavailable Feola, T Maggy PA Unavailable Unavailable Feola, T Maggy PA Unavailable Unavailable Feola, T Maggy PA Unavailable Unavailable Feola, T Maggy PA Unavailable Unavailable Feola, T Maggy PA Unavailable Unavailable Feola, T Maggy PA Unavailable Unavailable Feola, T Maggy PA Unavailable Unavailable Feola, T Maggy PA Unavailable Unavailable Feola, T Maggy PA Unavailable Unavailable Feola, T Maggy PA Unavailable Unavailable Feola, T Maggy PA Unavailable Unavailable Feola, T Maggy PA Unavailable Unavailable Feola, T Maggy PA Unavailable Unavailable Feola, T Maggy PA Unavailable Unavailable Feola, T Maggy PA Unavailable Unavailable Feola, T Maggy PA Unavailable Unavailable Feola, T Maggy PA Unavailable Unavailable Feola, T Maggy PA Unavailable Unavailable Feola, T Maggy PA Unavailable Unavailable Feola, T Maggy PA Unavailable Unavailable Feola, T Maggy PA Unavailable Unavailable Feola, T Maggy PA Unavailable Unavailable Feola, T Maggy PA Unavailable Unavailable Feola, T Maggy PA Unavailable Unavailable Feola, T Maggy PA Unavailable Unavailable Feola, T Maggy PA Unavailable Unavailable Feola, T Maggy PA Unavailable Unavailable Feola, T Maggy PA Unavailable Unavailable Feola, T Maggy PA Unavailable Unavailable Feola, T Maggy PA Unavailable Unavailable Feola, T Maggy PA Unavailable Unavailable Feola, T Maggy PA Unavailable Unavailable Feola, T Maggy PA Unavailable Unavailable Feola, T Maggy PA Unavailable Unavailable Feola, T Maggy PA Unavailable Unavailable Feola, T Maggy PA Unavailable Unavailable Daria Drake JR, MD Unavailable [...] Unavailable Daria Drake JR, MD Unavailable Unavailable Vidal JR, J Bautista MD Unavailable Unavailable Vidal JR, J Bautista MD Unavailable Unavailable Vidal JR, J Bautista MD Unavailable Unavailable Vidal JR, J Bautista MD Unavailable Unavailable Vidal JR, J Bautista MD Unavailable Unavailable Vidal JR, J Bautista MD Unavailable Unavailable Vidal JR, J Bautista MD Unavailable Unavailable Vidal JR, J Bautista MD Unavailable Unavailable Vidal JR, J Bautista MD Unavailable Unavailable Vidal JR, J Bautista MD Unavailable Unavailable Vidal JR, J Bautista MD Unavailable Unavailable Vidal JR, J Bautista MD Unavailable Unavailable Vidal JR, J Bautista MD Unavailable Unavailable Vidal JR, J Bautista MD Unavailable Unavailable Vidal JR, J Bautista MD Unavailable Unavailable Vidal JR, J Bautista MD Unavailable Unavailable Vidal JR, J Bautista MD Unavailable Unavailable Vidal JR, J Bautista MD Unavailable Unavailable Vidal JR, J Bautista MD Unavailable Unavailable Vidal JR, J Bautista MD Unavailable Unavailable Vidal JR, J Bautista MD Unavailable Unavailable Vidal JR, J Bautista MD Unavailable Unavailable Vidal JR, J Bautista MD Unavailable Unavailable Vidal JR, J Bautista MD Unavailable Unavailable Vidal JR, J Bautista MD Unavailable Unavailable Vidal JR, J Bautista MD Unavailable Unavailable Vidal JR, J Bautista MD Unavailable Unavailable Vidal JR, J Bautista MD Unavailable Unavailable Vidal JR, J Bautista MD Unavailable Unavailable Vidal JR, J Bautista MD Unavailable Unavailable Vidal JR, J Bautista MD Unavailable Unavailable Vidal JR, J Bautista MD Unavailable Unavailable Re-disclosure Warning The records that [...] is protected by Article 27-F of the [facility] Public Health law. If you continue you may have access to information: Regarding HIV / AIDS; Provided by facilities licensed or operated by the [facility] Office of Mental Health; or Provided by the [facility] Office for People With Developmental Disabilities. If such information is present, then the following [facility] mandated warning applies: This information has been [...] law may result in a fine or detention sentence or both. A general authorization for the release of medical or other information is NOT sufficient authorization for further disc losure. Family History Family Member Name Family Member Gender Family Member Status Date o f Status Description Data Source(s) Unknown Female Problem MEDENT ([facility]) Encounters Encounter Providers Location Date Indications Data Source(s ) Outpatient Attender: IRVING huddleston 06/09/2021 05:40:00 PM EDT MEDENT ([facility]) ( ESTOB) enter Est OB [address] [place] [address] 06/08/2021 12:00:00 AM EDT eCW1 ([facility]) Unknown [address] [facility] [address] 05/15/2021 12:00:00 AM EDT eCW1 ([facility]) Unknown [address] [facility] [address] 03/31/2021 12:00:00 AM EDT eCW1 ([facility]) Unknown [address] [facility] [address] 03/31/2021 12:00:00 AM EDT eCW1 ([facility]) Unknown [address] [facility] [address] 03/29/2021 12:00:00 AM EDT eCW1 ([facility]) ( ESTOB) enter Est OB [address] [place] [address] 02/16/2021 12:00:00 AM EDT eCW1 ([facility]) Outpatient Attender: Maggy CHEN 021 11:11:20 AM EDT - 01/19/2021 11:41:10 AM EDT DocuTap ([facility] ) ( ESTOB) [facility] Est OB [address] [place] [address] 01/04/2021 12:00:00 AM EDT eCW1 ([facility]) Outpatient Attender: IRVING huddleston 12/20/2020 01:45:00 PM EDT MEDENT ([facility] ( ESTOB) [facility] Est OB [address] [place] [address] 12/07/2020 12:00:00 AM EDT eCW1 ([facility]) ( ESTOB) [facility] OB [address] [place] [address] 11/07/2020 12:00:00 AM EST eCW1 ([facility]) Outpatient Attender: Bautista Wong/Chapito/Eder/Ekta bates 05/18/2020 01:00:00 PM EDT MEDENT ([facility]) Immunizations Vaccine Date Status Description Data Source(s) COVID-19 VACCINE Moderna 01/24/2021 12:00:00 AM EDT completed [facility] Vaccine Series Complete: NOThis Data was Submitted to [facility] Via [facility]. TB Skin test is not vaccine. 12/20/2020 01:40:00 PM EDT completed MEDENT ([facility]) Medications Medication Brand Name Start Date Product Form Dose Route Admi nistrative Instructions Pharmacy Instructions Status Indications Reaction Description Data Source(s) No Active Medications 06/09/2021 12:00:00 AM EDT completed MEDENT ([facility]) Sprintec 28 0.25-35 MG-MCG Sprintec 28 0.25-35 MG-MCG 2020 12:00:00 AM EDT 1.0 {tablet} active Sprintec 28 0.25-35 MG-MCG eCW1 ([facility]) Azithromycin 500 MG Oral Tablet Azithromycin 500 MG 03/31/2021 1 2:00:00 AM EDT 2.0 {tablets} active Azithromyc in 500 MG eCW1 ([facility]) Azithromycin 500 MG Oral Tablet Azithromycin 500 MG 03/31/2021 1 2:00:00 AM EDT 2.0 {tablets} active Azithromyc in 500 MG eCW1 ([facility]) Azithromycin 500 MG Oral Tablet Azithromycin 500 MG 03/31/2021 1 2:00:00 AM EDT 2.0 {tablets} active Azithromyc in 500 MG eCW1 ([facility]) Azithromycin 500 MG Oral Tablet Azithromycin 500 MG 03/31/2021 1 2:00:00 AM EDT 2.0 {tablets} suspended Azithrom ycin 500 MG eCW1 ([facility]) 24 HR Nicotine 0.875 MG/HR Transdermal Patch Nicotine Step 1 21 MG/24HR Nicotine Step 1 21 MG/24HR 01/04/2021 12:00:00 AM EDT 1.0 {patch_to_skin} suspended eCW1 ([facility]) 24 HR Nicotine 0.875 MG/HR Transdermal Patch Nicotine Step 1 21 MG/24HR Nicotine Step 1 21 MG/24HR 01/04/2021 12:00:00 AM EDT 1.0 {patch_to_skin} suspended Nicotine Step 1 21 MG/24HR eCW1 ([facility]) 24 HR Nicotine 0.875 MG/HR Transdermal Patch Nicotine Step 1 21 MG/24HR Nicotine Step 1 21 MG/24HR 01/04/2021 12:00:00 AM EDT 1.0 {patch_to_skin} suspended Nicotine Step 1 21 MG/24HR eCW1 ([facility]) 24 HR Nicotine 0.875 MG/HR Transdermal Patch Nicotine Step 1 21 MG/24HR Nicotine Step 1 21 MG/24HR 01/04/2021 12:00:00 AM EDT 1.0 {patch_to_skin} active Nicotine Step 1 21 MG/24HR eCW1 ([facility]) 24 HR Nicotine 0.875 MG/HR Transdermal Patch Nicotine Step 1 21 MG/24HR Nicotine Step 1 21 MG/24HR 01/04/2021 12:00:00 AM EDT 1.0 {patch_to_skin} suspended Nicotine Step 1 21 MG/24HR eCW1 ([facility]) 24 HR Nicotine 0.875 MG/HR Transdermal Patch Nicotine Step 1 21 MG/24HR Nicotine Step 1 21 MG/24HR 01/04/2021 12:00:00 AM EDT 1.0 {patch_to_skin} suspended Nicotine Step 1 21 MG/24HR eCW1 ([facility]) 24 HR Nicotine 0.875 MG/HR Transdermal Patch Nicotine Step 1 21 MG/24HR Nicotine Step 1 21 MG/24HR 01/04/2021 12:00:00 AM EDT 1.0 {patch_to_skin} suspended Nicotine Step 1 21 MG/24HR eCW1 ([facility]) Sucralfate 1000 MG Oral Tablet [Carafate] Carafate 07/07/2020 1 2:00:00 AM EST ORAL active MEDENT ([facility], ) Omeprazole 40 MG Delayed Release Oral Capsule Omeprazole 05/18/2020 12:00:00 AM EDT ORAL active MEDENT ([facility], ) No Active Medications 05/18/2020 12:00:00 AM EDT completed MEDENT ([facility], ) Insurance Providers Payer name Policy type / Coverage type Policy ID Covered democrat ID Covered democrat's relationship to bridges Policy Bridges Plan Information [facility]ITY [facility] [id number] SP [id number] [facility] [id number] SP [id number] [facility] [id number] SP [id number] [facility] [id number] SP [id number] [employer]. [id number] Self [id number] MEDICAID [id number] SP [id number] BCBS [facility] JOSHUA [id number] SP [id number] [facility] MEDICAID [facility] [id number] S [id number] UN COMMUNITY PLAN MCDO [id number] SP [id number] UN COMMUNITY PLAN MCDO [id number] SP [id number] [facility] [id number] [facility] [id number] SELF PAY UNAVAILABLE SP UNAVAILA BLE UNHC COMMUNITY PLAN [facility] [id number] SP [id number] [facility](MCAID) O [id number] S [id number] [facility] Community Plan Commercial [id number] Self [id number] [facility] Medigap Part B [id number] Self [id number] Medicaid [place] Medicaid [id number] Self [id number] Problems, Conditions, and Diagnoses Code Display Name Description Problem Type Effective Dates Data Source(s) E66.9 Obesity Obesity Problem 11/07/2020 12:00:00 AM ES T eCW1 ([facility]) O99.212 Maternal obesity complicatin g , childbirth and the puerperium, antepartum Obesity complicating in second trimester Problem 11/07/2020 12:00:00 AM EST eCW1 ([facility]) Z34.80 care Supervision of other normal P roblem 09/09/2020 12:00:00 AM EST eCW1 ([facility]) Surgeries/Procedures Procedure Description Date Indications Data Source(s) OFFICE OUTPATIENT VISIT 15 MINUTES 06/09/2021 12:00:00 AM EDT MEDENT ([facility]) URINE TEST 06/08/2021 12:00:00 AM EDT eCW1 ([facility]) INITIAL PREVENTIVE MEDICINE NEW PT AGE 18-39YRS 2020 12:00:00 AM EDT MEDENT ([facility]) Results ID Date Data Source [id number] 07/06/2021 04:20:00 PM EDT [facility] Name Value Range Interpretation Code Description Data Briana rce(s) Supporting Document(s) Respiratory pathogens identified [Type] in Nasopharynx by Probe and target amplification method SARS-CoV-2 (COVID 19) [facility] This lab was ordered by [facility] a nd reported by [facility]. ID Date Data Source [id number] 06/09/2021 12:00:00 AM EDT [facility] Name Value Range Interpretation Code Description Data Briana rce(s) Supporting Document(s) SARS-CoV2 Rapid Antigen Negative [facility] This lab was ordered by [facility] and reported by [facility]. ID Date Data Source [id number] 01/19/2021 12:00:00 AM EDT [facility] Name Value Range Interpretation Code Description Data Briana rce(s) Supporting Document(s) SARS-CoV-2 PCR Nucleic Acid Negative [facility] This lab was ordered by [facility] eliana and reported by [facility] Osei Barraza. ID Date Data Source [id number] 10/20/2020 08:14:00 PM EST MEDENT ([facility]) Name Value Range Interpretation Code Description Data Briana rce(s) Supporting Document(s) Laboratory test finding (navigational concept) Laboratory test result MEDENT ([facility], [facility]) Laboratory test finding (navigational concept) Laboratory test result MEDENT ([facility]) Laboratory test finding (navigational concept) 6.0 units 5.0-9.0 MEDENT ([facility], [facility]) Laboratory test finding (navigational concept) 1.030 1.002-1.035 MEDENT ([facility], [facility]) Laboratory test finding (navigational concept) Laboratory test result MEDENT ([facility], [facility]) Laboratory test finding (navigational concept) Laboratory test result MEDENT ([facility], [facility]) Laboratory test finding (navigational concept) 0.2 mg/dL 0.0-2.0 MED[facility] ([facility], [facility]) Laboratory test finding (navigational concept) Laboratory test result MED[facility] ([facility], [facility]) Laboratory test finding (navigational concept) Laboratory test result MEDENT ([facility], [facility]) Laboratory test finding (navigational concept) Laboratory test result MEDENT ([facility], [facility]) Laboratory test finding (navigational concept) Laboratory test result MEDENT ([facility], [facility]) Laboratory test finding (navigational concept) Laboratory test result MEDENT ([facility]) Laboratory test finding (navigational concept) 3 /HPF 0-3 MEDENT ([facility]) Laboratory test finding (navigational concept) 4 /HPF 0-3 MEDENT ([facility]) Laboratory test finding (navigational concept) Laboratory test result MEDENT ([facility]) Laboratory test finding (navigational concept) 3 /HPF 0-6 MEDENT ([facility]) Laboratory test finding (navigational concept) 0 /LPF 0-1 MEDENT ([facility]) Laboratory test finding (navigational concept) Laboratory test result MEDENT ([facility]) ID Date Data Source [id number] 10/20/2020 07:40:00 PM EST MEDENT ([facility]) Name Value Range Interpretation Code Description Data Briana rce(s) Supporting Document(s) Glucose, Fasting 79 mg/dL 70-100 MEDENT ([facility], [facility]) Blood Urea Nitrogen 8 mg/dL 7-18 MEDENT ([facility]) Creatinine For GFR 0.60 mg/dL 0.55-1.30 MEDENT ([facility]) Glomerular Filtration Rate Laboratory test result MEDENT ([facility]) <content>Units are mL/min/1.73 m2</content>
<content></content>
<content>Chronic Kidney Disease Staging per NKF:</content>
<content></content>
<content>Stage I & II GFR >=60 Normal to Mildly Decreased</content>
<content>Stage III GFR 30- 59 Moderately Decreased</content>
<content>Stage IV GFR 15-29 Severely Decreased</content>
<content>Stage V GFR <15 Very Little GFR Left</content>
<content>ESRD GFR <15 on BEVEL FACE STONER AND POLISHER</content>
<content></content> Sodium Level 138 meq/L 136-145 MEDENT ([facility]) Potassium Serum 4.4 meq/L 3.5-5.1 [facility] Chloride Level 107 meq/L 98-107 MEDENT ([facility]) Carbon Dioxide Level 24 meq/L 21-32 [facility] ([facility] Anion Gap 7 meq/L 8-16 MED[facility] ([facility]) Calcium Level 9.3 mg/dL 8.5-10.1 MEDENT ([facility]) ID Date Data Source [id number] 10/20/2020 07:40:00 PM EST MEDENT ([facility]) Name Value Range Interpretation Code Description Data Briana rce(s) Supporting Document(s) White Blood Count 15.6 10 4.0-10.0 MED[facility] Red Blood Count 4.34 10 4.00-5.40 MEDENT ([facility], [facility]) Hematocrit 38.4 % 36.0-47.0 [facility] ([facility]) Hemoglobin 12.0 g/dL 12.0-15.5 [facility] Mean Corpuscular Hemoglobin 27.6 pg 27.0-33.0 [facility] ([facility]) Mean Corpuscular Volume 88.5 fl 80.0-96.0 M EDENT ([facility]) Mean Corpuscular HGB Conc 31.3 g/dL 32.0-36.5 MEDENT ([facility]) Red Cell Distribution Width 14.0 % 11.5-14.5 MEDENT ([facility]) Platelet Count, Automated 492 10 150-450 MEDENT ([facility]) Neutrophils % 78.8 % 36.0-66.0 MEDENT ([facility]) Lymph % 13.9 % 24.0-44.0 MEDENT ([facility], [facility]) Eos % 1.5 % 0.0-3.0 MEDENT ([facility], [facility]) George % 5.1 % 2.0-8.0 MEDENT ([facility], [facility]) Immature Granulocyte % 0.4 % 0-3.0 MEDENT ([facility]) Baso % 0.3 % 0.0-1.0 MEDENT ([facility], [facility]) Nucleated Red Blood Cell % 0.0 % 0-0 MED ENT ([facility], [facility]) Neutrophils # 12.3 10 1.5-8.5 MEDENT ([facility], [facility]) Lymph # 2.2 10 1.5-5.0 MEDENT ([facility], [facility]) Eos # 0.2 10 0.0-0.5 MEDENT ([facility], [facility]) George # 0.8 10 0.0-0.8 MEDENT ([facility], [facility]) Baso # 0.1 10 0.0-0.2 MEDENT ([facility]) ID Date Data Source [id number] 10/20/2020 05:25:00 PM EST MEDENT ([facility]) Name Value Range Interpretation Code Description Data Briana rce(s) Supporting Document(s) Laboratory test finding (navigational concept) Laboratory test result MEDENT ([facility]) <content>QUANTITATIVE RESULT QU ALITATIVE INTERPRETATION</content>
<content> </content>
<content><5.0 IU/L NEGATIVE</content>
<content>5.0 - 25.0 IU/L INDETERMINATE</content>
<content>>25.0 IU/L POSITIVE</content>
<content></content> ID Date Data Source [id number] 10/20/2020 04:36:00 PM EST MEDENT ([facility]) Name Value Range Interpretation Code Description Data Briana rce(s) Supporting Document(s) Choriogonadotropin.beta subunit [Moles/volume] in Serum or P lasma [id number] MIU/ML MEDENT ([facility], [facility]) GESTATIONAL AGE APPROXIMATE HCG RANGE (MIU/ML) - [...] monitoring the treatment of cancer patients. Siemens Waterflow methodology. ID Date Data Source [id number] 08/20/2020 07:36:00 PM EST MEDENT ([facility]) Name Value Range Interpretation Code Description Data Briana rce(s) Supporting Document(s) GC Dna Amplification Laboratory test result Above high nor mal [facility] ([facility]) Chlamydia Dna Amplification Laboratory test result Normal (applies to non- numeric results) [facility] ([facility]) A negative test result does not exclude the possibility of infection because test results may be affected by improper specimen collection, technical error, specimen mix-up, concurrent antibiotic therapy, or the number of organisms in the specimen which may be below the sensitivity of the test. Laboratory test finding (navigational concept) Laboratory test r esult Normal (applies to non-numeric results) [facility] ([facility]) A negative test result does not exclude the possibility of infection because test results may be affected by improper specimen collection, technical error, sample mix-up, or because the number of organisms in the sample is below the limit of detection of the test. ID Date Data Source [id number] 08/20/2020 07:36:00 PM EST [facility] ([facility]) Name Value Range Interpretation Code Description Data [facility] Supporting Document(s) Wet Prep Laboratory test result Normal (applies to non-n umeric results) [facility] ([facility]) MANY SHORT RODS PRESENT MODERATE CLUE CELLS PRESENT FEW WBC ID Date Data Source [id number] 08/20/2020 07:20:00 PM [facility]) Name Value Range Interpretation Code Description Data [facility](s) Supporting Document(s) Hepatitis C virus Ab [Units/volume] in Serum by Immunoassay 0.1 INDEX Normal (applies to non-numeric results) [facility]) Negative Not infected with HCV, unless recent infection is suspected or other evidence exists to indicate HCV infection. Choriogonadotropin.beta subunit [Moles/volume] in Serum or Plasm a 2995 MIU/ML Normal (applies to non-numeric results) [facility] ([facility]) GESTATIONAL AGE APPROXIMATE HCG RANGE (MIU/ML) - [...] monitoring the treatment of cancer patients. Siemens Tubett methodology. Reagin Ab [Presence] in Serum by RPR Laboratory test result Normal (applies to non-numeric results) [facility] ([facility]) Hepatitis B virus surface Ab [Presence] in Serum by Im munoassay Laboratory test result Normal (applies to non-numeric results) [facility] Hepatitis B virus surface Ag [Presence] in Serum or Pl asma by Immunoassay Laboratory test result Normal (applies to non-numeric results) [facility] ([facility]) HIV 1+2 Ab [Presence] in Serum Laboratory test result Normal (applies to non- numeric results) [facility]) <content>This assay was performed utiliz ing a chemiluminescent</content>
<content>principle technique for the simultaneous qualitative</content>
<content>detection of HIV-1 p24 antigen & antibodies to HIV-1</content>
<content>(including group O) & HIV-2 using the Siemens Centaur XP</content>
<content>system.</content>
<content>The estimated 95% confidence interval for sensitivity of</content>
<content>this antigen/antibody combination assay for HIV-1&2</content>
<content>antibodies is 99.7-100% and HIV p24 antigen is 89.4-99.9%.</content>
<content>The estimated 95% confidence interval for specificity of</content>
<content>this antigen/antibody combination in low risk populations is</content>
<content>99.6-99.8%.</content>
<content></content> ID Date Data Source [id number] 08/20/2020 06:45:00 PM EST [facility] ([facility]) Name Value Range Interpretation Code Description Data Briana rce(s) Supporting Document(s) Reflex Urine Culture Laboratory test result Norm al (applies to non-numeric results) [facility]) <content>FULL REPORT IN LAB NOTES (eCW a [...] FOR ESBL</content>
<content></content> ID Date Data Source [id number] 08/20/2020 06:45:00 PM EST [facility] ([facility]) Name Value Range Interpretation Code Description Data Briana rce(s) Supporting Document(s) Appearance, Urine RFX Laboratory test result Above high no rmal [facility] ([facility]) PH,Urine RFX 5.0 units 5.0-9.0 Normal (applies to non-numeric res ults) [facility] ([facility]) Color, Urine RFX Laboratory test result Normal ( applies to non-numeric results) [facility] ([facility]) Glucose, Urine (Ua) Auto RFX Laboratory test result Normal (applies to non- numeric results) [facility] ([facility]) Protein, Urine Auto RFX Laboratory test result N ormal (applies to non-numeric results) [facility] ([facility]) Specific [place] Ur Auto RFX 1.025 1.002-1.035 Nor mal (applies to non-numeric results) [facility] ([facility]) Nitrite, Urine Auto RFX Laboratory test result N ormal (applies to non-numeric results) [facility] ([facility]) Bilirubin, Urine Auto RFX Laboratory test result Normal (applies to non- numeric results) [facility] ([facility]) Urobilinogen, Urine Auto RFX 2.0 mg/dL 0.0-2.0 Above high normal [facility] ([facility]) Ketone, Urine Auto RFX Laboratory test result No rmal (applies to non-numeric results) [facility] ([facility]) Leukocyte Esterase Ur Auto RFX Laboratory test result Abov e high normal [facility] ([facility]) Blood, Urine Blood RFX Laboratory test result No rmal (applies to non-numeric results) [facility]) WBC, Urine Auto RFX 16 /HPF 0-3 Above high normal [facility] ([facility]) Squam Epithelial Cell Ur Aurfx 13 /HPF 0-6 N ormal (applies to non-numeric results) [facility] ([facility]) Bacteria, Urine Auto RFX Laboratory test result Above high normal [facility]) RBC, Urine Auto RFX 2 /HPF 0-3 Normal (applies to non-nume rd results) [facility]) Mucus, Urine RFX Laboratory test result Normal ( applies to non-numeric results) [facility] ([facility]) Hyaline Cast, Urine Auto RFX 0 /LPF 0-1 Normal (appl ies to non-numeric results) [facility] ([facility]) ID Date Data Source [id number] 07/07/2020 11:14:00 AM EST [facility] ([facility], ) Name Value Range Interpretation Code Description Data Briana rce(s) Supporting Document(s) Surgical pathology study Laboratory test result [facility] ) FINAL DIAGNOSIS Esophagus, distal, biopsy: Columnar mucosa with foveolar hyperplasia and mild inflammation. No intestinal metaplasia is identified. No squamous mucosa seen. 07/08/2020 - 1444 CLINICAL DIAGNOSIS GERD 07/08/2020714 GROSS DIAGNOSIS Received in formalin labeled "biopsy distal esophagus" and consists of a fragment of tissue, 0.1 x 0.1 x 0.1 cm. All in one. -OA 07/08/2020714 Signed TORRES MIRANDA MD 07/08/2020 1446 Procedure Social History Code Duration Value Status Description Data Source(s ) Smoking 06/21/2021 12:00:00 AM EDT Current Smoker completed Curre nt Smoker eCW1 ([facility]) Smoking 04/03/2021 12:00:00 AM EDT Current Smoker completed Curre nt Smoker eCW1 ([facility]) Smoking 03/27/2021 12:00:00 AM EDT Current Smoker completed Curre nt Smoker eCW1 ([facility]) Smoking 03/27/2021 12:00:00 AM EDT Current Smoker completed Curre nt Smoker eCW1 ([facility]) Smoking 03/27/2021 12:00:00 AM EDT Current Smoker completed Curre nt Smoker eCW1 ([facility]) Smoking 02/16/2021 12:00:00 AM EDT Current Smoker completed Curre nt Smoker eCW1 ([facility]) Smoking 01/04/2021 12:00:00 AM EDT Current Smoker completed Curre nt Smoker eCW1 ([facility]) Smoking 12/07/2020 12:00:00 AM EDT Current Smoker completed Curre nt Smoker eCW1 ([facility]) Smoking 11/07/2020 12:00:00 AM EST Current Smoker completed Curre nt Smoker eCW1 ([facility]) Vital Signs ID Date Data Source UNK Name Value Range Interpretation Code Description Data Source(s) Respiratory rate 18 /min 18 /min [facility] ( [facility]) Body height 62.7 [in_i] 62.7 [in_i] [facility] ([facility]) 5'2.70" Heart rate 64 /min 64 /min [facility] ([facility]) Oxygen saturation in Arterial blood by Pulse oximetry 98 % 98 % [facility] ([facility]) [place] body weight 110 [lb_av] 110 [lb_av] [facility] ([facility]) Body temperature 99.9 [degF] 99.9 [degF] [facility] Systolic blood pressure 106 mm[Hg] 106 mm[Hg] [facility] ([facility]) Diastolic blood pressure 74 mm[Hg] 74 mm[Hg] [facility]) Heart rate 100 /min 100 /min [facility]) Respiratory rate 16 /min 16 /min [facility] ( [facility]) Oxygen saturation in Arterial blood by Pulse oximetry 98 % 98 % [facility]) Body temperature 98.6 [degF] 98.6 [degF] [facility] ([facility]) Body weight 185.00 [lb_av] 185.00 [lb_av] [facility] ([facility]) Body height 63 [in_i] 63 [in_i] [facility] 5'3" Body mass index (BMI) [Ratio] 32.8 kg/m2 32.8 k g/m2 [facility]) Body weight 185.6 [lb_av] 185.6 [lb_av] eCW1 ([facility]) Body weight 84.19 kg 84.19 kg eCW1 ([facility]) Body height 63 [in_i] 63 [in_i] eCW1 ([facility]) Body mass index (BMI) [Ratio] 32.87 kg/m2 32.87 kg/m2 eCW1 ([facility]) Systolic blood pressure 114 mm[Hg] 114 mm[Hg] e CW1 ([facility]) Diastolic blood pressure 72 mm[Hg] 72 mm[Hg] eCW1 ([facility]) Body weight 185 [lb_av] 185 [lb_av] eCW1 ([facility]) Body weight 83.91 kg 83.91 kg eCW1 ([facility]) Body height 63 [in_i] 63 [in_i] eCW1 ([facility]) Body mass index (BMI) [Ratio] 32.771 kg/m2 32.7 71 kg/m2 W1 ([facility]) Systolic blood pressure 108 mm[Hg] 108 mm[Hg] e CW1 ([facility]) Diastolic blood pressure 68 mm[Hg] 68 mm[Hg] eCW1 ([facility]) Body weight 185.4 [lb_av] 185.4 [lb_av] eCW1 ([facility]) Body height 63 [in_i] 63 [in_i] eCW1 ([facility]) Body mass index (BMI) [Ratio] 32.842 kg/m2 32.8 42 kg/m2 eCW1 ([facility]) Systolic blood pressure 110 mm[Hg] 110 mm[Hg] e CW1 ([facility]) Diastolic blood pressure 70 mm[Hg] 70 mm[Hg] eCW1 ([facility]) Systolic blood pressure 110 mm[Hg] 110 mm[Hg] [facility] ([facility]) Diastolic blood pressure 76 mm[Hg] 76 mm[Hg] [facility] ([facility]) Heart rate 88 /min 88 /min [facility] ([facility]) Respiratory rate 14 /min 14 /min [facility] ( [facility]) Oxygen saturation in Arterial blood by Pulse oximetry 99 % 99 % [facility] ([facility]) Body temperature 97.3 [degF] 97.3 [degF] [facility] ([facility]) Body weight 180.00 [lb_av] 180.00 [lb_av] [facility] ([facility]) Body height 63 [in_i] 63 [in_i] [facility] ([facility]) 5'3" Body mass index (BMI) [Ratio] 31.9 kg/m2 31.9 k g/m2 [facility] ([facility]) Diastolic blood pressure 66 mm[Hg] 66 mm[Hg] eCW1 ([facility]) Body weight 185.2 [lb_av] 185.2 [lb_av] eCW1 ([facility]) Body height 63 [in_i] 63 [in_i] eCW1 ([facility]) Body mass index (BMI) [Ratio] 32.807 kg/m2 32.8 07 kg/m2 eCW1 ([facility]) Systolic blood pressure 110 mm[Hg] 110 mm[Hg] e CW1 ([facility]) Body weight 185.6 [lb_av] 185.6 [lb_av] eCW1 ([facility] hospital) Body weight 84.19 kg 84.19 kg eCW1 ([facility]) Body height 63 [in_i] 63 [in_i] eCW1 ([facility]) Body mass index (BMI) [Ratio] 32.878 kg/m2 32.8 78 kg/m2 eCW1 ([facility]) Systolic blood pressure 104 mm[Hg] 104 mm[Hg] e CW1 ([facility]) Diastolic blood pressure 70 mm[Hg] 70 mm[Hg] eCW1 ([facility]) Systolic blood pressure 110 mm[Hg] 110 mm[Hg] [facility] ([facility], ) Diastolic blood pressure 60 mm[Hg] 60 mm[Hg] [facility] ([facility], ) Body height 63 [in_i] 63 [in_i] [facility] 5'3" Body weight 190.25 [lb_av] 190.25 [lb_av] [facility] ([facility]) Body mass index (BMI) [Ratio] 33.7 kg/m2 33.7 k g/m2 [facility] ([facility]) [place] body weight 115 [lb_av] 115 [lb_av] [facility] ([facility]) Body weight 86.297 kg 86.297 kg [facility] ([facility]) Systolic blood pressure 111 mm[Hg] 111 mm[Hg] [facility] ([facility]) Diastolic blood pressure 77 mm[Hg] 77 mm[Hg] [facility], ) Body height 63 [in_i] 63 [in_i] [facility] ([facility]) 5'3" Body weight 190.00 [lb_av] 190.00 [lb_av] [facility] ([facility]) Body mass index (BMI) [Ratio] 33.7 kg/m2 33.7 k g/m2 [facility] ([facility] ) [place] body weight 115 [lb_av] 115 [lb_av] [facility] ([facility], ) Body weight 86.184 kg 86.184 kg ADRIANO ([facility], ) Patient Treatment Plan of Care Planned Activity Planned Date Details Description Data Source (s) Sprintec 28 0.25-35 MG-MCG 06/08/2021 12:00:00 AM EDT eCW1 ([facility]) Azithromycin 500 MG Oral Tablet 03/31/2021 12:00:00 AM EDT eCW1 ([facility]) Azithromycin 500 MG Oral Tablet 03/31/2021 12:00:00 AM EDT eCW1 ([facility]) Azithromycin 500 MG Oral Tablet 03/31/2021 12:00:00 AM EDT eCW1 ([facility]) 24 HR Nicotine 0.875 MG/HR Transdermal Patch 01/04/2021 12:00:00 AM EDT eCW1 ([facility])
--- OUTSIDE RECORDS SUMMARY | 2021-07-17 03:26 | CCD | Continuity of Care Document ---
Author Author Andria CLAYTON Organization Unknown Address [address] [place] [address] Phone [phone] Problems Description No Information Available Social History Type Date Description Comments Sex Unknown ETOH Use Occasionally consumes alcohol Tobacco Use Start: Unknown End: Unknown Patient is a former smoker quit december 2020 Tobacco Use Start: Unknown Patient Currently Vapes 5% Allergies, Adverse Reactions, Alerts Active Allergies Criticality Reaction | Severity Comments Date Penicillin Unable to assess criticality 06/03/2018 Medications Active Medications SIG Qnty Indications Ordering Provide r Date Omeprazole Unknown Sucralfate Unknown Protonix Unknown History Medications No Active Medications Unknown 04/2021 - 06/09/2021 Immunizations CPT Code Status Date Vaccine Reaction Lot # [id number] Given 12/20/2020 PPD- TB Intradermal Test Res ults read on 12/22/20. Results read as 0mm induration. NEGATIVE. [id number] [id number] Given 06/03/2018 PPD- TB Intradermal Test NEG 0mm of induration, read by Yanna CHEN. [id number] Vital Signs Date Vital Result Comment 06/09/2021 6:15pm BP Systolic 106 mmHg BP Diastolic 74 mmHg Heart Rate 100 /min Respiratory Rate 16 /min O2 % BldC Oximetry 98 % Body Temperature 98.6 F Weight 185.00 lb Height 63 inches 5'3" BMI (Body Mass Index) 32.8 kg/m2 Pain Level 7 12/20/2020 1:37pm BP Systolic 110 mmHg BP Diastolic 76 mmHg Heart Rate 88 /min Respiratory Rate 14 /min O2 % BldC Oximetry 99 % Body Temperature 97.3 F Weight 180.00 lb Height 63 inches 5'3" BMI (Body Mass Index) 31.9 kg/m2 Pain Level 5 6 weeks khalida n in back Results Description No Information Available Procedures Date Code Description Status 06/09/2021 02897 Office/Outpatient Established Lo w MDM 20-29 Min Completed 12/20/2020 39589 Preventive Visit New 18-39 Yrs C ompleted Medical Devices Description No Information Available Encounters Type Date Location Provider Dx Diagnosis Office Visit 06/09/2021 5:40p Main Office APRIL Ryan J02 .9 Acute pharyngitis, unspecified J06.9 Acute upper respiratory infe ction, unspecified Z20.828 Contact w and exposure to ot h viral communicable diseases Office Visit 12/20/2020 1:45p Main Office APRIL Ryan Z11 .1 Encounter for screening for respiratory tuberculosis Z02.1 Encounter for pre-employment examination Assessments Date Code Description Provider 06/09/2021 J02.9 Acute pharyngitis, unspecified M APRIL Reagan 06/09/2021 J06.9 Acute upper respiratory infectio n, unspecified APRIL yRan 06/09/2021 Z20.828 Contact with and (lou spected) exposure to other viral communicable diseases APRIL Ryan 12/20/2020 Z11.1 Encounter for screening for resp iratory tuberculosis APRIL Ryan 12/20/2020 Z02.1 Encounter for pre-employment exa mination APRIL Ryan Plan of Treatment No Information Available Functional Status Description No Information Available Mental Status Description No Information Available Referrals Description No Information Available
--- OUTSIDE RECORDS SUMMARY | 2021-07-17 03:26 | CCD | Continuity of Care Document ---
Author Author Andria CLAYTON Organization Unknown Address [address] [place] [address] Phone [phone] Problems Description No Information Available Social History [...] Code Status Date Vaccine Reaction Lot # [id number] Given 12/20/2020 PPD- TB Intradermal Test Res ults read on 12/22/20. Results read as 0mm induration. NEGATIVE. [id number] Given 06/03/2018 PPD- TB Intradermal Test NEG 0mm of induration, read by Yanna CHEN. [id number] Vital Signs Date Vital Result Comment 06/09/2021 [...] Available Procedures Date Code Description Status 06/09/2021 62418 Office/Outpatient Established Lo w MDM 20-29 Min Completed 12/20/2020 36355 Preventive Visit New 18-39 Yrs C ompleted [...] Acute upper respiratory infectio n, unspecified APRIL Ryan 06/09/2021 Z20.828 Contact with and (lou spected) [...]
--- OUTSIDE RECORDS SUMMARY | 2021-07-17 03:26 | CCD ---
Author Author [facility] Organization [facility] Address Unknown Phone Unavailable Care Team Providers Care Physician [facility] Name Role Phone Altagracia Benitez Unavailable PROBLEMS Type Condition ICD9-CM Code KIC17-HL Code Onset Dates Condition S tatus W/U Status Risk SNOMED Code Notes Problem Obesity complicating in second trimester O99.212 Active confirmed 959839685930 Problem Obesity E66.9 Active confirmed 107701631 Problem Supervision of other normal Z34.80 Ac tive confirm [id number] ALLERGIES Allergen (clinical drug ingredient) Drug/Non Drug Allergy do cumented on EMR Reaction Allergy Type Onset Date Status Penicillin penicillin Hives Non Drug Allergy Active ENCOUNTERS from 1992 to 2021-05-23 Encounter Location Date Provider Diagnosis [facility] [phone] [place] [address] May, Altagracia Benitez IMMUNIZATIONS No Information SOCIAL HISTORY Tobacco Use: Social History Observation Description Date Details (start date - stop date) Current Smoker Sex Assigned At : Social History Observation Description Sex Assigned At Unknown Domestic Violence: Question Answer Notes Status: No history of abuse Tobacco Use: Question Answer Notes Are you a: current smoker Patient counseled on the dangers of tobacco use and urged to quit: 12/07/2020 How many cigarettes a day do you smoke? 11-20 Are you interested in quitting? Ready to quit Counseled the patient on tobacco use, cessation provided 03/2021 REASON FOR REFERRAL No Information VITAL SIGNS No information MEDICATIONS Medication SIG (Take, Route, Frequency, Duration) Notes Start Da te End Date Status Nicotine Step 1 21 MG/24HR 1 patch to skin Transdermal Once a da y for 45 days December, Not-Taking Flnandini Gerardomies [place]-3 DHA - 1 tablet Orally Once a day Active Azithromycin 500 MG 2 tablets Orally Once for 1 days 2020 Active PROCEDURES No Information RESULTS No Results REASON FOR VISIT SURGERY * MEDICAL (GENERAL) HISTORY Type Description Date Medical History Gallstones Medical History Kidney stones Medical History GERD Surgical History none Hospitalization History childbirth Hospitalization History kidney infection 2020 Goals Section No Information Health Concerns No Information MEDICAL EQUIPMENT No Information MENTAL STATUS No Information FUNCTIONAL STATUS No Information ASSESSMENTS No Information PLAN OF TREATMENT Medication Medication Name Sig Start Date Stop Date Azithromycin 500 MG 2 tablets Orally Once for 1 days Mar, Next Appt Details Provider Name:Collette Joaquin, 2021-05-31 10:20:00 AM, [address] [place] [address], , [place], [address], Provider Name:Deja Mccollum, 2021-06-21 1 2:00:00 AM, [address] [place] [address], , [place], [address], Provider Name:Deja Boudreauxn, 2021-07-05 0 7:30:00 AM, [address] [place] [address], , [place], [address], Provider Name:Deja Mccollum, 2021-08-01 1 1:20:00 AM, [address] [place] [address], , [place], [address], Insurance Providers Payer Name Payer Address Payer Phone Insured Name Patient Relati onship to Insured Coverage Start Date Coverage End Date [facility] [address] [facility] [address] 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
--- NOTE | 2021-07-17 04:23 | REPVR ---
PROCEDURE INFORMATION: Exam: XR Chest Exam date and time: 07/17/2021 3:47 AM Age: 30 years old Clinical indication: Pain; Angina pectoris; Additional info: Chest pain TECHNIQUE: Imaging protocol: XR of the chest. Views: 2 views. COMPARISON: CR Chest, 2 view PA, Lat 06/06/2021 10:14 AM FINDINGS: Lungs: Unremarkable. No consolidation. Pleural spaces: Unremarkable. No pleural effusion. No pneumothorax. Heart/Mediastinum: Unremarkable. No cardiomegaly. Bones/joints: Unremarkable. IMPRESSION: No acute findings. Electronically signed by: Arsenio Hdz On 07/17/2021 04:22:03 AM
[2021-07-17 04:48] LABS: BLOOD UREA NITROGEN 11 MG/DL (7-18); CALCIUM LEVEL 9.6 MG/DL (8.5-10.1); CARBON DIOXIDE LEVEL 23 MEQ/L (21-32); CHLORIDE LEVEL 109 MEQ/L (98-107); CK-MB VALUE MASS 1.7 NG/ML (<3.6); CPK CREATINE PHOSPHOKINASE 170 U/L (26-192); GLOMERULAR FILTRATION RATE > 60.0 (>60); GLUCOSE, FASTING 92 MG/DL (70-100); POTASSIUM SERUM 4.2 MEQ/L (3.5-5.1); SODIUM LEVEL 141 MEQ/L (136-145); TROPONIN I < 0.02 NG/ML (< 0.10)
--- OUTSIDE RECORDS SUMMARY | 2021-07-17 06:24 | CCD ---
Author Author [facility] Organization [facility] Address Unknown Phone Unavailable Support Name Relationship Address Phone REDLBSTR Next Of Kin [address] [place] [address] [place] [address] ARBYSWTN Next Of Kin [address] [place] [address] [place] [address] Un[place] [address] [facility] Next Of Kin [address] [place] [address] [place] [address] SUSHANT CHRISTIE Next Of Kin [address] [place] [address] KIMBERLY ARCHER Next Of Kin [address] [place] [address] UE Next Of Kin Unknown Unavailable ST Next Of Kin Unknown Unavailable JONATHAN CALLE Next Of Kin [address] [place] [address] JONATHAN JACKSON Next Of Kin [address] [place] [address] RONA PETERSON Next Of Kin [address] [place] [address] BHARATI CALLE Next Of Kin [address] [place] [address] MANUEL, (LEGAL GUARDIAN) ARPIT Next Of Kin [address] [place] [address] [employer]ITES [facility] [place] [address] FAMILY DOLLAR Next Of Kin [address] [place] [address] GREG JACKSON Next Of Kin [address] [place] [address] ESTHERBASSAM COY Next Of Kin [address] [place] [address] DWIGHT SHIRLEY Next Of Kin [address] [place] [address] Care Team Providers Care Ladle Liner Helper Name Role Phone LETTIERE, A IRVING PA [...] Feola, T Maggy PA Unavailable Unavailable Daria rDake JR, MD Unavailable Unavailable Daria Drake JR, [...] is protected by Article 27-F of the [facility] Public Health law. If you continue you may have access to information: Regarding HIV / AIDS; Provided by facilities licensed or operated by the [facility] Office of Mental Health; or Provided by the [facility] Office for People With Developmental Disabilities. If such information is present, then the following [facility] mandated warning applies: This information has been [...] law may result in a fine or shelter sentence or both. A general authorization for the release of medical or other information is NOT sufficient authorization for further disc losure. Family History Family Member Name Family Member Gender Family Member Status Date o f Status Description Data Source(s) Unknown Female Problem MEDENT ([facility]) Encounters Encounter Providers Location Date Indications Data Source(s ) Outpatient Attender: IRVING huddleston 06/09/2021 05:40:00 PM EDT MEDENT ([facility]) ( ESTOB) enter Est OB [address] [place] [address] 06/08/2021 12:00:00 AM EDT eCW1 ([facility]) Unknown [address] [facility] [address] 05/15/2021 12:00:00 AM EDT eCW1 ([facility]) Unknown [address] [facility] [address] 03/31/2021 12:00:00 AM EDT eCW1 ([facility]) Unknown [address] [facility] [address] 03/31/2021 12:00:00 AM EDT eCW1 ([facility]) Unknown [address] [facility] [address] 03/29/2021 12:00:00 AM EDT eCW1 ([facility]) ( ESTOB) enter Est OB [address] [place] [address] 02/16/2021 12:00:00 AM EDT eCW1 ([facility]) Outpatient Attender: Maggy CHEN 021 11:11:20 AM EDT - 01/19/2021 11:41:10 AM EDT DocuTap ([facility] ) ( ESTOB) [facility] Est OB [address] [place] [address] 01/04/2021 12:00:00 AM EDT eCW1 ([facility]) Outpatient Attender: IRVING huddleston 12/20/2020 01:45:00 PM EDT MEDENT ([facility] ( ESTOB) [facility] Est OB [address] [place] [address] 12/07/2020 12:00:00 AM EDT eCW1 ([facility]) ( ESTOB) [facility] OB [address] [place] [address] 11/07/2020 12:00:00 AM EST eCW1 ([facility]) Outpatient Attender: Bautista Wong/Chapito/Eder/Ekta bates 05/18/2020 01:00:00 PM EDT MEDENT ([facility]) Immunizations Vaccine Date Status Description Data Source(s) COVID-19 VACCINE Moderna 01/24/2021 12:00:00 AM EDT completed [facility] Vaccine Series Complete: NOThis Data was Submitted to [facility] Via [facility]. TB Skin test is not vaccine. 12/20/2020 01:40:00 PM EDT completed MEDENT ([facility]) Medications Medication Brand Name Start Date Product Form Dose Route Admi nistrative Instructions Pharmacy Instructions Status Indications Reaction Description Data Source(s) No Active Medications 06/09/2021 12:00:00 AM EDT completed MEDENT ([facility]) Sprintec 28 0.25-35 MG-MCG Sprintec 28 0.25-35 MG-MCG 2020 12:00:00 AM EDT 1.0 {tablet} active Sprintec 28 0.25-35 MG-MCG eCW1 ([facility]) Azithromycin 500 MG Oral Tablet Azithromycin 500 MG 03/31/2021 1 2:00:00 AM EDT 2.0 {tablets} active Azithromyc in 500 MG eCW1 ([facility]) Azithromycin 500 MG Oral Tablet Azithromycin 500 MG 03/31/2021 1 2:00:00 AM EDT 2.0 {tablets} active Azithromyc in 500 MG eCW1 ([facility]) Azithromycin 500 MG Oral Tablet Azithromycin 500 MG 03/31/2021 1 2:00:00 AM EDT 2.0 {tablets} active Azithromyc in 500 MG eCW1 ([facility]) Azithromycin 500 MG Oral Tablet Azithromycin 500 MG 03/31/2021 1 2:00:00 AM EDT 2.0 {tablets} suspended Azithrom ycin 500 MG eCW1 ([facility]) 24 HR Nicotine 0.875 MG/HR Transdermal Patch Nicotine Step 1 21 MG/24HR Nicotine Step 1 21 MG/24HR 01/04/2021 12:00:00 AM EDT 1.0 {patch_to_skin} suspended eCW1 ([facility]) 24 HR Nicotine 0.875 MG/HR Transdermal Patch Nicotine Step 1 21 MG/24HR Nicotine Step 1 21 MG/24HR 01/04/2021 12:00:00 AM EDT 1.0 {patch_to_skin} suspended Nicotine Step 1 21 MG/24HR eCW1 ([facility]) 24 HR Nicotine 0.875 MG/HR Transdermal Patch Nicotine Step 1 21 MG/24HR Nicotine Step 1 21 MG/24HR 01/04/2021 12:00:00 AM EDT 1.0 {patch_to_skin} suspended Nicotine Step 1 21 MG/24HR eCW1 ([facility]) 24 HR Nicotine 0.875 MG/HR Transdermal Patch Nicotine Step 1 21 MG/24HR Nicotine Step 1 21 MG/24HR 01/04/2021 12:00:00 AM EDT 1.0 {patch_to_skin} active Nicotine Step 1 21 MG/24HR eCW1 ([facility]) 24 HR Nicotine 0.875 MG/HR Transdermal Patch Nicotine Step 1 21 MG/24HR Nicotine Step 1 21 MG/24HR 01/04/2021 12:00:00 AM EDT 1.0 {patch_to_skin} suspended Nicotine Step 1 21 MG/24HR eCW1 ([facility]) 24 HR Nicotine 0.875 MG/HR Transdermal Patch Nicotine Step 1 21 MG/24HR Nicotine Step 1 21 MG/24HR 01/04/2021 12:00:00 AM EDT 1.0 {patch_to_skin} suspended Nicotine Step 1 21 MG/24HR eCW1 ([facility]) 24 HR Nicotine 0.875 MG/HR Transdermal Patch Nicotine Step 1 21 MG/24HR Nicotine Step 1 21 MG/24HR 01/04/2021 12:00:00 AM EDT 1.0 {patch_to_skin} suspended Nicotine Step 1 21 MG/24HR eCW1 ([facility]) Sucralfate 1000 MG Oral Tablet [Carafate] Carafate 07/07/2020 1 2:00:00 AM EST ORAL active MEDENT ([facility], ) Omeprazole 40 MG Delayed Release Oral Capsule Omeprazole 05/18/2020 12:00:00 AM EDT ORAL active MEDENT ([facility], ) No Active Medications 05/18/2020 12:00:00 AM EDT completed MEDENT ([facility], ) Insurance Providers Payer name Policy type / Coverage type Policy ID Covered republican ID Covered republican's relationship to bridges Policy Bridges Plan Information [facility] [id number] SP [id number] [facility] [id number] SP [id number] [facility] [id number] SP [id number] [facility] [id number] SP [id number] [facility] [employer] [id number] Self [id number] MEDICAID [id number] SP [id number] BCBS [facility] [id number] SP [id number] [facility] [id number] S [id number] UN COMMUNITY PLAN MCDO [id number] SP [id number] UN COMMUNITY PLAN MCDO [id number] SP [id number] [facility] [id number] [facility] [id number] SELF PAY UNAVAILABLE SP UNAVAILA BLE [employer] COMMUNITY PLAN [facility] [id number] SP [id number] [facility](MCAID) O [id number] S [id number] [facility] Community Plan Commercial [id number] Self [id number] [facility] Medigap Part B [id number] Self [id number] Medicaid [place] Medicaid [id number] Self [id number] Problems, Conditions, and Diagnoses Code Display Name Description Problem Type Effective Dates Data Source(s) E66.9 Obesity Obesity Problem 11/07/2020 12:00:00 AM ES T eCW1 ([facility]) O99.212 Maternal obesity complicatin g , childbirth and the puerperium, antepartum Obesity complicating in second trimester Problem 11/07/2020 12:00:00 AM EST eCW1 ([facility]) Z34.80 care Supervision of other normal P roblem 09/09/2020 12:00:00 AM EST eCW1 ([facility]) Surgeries/Procedures Procedure Description Date Indications Data Source(s) OFFICE OUTPATIENT VISIT 15 MINUTES 06/09/2021 12:00:00 AM EDT MEDENT ([facility], [facility]) URINE TEST 06/08/2021 12:00:00 AM EDT eCW1 ([facility]) INITIAL PREVENTIVE MEDICINE NEW PT AGE 18-39YRS 2020 12:00:00 AM EDT MEDENT ([facility], [facility]) Results ID Date Data Source [id number] 07/06/2021 04:20:00 PM EDT [facility] Name Value Range Interpretation Code Description Data Briana rce(s) Supporting Document(s) Respiratory pathogens identified [Type] in Nasopharynx by Probe and target amplification method [facility]COVID [facility] This lab was ordered by [facility] a nd reported by [facility]. ID Date Data Source [id number] 06/09/2021 12:00:00 AM EDT [facility] Name Value Range Interpretation Code Description Data Briana rce(s) Supporting Document(s) SARS-CoV2 Rapid Antigen Negative [facility] This lab was ordered by [facility] and reported by [facility]. ID Date Data Source [id number] 01/19/2021 12:00:00 AM EDT [facility] Name Value Range Interpretation Code Description Data Briana rce(s) Supporting Document(s) SARS-CoV-2 PCR Nucleic Acid Negative [facility] This lab was ordered by [facility] [address] eliana and reported by [facility] Osei Barraza. ID Date Data Source [id number] 10/20/2020 08:14:00 PM EST MEDENT ([facility]) Name Value Range Interpretation Code Description Data Briana rce(s) Supporting Document(s) Laboratory test finding (navigational concept) Laboratory test result MEDENT ([facility], [facility]) Laboratory test finding (navigational concept) Laboratory test result MEDENT ([facility], [facility]) Laboratory test finding (navigational concept) 6.0 units 5.0-9.0 MEDENT ([facility], [facility]) Laboratory test finding (navigational concept) 1.030 1.002-1.035 MEDENT ([facility], [facility]) Laboratory test finding (navigational concept) Laboratory test result MEDENT ([facility], [facility]) Laboratory test finding (navigational concept) Laboratory test result MEDENT ([facility], [facility]) Laboratory test finding (navigational concept) 0.2 mg/dL 0.0-2.0 MEDENT ([facility], [facility]) Laboratory test finding (navigational concept) Laboratory test result MEDENT ([facility], [facility]) Laboratory test finding (navigational concept) Laboratory test result MEDENT ([facility], [facility]) Laboratory test finding (navigational concept) Laboratory test result MEDENT ([facility], [facility]) Laboratory test finding (navigational concept) Laboratory test result MEDENT ([facility], [facility]) Laboratory test finding (navigational concept) Laboratory test result MEDENT ([facility], [facility]) Laboratory test finding (navigational concept) 3 /HPF 0-3 MEDENT ([facility], [facility]) Laboratory test finding (navigational concept) 4 /HPF 0-3 MEDENT ([facility], [facility]) Laboratory test finding (navigational concept) Laboratory test result MEDENT ([facility], [facility]) Laboratory test finding (navigational concept) 3 /HPF 0-6 MEDENT ([facility], [facility]) Laboratory test finding (navigational concept) 0 /LPF 0-1 MEDENT ([facility], [facility]) Laboratory test finding (navigational concept) Laboratory test result MEDENT ([facility], [facility]) ID Date Data Source [id number] 10/20/2020 07:40:00 PM EST MEDENT ([facility], [facility]) Name Value Range Interpretation Code Description Data Briana rce(s) Supporting Document(s) Glucose, Fasting 79 mg/dL 70-100 MEDENT ([facility], [facility]) Blood Urea Nitrogen 8 mg/dL 7-18 MEDENT ([facility], [facility]) Creatinine For GFR 0.60 mg/dL 0.55-1.30 MEDENT ([facility], [facility]) Glomerular Filtration Rate Laboratory test result MEDENT ([facility], [facility]) <content>Units are mL/min/1.73 m2</content>
<content></content>
<content>Chronic Kidney Disease Staging per NKF:</content>
<content></content>
<content>Stage I & II GFR >=60 Normal to Mildly Decreased</content>
<content>Stage III GFR 30- 59 Moderately Decreased</content>
<content>Stage IV GFR 15-29 Severely Decreased</content>
<content>Stage V GFR <15 Very Little GFR Left</content>
<content>ESRD GFR <15 on MANDREL PRESS HAND</content>
<content></content> Sodium Level 138 meq/L 136-145 MEDENT ([facility], [facility]) Potassium Serum 4.4 meq/L 3.5-5.1 [facility]) Chloride Level 107 meq/L 98-107 MEDENT ([facility], [facility]) Carbon Dioxide Level 24 meq/L 21-32 [facility] ([facility]) Anion Gap 7 meq/L 8-16 MEDENT ([facility], [facility]) Calcium Level 9.3 mg/dL 8.5-10.1 MEDENT ([facility], [facility]) ID Date Data Source [id number] 10/20/2020 07:40:00 PM EST MEDENT ([facility], [facility]) Name Value Range Interpretation Code Description Data Briana rce(s) Supporting Document(s) White Blood Count 15.6 10 4.0-10.0 [facility]) Red Blood Count 4.34 10 4.00-5.40 MEDENT ([facility], [facility]) Hematocrit 38.4 % 36.0-47.0 MEDENT ([facility]) Hemoglobin 12.0 g/dL 12.0-15.5 [facility] Mean Corpuscular Hemoglobin 27.6 pg 27.0-33.0 MEDENT ([facility], [facility]) Mean Corpuscular Volume 88.5 fl 80.0-96.0 M EDENT ([facility], [facility]) Mean Corpuscular HGB Conc 31.3 g/dL 32.0-36.5 MEDENT ([facility], [facility]) Red Cell Distribution Width 14.0 % 11.5-14.5 MEDENT ([facility], [facility]) Platelet Count, Automated 492 10 150-450 MEDENT ([facility], [facility]) Neutrophils % 78.8 % 36.0-66.0 MEDENT ([facility], [facility]) Lymph % 13.9 % 24.0-44.0 MEDENT ([facility], [facility]) Eos % 1.5 % 0.0-3.0 MEDENT ([facility], [facility]) Lipscomb % 5.1 % 2.0-8.0 MEDENT ([facility], [facility]) Immature Granulocyte % 0.4 % 0-3.0 MEDENT ([facility], [facility]) Baso % 0.3 % 0.0-1.0 MEDENT ([facility], [facility]) Nucleated Red Blood Cell % 0.0 % 0-0 MED ENT ([facility], [facility]) Neutrophils # 12.3 10 1.5-8.5 MEDENT ([facility], [facility]) Lymph # 2.2 10 1.5-5.0 MEDENT ([facility], [facility]) Eos # 0.2 10 0.0-0.5 MEDENT ([facility], [facility]) Lipscomb # 0.8 10 0.0-0.8 MEDENT ([facility], [facility]) Baso # 0.1 10 0.0-0.2 MEDENT ([facility], [facility]) ID Date Data Source [id number] 10/20/2020 05:25:00 PM EST MEDENT ([facility], [facility]) Name Value Range Interpretation Code Description Data Briana rce(s) Supporting Document(s) Laboratory test finding (navigational concept) Laboratory test result MEDENT ([facility], [facility]) <content>QUANTITATIVE RESULT QU ALITATIVE INTERPRETATION</content>
<content> </content>
<content><5.0 IU/L NEGATIVE</content>
<content>5.0 - 25.0 IU/L INDETERMINATE</content>
<content>>25.0 IU/L POSITIVE</content>
<content></content> ID Date Data Source [id number] 10/20/2020 04:36:00 PM EST MEDENT ([facility], [facility]) Name Value Range Interpretation Code Description Data Briana rce(s) Supporting Document(s) Choriogonadotropin.beta subunit [Moles/volume] in Serum or P lasma [id number] MIU/ML MEDENT ([facility], [facility]) GESTATIONAL AGE APPROXIMATE HCG RANGE (MIU/ML) - [...] monitoring the treatment of cancer patients. Siemens Caspian methodology. ID Date Data Source [id number] 08/20/2020 07:36:00 PM EST MEDENT ([facility]) Name Value Range Interpretation Code Description Data Briana rce(s) Supporting Document(s) GC Dna Amplification Laboratory test result Above high nor mal [facility] ([facility]) Chlamydia Dna Amplification Laboratory test result Normal (applies to non- numeric results) [facility] ([facility]) A negative test result does not exclude the possibility of infection because test results may be affected by improper specimen collection, technical error, specimen mix-up, concurrent antibiotic therapy, or the number of organisms in the specimen which may be below the sensitivity of the test. Laboratory test finding (navigational concept) Laboratory test r esult Normal (applies to non-numeric results) [facility] ([facility]) A negative test result does not exclude the possibility of infection because test results may be affected by improper specimen collection, technical error, sample mix-up, or because the number of organisms in the sample is below the limit of detection of the test. ID Date Data Source [id number] 08/20/2020 07:36:00 PM EST [facility] ([facility]) Name Value Range Interpretation Code Description Data [facility] Supporting Document(s) Wet Prep Laboratory test result Normal (applies to non-n umeric results) [facility] ([facility]) MANY SHORT RODS PRESENT MODERATE CLUE CELLS PRESENT FEW WBC ID Date Data Source [id number] 08/20/2020 07:20:00 PM [facility]) Name Value Range Interpretation Code Description Data [facility](s) Supporting Document(s) Hepatitis C virus Ab [Units/volume] in Serum by Immunoassay 0.1 INDEX Normal (applies to non-numeric results) [facility]) Negative Not infected with HCV, unless recent infection is suspected or other evidence exists to indicate HCV infection. Choriogonadotropin.beta subunit [Moles/volume] in Serum or Plasm a 2995 MIU/ML Normal (applies to non-numeric results) [facility] ([facility]) GESTATIONAL AGE APPROXIMATE HCG RANGE (MIU/ML) - [...] monitoring the treatment of cancer patients. Siemens Paratek methodology. Reagin Ab [Presence] in Serum by RPR Laboratory test result Normal (applies to non-numeric results) MEDENT ([facility]) Hepatitis B virus surface Ab [Presence] in Serum by Im munoassay Laboratory test result Normal (applies to non-numeric results) [facility] ([facility]) Hepatitis B virus surface Ag [Presence] in Serum or Pl asma by Immunoassay Laboratory test result Normal (applies to non-numeric results) MEDENT ([facility]) HIV 1+2 Ab [Presence] in Serum Laboratory test result Normal (applies to non- numeric results) [facility] ([facility]) <content>This assay was performed utiliz ing a [...] is</content>
<content>99.6-99.8%.</content>
<content></content> ID Date Data Source [id number] 08/20/2020 06:45:00 PM EST MEDENT ([facility]) Name Value Range Interpretation Code Description Data Briana rce(s) Supporting Document(s) Reflex Urine Culture Laboratory test result Norm al (applies to non-numeric results) [facility] ([facility]) <content>FULL REPORT IN LAB NOTES (eCW a [...] FOR ESBL</content>
<content></content> ID Date Data Source [id number] 08/20/2020 06:45:00 PM EST MEDENT ([facility]) Name Value Range Interpretation Code Description Data Briana rce(s) Supporting Document(s) Appearance, Urine RFX Laboratory test result Above high no rmal MED[facility] ([facility]) PH,Urine RFX 5.0 units 5.0-9.0 Normal (applies to non-numeric res ults) [facility] ([facility]) Color, Urine RFX Laboratory test result Normal ( applies to non-numeric results) [facility] ([facility]) Glucose, Urine (Ua) Auto RFX Laboratory test result Normal (applies to non- numeric results) [facility] ([facility]) Protein, Urine Auto RFX Laboratory test result N ormal (applies to non-numeric results) MED[facility] ([facility]) Specific Pep Ur Auto RFX 1.025 1.002-1.035 Nor mal (applies to non-numeric results) MED[facility] ([facility]) Nitrite, Urine Auto RFX Laboratory test result N ormal (applies to non-numeric results) [facility] ([facility]) Bilirubin, Urine Auto RFX Laboratory test result Normal (applies to non- numeric results) [facility] ([facility]) Urobilinogen, Urine Auto RFX 2.0 mg/dL 0.0-2.0 Above high normal MED[facility] ([facility]) Ketone, Urine Auto RFX Laboratory test result No rmal (applies to non-numeric results) [facility] ([facility] [facility]) Leukocyte Esterase Ur Auto RFX Laboratory test result Abov e high normal [facility] ([facility]) Blood, Urine Blood RFX Laboratory test result No rmal (applies to non-numeric results) [facility] ([facility]) WBC, Urine Auto RFX 16 /HPF 0-3 Above high normal [facility] ([facility]) Squam Epithelial Cell Ur Aurfx 13 /HPF 0-6 N ormal (applies to non-numeric results) [facility] ([facility]) Bacteria, Urine Auto RFX Laboratory test result Above high normal [facility] ([facility]) RBC, Urine Auto RFX 2 /HPF 0-3 Normal (applies to non-nume rd results) [facility] ([facility]) Mucus, Urine RFX Laboratory test result Normal ( applies to non-numeric results) [facility] ([facility]) Hyaline Cast, Urine Auto RFX 0 /LPF 0-1 Normal (appl ies to non-numeric results) [facility] ([facility]) ID Date Data Source [id number] 07/07/2020 11:14:00 AM EST [facility] ([facility], ) Name Value Range Interpretation Code Description Data Briana rce(s) Supporting Document(s) Surgical pathology study Laboratory test result [facility] ([facility], ) FINAL DIAGNOSIS Esophagus, distal, biopsy: Columnar [...] Current Smoker completed Curre nt Smoker eCW1 ([facility]) Smoking 04/03/2021 12:00:00 AM EDT Current Smoker completed Curre nt Smoker eCW1 ([facility]) Smoking 03/27/2021 12:00:00 AM EDT Current Smoker completed Curre nt Smoker eCW1 ([facility]) Smoking 03/27/2021 12:00:00 AM EDT Current Smoker completed Curre nt Smoker eCW1 ([facility]) Smoking 03/27/2021 12:00:00 AM EDT Current Smoker completed Curre nt Smoker eCW1 ([facility]) Smoking 02/16/2021 12:00:00 AM EDT Current Smoker completed Curre nt Smoker eCW1 ([facility]) Smoking 01/04/2021 12:00:00 AM EDT Current Smoker completed Curre nt Smoker eCW1 ([facility]) Smoking 12/07/2020 12:00:00 AM EDT Current Smoker completed Curre nt Smoker eCW1 ([facility]) Smoking 11/07/2020 12:00:00 AM EST Current Smoker completed Curre nt Smoker eCW1 ([facility]) Vital Signs ID Date Data Source UNK Name Value Range Interpretation Code Description Data Source(s) Body temperature 99.9 [degF] 99.9 [degF] [facility] ([facility]) Respiratory rate 18 /min 18 /min [facility] ( [facility]) Isom body weight 110 [lb_av] 110 [lb_av] MED[facility] ([facility]) Oxygen saturation in Arterial blood by Pulse oximetry 98 % 98 % [facility] ([facility]) Body height 62.7 [in_i] 62.7 [in_i] [facility] ([facility]) 5'2.70" Heart rate 64 /min 64 /min [facility] ([facility]) Systolic blood pressure 106 mm[Hg] 106 mm[Hg] M [facility]ENT ([facility], [facility]) Diastolic blood pressure 74 mm[Hg] 74 mm[Hg] [facility] ([facility], [facility]) Heart rate 100 /min 100 /min [facility] Respiratory rate 16 /min 16 /min [facility] ( [facility], [facility]) Oxygen saturation in Arterial blood by Pulse oximetry 98 % 98 % [facility] ([facility], [facility]) Body temperature 98.6 [degF] 98.6 [degF] [facility] ([facility], [facility]) Body weight 185.00 [lb_av] 185.00 [lb_av] MEDEN T ([facility], [facility]) Body height 63 [in_i] 63 [in_i] [facility] ([facility], [facility]) 5'3" Body mass index (BMI) [Ratio] 32.8 kg/m2 32.8 k g/m2 [facility] ([facility], [facility]) Body weight 185.6 [lb_av] 185.6 [lb_av] eCW1 ([facility]) Body weight 84.19 kg 84.19 kg eCW1 ([facility]) Body height 63 [in_i] 63 [in_i] eCW1 ([facility]) Body mass index (BMI) [Ratio] 32.87 kg/m2 32.87 kg/m2 eCW1 ([facility]) Systolic blood pressure 114 mm[Hg] 114 mm[Hg] e CW1 ([facility]) Diastolic blood pressure 72 mm[Hg] 72 mm[Hg] eCW1 ([facility]) Body weight 185 [lb_av] 185 [lb_av] eCW1 ([facility]) Body weight 83.91 kg 83.91 kg eCW1 ([facility]) Body height 63 [in_i] 63 [in_i] eCW1 ([facility]) Body mass index (BMI) [Ratio] 32.771 kg/m2 32.7 71 kg/m2 W1 ([facility]) Systolic blood pressure 108 mm[Hg] 108 mm[Hg] e CW1 ([facility]) Diastolic blood pressure 68 mm[Hg] 68 mm[Hg] eCW1 ([facility]) Body mass index (BMI) [Ratio] 32.842 kg/m2 32.8 42 kg/m2 eCW1 ([facility]) Body weight 185.4 [lb_av] 185.4 [lb_av] eCW1 ([facility]) Body height 63 [in_i] 63 [in_i] eCW1 ([facility]) Systolic blood pressure 110 mm[Hg] 110 mm[Hg] e CW1 ([facility]) Diastolic blood pressure 70 mm[Hg] 70 mm[Hg] eCW1 ([facility]) Systolic blood pressure 110 mm[Hg] 110 mm[Hg] M EDENT ([facility], [facility]) Diastolic blood pressure 76 mm[Hg] 76 mm[Hg] [facility] ([facility], [facility]) Heart rate 88 /min 88 /min [facility] ([facility], [facility]) Respiratory rate 14 /min 14 /min [facility] ( [facility], [facility]) Oxygen saturation in Arterial blood by Pulse oximetry 99 % 99 % [facility] ([facility], [facility]) Body temperature 97.3 [degF] 97.3 [degF] [facility] ([facility], [facility]) Body weight 180.00 [lb_av] 180.00 [lb_av] MEDEN T ([facility], [facility]) Body height 63 [in_i] 63 [in_i] [facility] ([facility], [facility]) 5'3" Body mass index (BMI) [Ratio] 31.9 kg/m2 31.9 k g/m2 [facility] ([facility], [facility]) Body weight 185.2 [lb_av] 185.2 [lb_av] eCW1 ([facility]) Diastolic blood pressure 66 mm[Hg] 66 mm[Hg] eCW1 ([facility]) Body height 63 [in_i] 63 [in_i] eCW1 ([facility]) Body mass index (BMI) [Ratio] 32.807 kg/m2 32.8 07 kg/m2 eCW1 ([facility]) Systolic blood pressure 110 mm[Hg] 110 mm[Hg] e CW1 ([facility]) Body weight 185.6 [lb_av] 185.6 [lb_av] eCW1 ([facility]) Body weight 84.19 kg 84.19 kg eCW1 ([facility]) Body height 63 [in_i] 63 [in_i] eCW1 ([facility]) Body mass index (BMI) [Ratio] 32.878 kg/m2 32.8 78 kg/m2 eCW1 ([facility]) Systolic blood pressure 104 mm[Hg] 104 mm[Hg] e CW1 ([facility]) Diastolic blood pressure 70 mm[Hg] 70 mm[Hg] eCW1 ([facility]) Systolic blood pressure 110 mm[Hg] 110 mm[Hg] M EDENT ([facility], ) Diastolic blood pressure 60 mm[Hg] 60 mm[Hg] [facility] ([facility], ) Body height 63 [in_i] 63 [in_i] [facility] ([facility]) 5'3" Body weight 190.25 [lb_av] 190.25 [lb_av] [facility] T ([facility]) Body mass index (BMI) [Ratio] 33.7 kg/m2 33.7 k g/m2 [facility] ([facility]) Isom body weight 115 [lb_av] 115 [lb_av] MED[facility] T ([facility]) Body weight 86.297 kg 86.297 kg [facility] ([facility]) Systolic blood pressure 111 mm[Hg] 111 mm[Hg] M EDENT ([facility]) Diastolic blood pressure 77 mm[Hg] 77 mm[Hg] [facility] ([facility], ) Body height 63 [in_i] 63 [in_i] [facility] ([facility]) 5'3" Body weight 190.00 [lb_av] 190.00 [lb_av] [facility] T ([facility]) Body mass index (BMI) [Ratio] 33.7 kg/m2 33.7 k g/m2 [facility] ([facility] ) Isom body weight 115 [lb_av] 115 [lb_av] MEDEN T ([facility], ) Body weight 86.184 kg 86.184 kg ADRIANO ([facility], ) Patient Treatment Plan of Care Planned Activity Planned Date Details Description Data Source (s) Sprintec 28 0.25-35 MG-MCG 06/08/2021 12:00:00 AM EDT eCW1 ([facility]) Azithromycin 500 MG Oral Tablet 03/31/2021 12:00:00 AM EDT eCW1 ([facility]) Azithromycin 500 MG Oral Tablet 03/31/2021 12:00:00 AM EDT eCW1 ([facility]) Azithromycin 500 MG Oral Tablet 03/31/2021 12:00:00 AM EDT eCW1 ([facility]) 24 HR Nicotine 0.875 MG/HR Transdermal Patch 01/04/2021 12:00:00 AM EDT eCW1 ([facility])
--- NOTE | 2021-07-17 10:11 | ECGEPIP ---
[facility] - ED Test Date: 2021-07-17 Pat Name: ANA ARCHER Department: Room: - Gender: Female Lab Support Tech: LYNETTE : 1990 Requested By: ZARI Cortez Order Number: [id number] Reading MD: Marco A Byrd Measurements Intervals [place] Rate: 64 P: 67 OH: 164 QRS: 3 QRSD: 82 T: 17 QT: 412 QTc: 425 Interpretive Statements Normal sinus rhythm Cannot rule out Anterior infarct , age undetermined NONSPECIFIC T WAVE ABNORMALITY(S) SIMILAR TO 05/04/20 Electronically Signed on 07-17-2021 10:11:27 EST by Marco A Byrd
== END 2021-07-17 05:50 | disposition left against medical advice (07) ==
LOC: M ED 03:16
DX: Z53.29 Procedure and treatment not carried out because of patient's decision for other reasons (principal)

== ENCOUNTER → 2021-07-26 | Outpatient (CLI) | payer OTHER ==
--- NOTE | 2021-07-26 08:42 | REP ---
INDICATION: RUQ ABD PAIN WORSE W/ EATING COMPARISON: Correlation with CT dated 06/18/2020 TECHNIQUE: Real time garcía scale ultrasound examination using curved array transducer. FINDINGS: Liver and pancreas are normal in contour, size, and echogenicity without focal hepatic or pancreatic lesions identified. The gallbladder includes small mobile gallstones and layering sludge without wall thickening or pericholecystic fluid. No biliary ductal dilatation is appreciated and the common bile duct measures 5.9 mm diameter. Right kidney is normal in reniform shape without hydronephrosis and measures 10.8 x 5.4 x 3.7 cm. Prominent medullary pyramids raise the possibility of early medullary sponge kidney disease versus dehydration. No ascites in the visualized right upper quadrant. IMPRESSION: Cholelithiasis. Prominent renal pyramids may reflect underlying medullary sponge kidney. Correlation with urinalysis and follow-up may be warranted. <Electronically signed by Brant Shipman > 07/26/21 0818
== END ==
LOC: M RAD 07:18
PROVIDERS: ATTEND Physician Assistant
DX: K80.80 Other cholelithiasis without obstruction (principal)

== ENCOUNTER → 2021-08-07 | Outpatient (CLI) | payer OTHER ==
[~2021-08-07] MED LIST changes: +ISOVUE-370 76% 100ML VIAL ONE; +PANT40TA29 PO
--- NOTE | 2021-08-08 05:12 | REP ---
INDICATION: MEDULLARY SPONGUE KIDNEY. COMPARISON: None TECHNIQUE: Axial contrast-enhanced images from the lung bases to the pubic symphysis using 100 cc Isovue 370 intravenous contrast material. Delayed images of the abdomen along with coronal and sagittal reformations obtained. This CT examination was performed using the following dose reduction techniques: Automated exposure control, adjustment of mA and/or kv according to the patient's size, and the use of iterative reconstruction technique. FINDINGS: Liver, spleen, pancreas, bilateral adrenal glands and left kidney are normal. Right kidney includes 5 mm nonobstructing nephrolith. Cholelithiasis noted without evidence for acute cholecystitis. The enteric system including stomach, small, and large bowel appears normal. No evidence for obstruction or acute inflammatory process. Normal terminal ileum and appendix are identified in the right lower quadrant. Colonic and sigmoid diverticulosis noted without acute diverticulitis. Pelvis demonstrates normal bladder and age-appropriate uterus/adnexa. Incidental involuting left dominant follicle and small amount of physiologic fluid noted. No ascites. No free air. No intraperitoneal or retroperitoneal adenopathy. Abdominal aorta and vasculature appear normal. Musculoskeletal structures are intact and without acute osseous abnormality. IMPRESSION: 1. No acute abdominopelvic pathology appreciated. 2. Cholelithiasis. 3. 5 mm nonobstructing right nephrolith. 4. Scattered diverticula without acute diverticulitis. <Electronically signed by Brant Shipman > 08/08/21 0054
== END ==
LOC: M PLAIMG 11:47
PROVIDERS: ATTEND Physician Assistant
DX: N15.9 Renal tubulo-interstitial disease, unspecified (principal); K80.20 Calculus of gallbladder without cholecystitis without obstruction; N20.0 Calculus of kidney
CPT/HCPCS: 74177; Q9967

== ENCOUNTER 2021-08-09 05:00 | Emergency (ER) | payer OTHER ==
[~2021-08-09] VITALS: Ht 160 cm; Wt 84.4 kg
[2021-08-09 05:00] VITALS: BP 122/74
[~2021-08-09 05:00] MED LIST changes: -ISOVUE-370 76% 100ML VIAL ONE; -PANT40TA29 PO
[2021-08-09] MEDS ORDERED: PANT40TA29 PO (05:07)
--- OUTSIDE RECORDS SUMMARY | 2021-08-09 05:08 | CCD ---
Continuity of Care Document (CCD) Created on: 08/03/2021 Andria Dorsey External Reference #: [id number] : 1990 Sex: Female Author Author Andria [place] Organization Unknown [place] [address] Phone [phone] Care Team Providers Care Radiology Asst Name Role Phone Magnolia Meeks D.O. AUTM Bautista Drake M.D. AUTM [phone] Problems Description No Information Available Social History [...] Ordering Provide r Date Sucralfate 1gm Tablets take one tablet by mouth four times a day on an empty stomach 1 hour before meal 270tabs Magnolia Meeks D.O. Pantoprazole Sodium 40mg Tablets D R take one tablet by mouth every day 90tabs Magnolia Savage er, D.O. Omeprazole 20mg Capsules DR 1 by mouth every day Unknown Immunizations Description No Information Available Vital Signs Date Vital Result Comment 08/02/2021 11:42am BP Systolic 114 mmHg BP Diastolic 72 mmHg Height 62.7 inches 5'2.70" Weight 187.50 lb BMI (Body Mass Index) 33.5 kg/m2 Heart Rate 71 /min Respiratory Rate 18 /min Body Temperature 98.4 F O2 % BldC Oximetry 100 % [place] Body Weight 110 lb 07/19/2021 9:57am BP Systolic 110 mmHg BP Diastolic 60 mmHg Height 62.7 inches 5'2.70" Weight 188.12 lb BMI (Body Mass Index) 33.6 kg/m2 Heart Rate 86 /min Respiratory Rate 12 /min Body Temperature 97.2 F O2 % BldC Oximetry 99 % [place] Body Weight 110 lb Results Test Acquired Date Facility Test Result H/L Range Note Cardiac Marker Panel 07/17/2021 [facility] Outpatient Test ing (Registration) [address] [place] [address] [phone] CPK Creatine Phosphokinase 170 U/L Normal 26-19 2 CK-MB Value Mass 1.7 NG/ML Normal <3.6 MB/CK Relative Index 1.00 Normal < Or =4 1 Troponin I < 0.02 NG/ML Normal < 0.10 2 Basic Metabolic Profile 07/17/2021 [facility] Outpatient T esting (Registration) [address] [place] [address] [phone] Glucose, Fasting 92 mg/dL Normal 70-100 Blood Urea Nitrogen 11 mg/dL Normal 7-18 Creatinine For GFR 0.60 mg/dL Normal 0.55-1.30 Glomerular Filtration Rate > 60.0 Normal >60 3 Sodium Level 141 mEq/L Normal 136-145 Potassium Serum 4.2 mEq/L Normal 3.5-5.1 Chloride Level 109 mEq/L High 98-107 Carbon Dioxide Level 23 mEq/L Normal 21-32 Anion Gap 9 mEq/L Normal 8-16 Calcium Level 9.6 mg/dL Normal 8.5-10.1 1 DIAGNOSIS CRITERIA MMB ng/ml Relative Index (RI) NON-AMI < or = 5 N/A REEDER ZONE > 5 < or = 4 AMI > 5 > 4 2 Troponin I Reference Interva l for [employer] LOCI: 99th Percentile= 0.00-0.045 ng/ml Risk Stratification: <= 0.10 ng/ml Decreased Risk for Adverse Clinical Events. 0.10-1.50 ng/ml Increased Risk for Adv erse Clinical Events. Evaluation of additional criterion and/or repeat testing in 2-6 hours is suggested to rule out myocardial damage. >= 1.50 ng/ml Indicative of Myocardial Injury. 3 Units are mL/min/1.73 m2 Chronic Kidney Disease Staging per NKF: Stage I & II GFR >=60 Normal to Mildly Decreased Stage III GFR 30-59 Moderately Decreased Stage IV GFR 15-29 Severely Decreased Stage V GFR <15 Very Little GFR Left ESRD GFR <15 on PAYROLL COORDINATOR Procedures Date Code Description Status 08/02/2021 58447 Office/Outpatient Established Mo d MDM 30-39 Min Completed 07/19/2021 21627 Office/Outpatient Established Mo d MDM 30-39 Min Completed 07/06/2021 87852 Office/Outpatient Established Lo w MDM 20-29 Min Completed Medical Devices Description No Information Available Encounters Type Date Location Provider Dx Diagnosis Office Visit 08/02/2021 11:40a [facility] APRIL John K80.80 Other cholelithiasis without obstruction N15.9 Renal tubulo-interstitial di sease, unspecified Office Visit 07/19/2021 10:00a [facility] APRIL John K21.9 Gastro-esophageal reflux dis ease without esophagitis K80.80 Other cholelithiasis without obstruction Office Visit 07/06/2021 4:00p [facility] APRIL Rojas J06.9 Acute upper respiratory infe ction, unspecified Assessments Date Code Description Provider 08/02/2021 K80.80 Other cholelithiasis without obs truction APRIL John 08/02/2021 N15.9 Renal tubulo-interstitial diseas e, unspecified APRIL John 07/19/2021 K21.9 Gastro-esophageal reflux disease without esophagitis APRIL John 07/19/2021 K80.80 Other cholelithiasis without obs truction APRIL John 07/06/2021 J06.9 Acute upper respiratory infectio n, unspecified APRIL Rojas Plan of Treatment Future Appointment(s):* 01/16/2022 10:20 am - APRIL John at [facility] Functional Status Description No Information Available Mental Status Description No Information Available Referrals Refer to Dr Reason for Referral Status Appt Date Bautista Drake M.D. Andria has RUQ pain and kn own gallstones. Please evaluate and consider possible cholecystectomy. Sent [address] [place] [address] [phone]
--- OUTSIDE RECORDS SUMMARY | 2021-08-09 05:08 | CCD | Continuity of Care Document ---
Author Author Andria COURTNEY [place] Organization Unknown [place] [address] Phone [phone] Care Team Providers Care Shipping Helper Name Role Phone Magnolia Meeks D.O. AUTM Problems Description No Information Available Social History [...] every day 90tabs Magnolia Savage er, D.O. Immunizations Description No Information Available Vital Signs Date Vital Result Comment 07/19/2021 9:57am BP Systolic 110 mmHg BP Diastolic 60 mmHg Height 62.7 inches 5'2.70" Weight 188.12 lb BMI (Body Mass Index) 33.6 kg/m2 Heart Rate 86 /min Respiratory Rate 12 /min Body Temperature 97.2 F O2 % BldC Oximetry 99 % [place] Body Weight 110 lb 07/06/2021 4:14pm Height 62.7 inches 5'2.70" Heart Rate 64 /min Respiratory Rate 18 /min Body Temperature 99.9 F O2 % BldC Oximetry 98 % [place] Body Weight 110 lb Results Test Acquired Date Facility Test Result H/L Range Note Cardiac Marker Panel 07/17/2021 [facility] Outpatient Test ing (Registration) [address] [place] [address] [phone] CPK Creatine Phosphokinase 170 U/L Normal 26-19 2 CK-MB Value Mass 1.7 NG/ML Normal <3.6 MB/CK Relative Index 1.00 Normal < Or =4 1 Troponin I < 0.02 NG/ML Normal < 0.10 2 Basic Metabolic Profile 07/17/2021 [facility] Outpatient T esting (Registration) [address] [place] [address] [phone] Glucose, Fasting 92 mg/dL Normal 70-100 Blood [...] 2 Troponin I Reference Interva l for [employer] LOCI: 99th Percentile= 0.00-0.045 ng/ml Risk Stratification: [...] Little GFR Left ESRD GFR <15 on SENIOR BUSINESS MANAGER Procedures Date Code Description Status 07/19/2021 27544 Office/Outpatient Established Mo d MDM 30-39 Min Completed 07/06/2021 56405 Office/Outpatient Established Lo w MDM 20-29 Min Completed Medical Devices Description No Information Available Encounters Type Date Location Provider Dx Diagnosis Office Visit 07/19/2021 10:00a [facility] APRIL John K21.9 Gastro-esophageal reflux dis ease without esophagitis K80.80 Other cholelithiasis without obstruction Office Visit 07/06/2021 4:00p [facility] APRIL Rojas J06.9 Acute upper respiratory infe ction, unspecified Assessments Date Code Description Provider 07/19/2021 K21.9 Gastro-esophageal reflux disease without esophagitis APRIL John 07/19/2021 K80.80 Other cholelithiasis without obs truction APRIL John 07/06/2021 J06.9 Acute upper respiratory infectio n, unspecified APRIL Rojas Plan of Treatment Future Appointment(s):* 01/16/2022 10:20 am - APRIL John at [facility] Functional Status Description No Information Available Mental Status Description No Information Available Referrals Description No Information Available
--- OUTSIDE RECORDS SUMMARY | 2021-08-09 05:08 | CCD | Continuity of Care Document ---
Author Author Andria NEWTON DO Organization Unknown Address [address] [place] [address] Phone [phone] Care Team Providers Care Pipe Stem Repairer Name Role Phone Magnolia Meeks D.O. AUTM [phone] Problems Description No Information Available Social History [...] F O2 % BldC Oximetry 98 % [place] Body Weight 110 lb 09/08/2019 10:16am BP Systolic 120 mmHg BP Diastolic 88 mmHg Height 62.7 inches 5'2.70" Weight 179.38 lb BMI (Body Mass Index) 32.1 kg/m2 Heart Rate 73 /min Respiratory Rate 16 /min Body Temperature 98.6 F O2 % BldC Oximetry 98 % [place] Body Weight 110 lb Results Test Acquired Date Facility Test Result H/L Range Note Cardiac Marker Panel 07/17/2021 [facility] Outpatient Test ing (Registration) [address] [place] [address] [phone] CPK Creatine Phosphokinase 170 U/L Normal 26-19 2 CK-MB Value Mass 1.7 NG/ML Normal <3.6 MB/CK Relative Index 1.00 Normal < Or =4 1 Troponin I < 0.02 NG/ML Normal < 0.10 2 Basic Metabolic Profile 07/17/2021 [facility] Outpatient T esting (Registration) [address] [place] [address] [phone] Glucose, Fasting 92 mg/dL Normal 70-100 Blood [...] 2 Troponin I Reference Interva l for [employer] LOCI: 99th Percentile= 0.00-0.045 ng/ml Risk Stratification: [...] Little GFR Left ESRD GFR <15 on TELECOMMUNICATIONS TECHNICIAN Procedures Date Code Description Status 07/06/2021 78502 Office/Outpatient Established w MDM 20-29 Min Completed Medical Devices Description No Information Available Encounters Type Date Location Provider Dx Diagnosis Office Visit 07/06/2021 4:00p [facility] APRIL Rojas J06.9 Acute upper respiratory infe ction, unspecified Assessments Date Code Description Provider 07/06/2021 J06.9 Acute upper respiratory infectio n, unspecified APRIL Rojas Plan of Treatment Future Appointment(s):* 07/18/2021 9:40 am - APRIL John at [facility] Functional Status Description No Information Available Mental Status Description No Information Available Referrals Description No Information Available
--- OUTSIDE RECORDS SUMMARY | 2021-08-09 05:08 | CCD ---
Author Author [facility] Organization [facility] Address Unknown Phone Unavailable Care Team Providers Care Service Loss Control Consultant Name Role Phone Collette Joaquin Unavailable PROBLEMS Type Condition ICD9-CM Code [id number] Code Onset Dates Condition S tatus W/U Status Risk SNOMED Code Notes Problem Obesity complicating in second trimester O99.212 Active confirmed 776387136932 Problem Obesity E66.9 Active confirmed 943009806 Problem Supervision of other normal Z34.80 Ac tive confirm [id number] ALLERGIES Allergen (clinical drug ingredient) Drug/Non Drug Allergy do cumented on EMR Reaction Allergy Type Onset Date Status penicillin V Penicillin Hives Drug Allergy Active ENCOUNTERS from 1990 to 2021-08-02 Encounter Location Date Provider Diagnosis [facility] [address] [facility] [phone] [place] [address] Aug, Collette Joaquin IMMUNIZATIONS No Information SOCIAL HISTORY Tobacco Use: [...] Notes Start Da te End Date Status Flnandini Gummies [place]-3 DHA - 1 tablet Orally Once a [...] 30 minutes before morning meal Orally On ce a day Active PROCEDURES No Information RESULTS No Results REASON FOR VISIT TIM APPT MEDICAL (GENERAL) HISTORY Type Description Date Medical [...] day for 28 day(s) Jun, Next Appt Details Provider Name:Collette Ana Joaquin, 2021-09-21 01:00:00 PM, [address] [facility], , [place], [address], Insurance Providers Payer Name Payer Address Payer Phone Insured Name Patient Relati onship to Insured Coverage Start Date Coverage End Date [facility] [employer] [facility] [address] [facility] [phone] 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
--- OUTSIDE RECORDS SUMMARY | 2021-08-09 05:08 | CCD | Continuity of Care Document ---
Author Author Andria COURTNEY [place] Organization [place] [address] Phone [phone] Care Team Providers Care Retail Banking Manager Name Role Phone Magnolia Meeks D.O. AUTM [phone] Bautista Drake M.D. AUTM [phone] Problems Description No Information Available Social History [...] F O2 % BldC Oximetry 100 % [place] Body Weight 110 lb 07/19/2021 9:57am BP Systolic 110 mmHg BP Diastolic 60 mmHg Height 62.7 inches 5'2.70" Weight 188.12 lb BMI (Body Mass Index) 33.6 kg/m2 Heart Rate 86 /min Respiratory Rate 12 /min Body Temperature 97.2 F O2 % BldC Oximetry 99 % [place] Body Weight 110 lb Results Test Acquired Date Facility Test Result H/L Range Note Cardiac Marker Panel 07/17/2021 [facility] Outpatient Test ing (Registration) [address] [place] [address] [phone] CPK Creatine Phosphokinase 170 U/L Normal 26-19 2 CK-MB Value Mass 1.7 NG/ML Normal <3.6 MB/CK Relative Index 1.00 Normal < Or =4 1 Troponin I < 0.02 NG/ML Normal < 0.10 2 Basic Metabolic Profile 07/17/2021 [facility] Outpatient T esting (Registration) [address] [place] [address] [phone] Glucose, Fasting 92 mg/dL Normal 70-100 Blood [...] 2 Troponin I Reference Interva l for [employer] LOCI: 99th Percentile= 0.00-0.045 ng/ml Risk Stratification: [...] Little GFR Left ESRD GFR <15 on MOBILE ELECTRONICS INSTALLER Procedures Date Code Description Status 08/02/2021 16029 Office/Outpatient Established Mo d MDM 30-39 Min Completed 07/19/2021 21377 Office/Outpatient Established Mo d MDM 30-39 Min Completed 07/06/2021 72699 Office/Outpatient Established Lo w MDM 20-29 Min Completed Medical Devices Description No Information Available Encounters Type Date Location Provider Dx Diagnosis Office Visit 08/02/2021 11:40a 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 APRIL John K21.9 Gastro-esophageal reflux dis ease without esophagitis K80.80 Other cholelithiasis without obstruction Office Visit 07/06/2021 4:00p [facility] APRIL Rojas J06.9 Acute upper respiratory infe [...] 01/16/2022 10:20 am - APRIL John at [facility] Functional Status Description No Information Available Mental Status Description No Information Available Referrals Refer to Dr Reason for Referral Status Appt Date Bautista Drake M.D. Andria has RUQ pain and kn own gallstones. Please evaluate and consider possible cholecystectomy. Sent [address] [place] [address] [phone]
--- OUTSIDE RECORDS SUMMARY | 2021-08-09 05:08 | CCD ---
Continuity of Care Document (CCD) Created on: 07/21/2021 Andria Dorsey External Reference #: [id number] : [id number] Sex: Female Author Author Andria COURTNEY [place] Organization Unknown [place] [address] Phone [phone] Care Team Providers Care Sales Operations Associate Name Role Phone Magnolia Meeks D.O. AUTM [...] F O2 % BldC Oximetry 99 % [place] Body Weight 110 lb 07/06/2021 4:14pm Height 62.7 inches 5'2.70" Heart Rate 64 /min Respiratory Rate 18 /min Body Temperature 99.9 F O2 % BldC Oximetry 98 % [place] Body Weight 110 lb Results Test Acquired Date Facility Test Result H/L Range Note Cardiac Marker Panel 07/17/2021 [facility] Outpatient Test ing (Registration) [address] [place] [address] [phone] CPK Creatine Phosphokinase 170 U/L Normal 26-19 2 CK-MB Value Mass 1.7 NG/ML Normal <3.6 MB/CK Relative Index 1.00 Normal < Or =4 1 Troponin I < 0.02 NG/ML Normal < 0.10 2 Basic Metabolic Profile 07/17/2021 [facility] Outpatient T esting (Registration) [address] [place] [address] [phone] Glucose, Fasting 92 mg/dL Normal 70-100 Blood [...] 2 Troponin I Reference Interva l for [employer] LOCI: 99th Percentile= 0.00-0.045 ng/ml Risk Stratification: [...] Little GFR Left ESRD GFR <15 on CORE CHECKER Procedures Date Code Description Status 07/19/2021 40231 Office/Outpatient Established Mo d MDM 30-39 Min Completed 07/06/2021 08997 Office/Outpatient Established Lo w MDM 20-29 Min Completed Medical Devices Description No Information Available Encounters Type Date Location Provider Dx Diagnosis Office Visit 07/19/2021 10:00a [facility] APRIL John K21.9 Gastro-esophageal reflux dis ease without esophagitis K80.80 Other cholelithiasis without obstruction Office Visit 07/06/2021 4:00p [facility] APRIL Rojas J06.9 Acute upper respiratory infe ction, unspecified Assessments Date Code Description Provider 07/19/2021 K21.9 Gastro-esophageal reflux disease without esophagitis APRIL John 07/19/2021 K80.80 Other cholelithiasis without obs truction APRIL John 07/06/2021 J06.9 Acute upper respiratory infectio n, unspecified APRIL Rojas Plan of Treatment Future Appointment(s):* 01/16/2022 10:20 am - APRIL John at [facility] Functional Status Description No Information Available Mental Status Description No Information Available Referrals Description No Information Available
--- OUTSIDE RECORDS SUMMARY | 2021-08-09 05:08 | CCD | Continuity of Care Document ---
Author Author Andria COURTNEY [place] Organization [place] [address] Phone [phone] Care Team Providers Care Satellite Communications Operator Name Role Phone Magnolia Meeks D.O. AUTM Bautista Drake M.D. AUTM [phone] Problems Description No Information Available Social History [...] F O2 % BldC Oximetry 100 % [place] Body Weight 110 lb 07/19/2021 9:57am BP Systolic 110 mmHg BP Diastolic 60 mmHg Height 62.7 inches 5'2.70" Weight 188.12 lb BMI (Body Mass Index) 33.6 kg/m2 Heart Rate 86 /min Respiratory Rate 12 /min Body Temperature 97.2 F O2 % BldC Oximetry 99 % [place] Body Weight 110 lb Results Test Acquired Date Facility Test Result H/L Range Note Cardiac Marker Panel 07/17/2021 [facility] Outpatient Test ing (Registration) [address] [place] [address] [phone] CPK Creatine Phosphokinase 170 U/L Normal 26-19 2 CK-MB Value Mass 1.7 NG/ML Normal <3.6 MB/CK Relative Index 1.00 Normal < Or =4 1 Troponin I < 0.02 NG/ML Normal < 0.10 2 Basic Metabolic Profile 07/17/2021 [facility] Outpatient T esting (Registration) [address] [place] [address] [phone] Glucose, Fasting 92 mg/dL Normal 70-100 Blood [...] 2 Troponin I Reference Interva l for [employer] LOCI: 99th Percentile= 0.00-0.045 ng/ml Risk Stratification: [...] Little GFR Left ESRD GFR <15 on PATIENT INSURANCE CLERK Procedures Date Code Description Status 08/02/2021 81675 Office/Outpatient Established Mo d MDM 30-39 Min Completed 07/19/2021 11988 Office/Outpatient Established Mo d MDM 30-39 Min Completed 07/06/2021 37532 Office/Outpatient Established Lo w MDM 20-29 Min Completed Medical Devices Description No Information Available Encounters Type Date Location Provider Dx Diagnosis Office Visit 08/02/2021 11:40a [facility] APRIL John K80.80 Other cholelithiasis without obstruction 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 Andria has RUQ pain and kn own gallstones. Please evaluate and consider possible cholecystectomy. Sent [address] [place] [address] [phone]
--- OUTSIDE RECORDS SUMMARY | 2021-08-09 05:09 | CCD ---
Author Author [facility] Organization [facility] Address Unknown Phone Unavailable Support Name Relationship Address Phone REDLBSTR Next Of Kin [address] [place] [address] [place] [address] ARBYSWTN Next Of Kin [address] [place] [address] [place] [address] Un[place] [address] [facility] Next Of Kin [address] [place] [address] [place] [address] SUSHANT CHRISTIE Next Of Kin [address] [place] [address] KIMBERLY ARCHER Next Of Kin [address] [place] [address] UE Next Of Kin Unknown Unavailable ST Next Of Kin Unknown Unavailable JONATHAN CALLE Next Of Kin [address] [place] [address] JONATHAN JACKSON Next Of Kin [address] [place] [address] RONA PETERSON Next Of Kin [address] [place] [address] BHARATI CALLE Next Of Kin [address] [place] [address] MANUEL, (LEGAL GUARDIAN) ARPIT Next Of Kin [address] [place] [address] [employer] Next Of Kin [place] [address] FAMILY DOLLAR Next Of Kin [address] [place] [address] GREG JACKSON Next Of Kin [address] [place] [address] ESTHERBASSAM COY Next Of Kin [address] [place] [address] DWIGHT SHIRLEY Next Of Kin [address] [place] [address] Care Team Providers Care Supply Chain Logistics Manager Name Role Phone LETTIERE, A IRVING PA [...] Unavailable Feola, T Maggy PA Unavailable Unavailable Guadalupe, D Rahul PA Unavailable Unavailable Guadalupe, D Rahul PA Unavailable Unavailable Guadalupe, D Rahul PA Unavailable Unavailable Guadalupe, D Rahul PA Unavailable Unavailable Guadalupe, D Rahul PA Unavailable Unavailable Guadalupe, D Rahul PA Unavailable Unavailable Guadalupe, D Rahul PA Unavailable Unavailable Guadalupe, D Rahul PA Unavailable Unavailable Guadalupe, D Rahul PA Unavailable Unavailable Guadalupe, D Rahul PA Unavailable Unavailable Guadalupe, D Rahul PA Unavailable Unavailable Guadalupe, D Rahul PA Unavailable Unavailable Guadalupe, D Rahul PA Unavailable Unavailable Guadalupe, D Rahul PA Unavailable Unavailable Guadalupe, D Rahul PA Unavailable Unavailable Guadalupe, D Rahul PA Unavailable Unavailable Guadalupe, D Rahul PA Unavailable Unavailable Guadalupe, D Rahul PA Unavailable Unavailable Guadalupe, D Rahul PA Unavailable Unavailable Guadalupe, D Rahul PA Unavailable Unavailable Guadalupe, D Rahul PA Unavailable Unavailable Guadalupe, D Rahul PA Unavailable Unavailable Guadalupe, D Rahul PA Unavailable Unavailable Guadalupe, D Rahul PA Unavailable Unavailable Guadalupe, D Rahul PA Unavailable Unavailable Guadalupe, D Rahul PA Unavailable Unavailable Guadalupe, D Rahul PA Unavailable Unavailable Guadalupe, D Rahul PA Unavailable Unavailable Guadalupe, D Rahul PA Unavailable Unavailable Guadalupe, D Rahul PA Unavailable Unavailable Guadalupe, D Rahul PA Unavailable Unavailable Guadalupe, D Rahul PA Unavailable Unavailable Guadalupe, D Rahul PA Unavailable Unavailable Guadalupe, D Rahul PA Unavailable Unavailable Guadalupe, D Rahul PA Unavailable Unavailable Guadalupe, D Rahul PA Unavailable Unavailable Guadalupe, D Rahul PA Unavailable Unavailable Guadalupe, D Rahul PA Unavailable Unavailable Guadalupe, D Rahul PA Unavailable Unavailable Guadalupe, D Rahul PA Unavailable Unavailable Guadalupe, D Rahul PA Unavailable Unavailable Guadalupe, D Rahul PA Unavailable Unavailable Guadalupe, D Rahul PA Unavailable Unavailable Guadalupe, D Rahul PA Unavailable Unavailable Guadalupe, D Rahul PA Unavailable Unavailable Guadalupe, D Rahul PA Unavailable Unavailable Guadalupe, D Rahul PA Unavailable Unavailable Guadalupe, D Rahul PA Unavailable Unavailable Guadalupe, D Rahul PA Unavailable Unavailable Guadalupe, D Rahul PA Unavailable Unavailable Guadalupe, D Rahul PA Unavailable Unavailable Guadalupe, D Rahul PA Unavailable Unavailable Guadalupe, D Rahul PA Unavailable Unavailable Guadalupe, D Rahul PA Unavailable Unavailable Guadalupe, D Rahul PA Unavailable Unavailable O'sophia, A Irving PA Unavailable Unavailable O'sophia, A Irving PA Unavailable Unavailable O'sophia, A Irving PA Unavailable Unavailable O'sophia, A Irving PA Unavailable Unavailable O'sophia, A Irving PA Unavailable Unavailable O'sophia, A Irving PA Unavailable Unavailable O'sophia, A Irving PA Unavailable Unavailable O'sophia, A Irving PA Unavailable Unavailable O'sophia, A Irving PA Unavailable Unavailable O'sophia, A Irving PA Unavailable Unavailable O'sophia, A Irving PA Unavailable Unavailable O'sophia, A Irving PA Unavailable Unavailable O'sophia, A Irving PA Unavailable Unavailable O'sophia, A Irving PA Unavailable Unavailable O'sophia, A Irving PA Unavailable Unavailable O'sophia, A Irving PA Unavailable Unavailable O'sophia, A Irving PA Unavailable Unavailable O'sophia, A Irving PA Unavailable Unavailable O'sophia, A Irving PA Unavailable Unavailable O'sophia, A Irving PA Unavailable Unavailable O'sophia, A Irving PA Unavailable Unavailable O'sophia, A Irving PA Unavailable Unavailable O'sophia, A Irving PA Unavailable Unavailable O'sophia, A Irving PA Unavailable Unavailable O'sophia, A Irving PA Unavailable Unavailable O'sophia, A Irving PA Unavailable Unavailable O'sophia, A Irving PA Unavailable Unavailable O'sophia, A Irving PA Unavailable Unavailable O'sophia, A Irving PA Unavailable Unavailable O'sophia, A Irving PA Unavailable Unavailable O'sophia, A Irving PA Unavailable Unavailable O'sophia, A Irving PA Unavailable Unavailable O'sophia, A Irving PA Unavailable Unavailable Re-disclosure Warning The records [...] is protected by Article 27-F of the [place] Public Health law. If you continue you may have access to information: Regarding HIV / AIDS; Provided by facilities licensed or operated by the [place] Office of Mental Health; or Provided by the [place] Office for People With Developmental Disabilities. If such information is present, then the following [place] [facility] mandated warning applies: This information has been [...] law may result in a fine or long-term sentence or both. A general authorization for the release of medical or other information is NOT sufficient authorization for further disc losure. Family History Family Member Name Family Member Gender Family Member Status Date o f Status Description Data Source(s) Unknown Female Problem MEDENT ([facility]) Encounters Encounter Providers Location Date Indications Data Source(s ) Outpatient Attender: Irving CHEN [facility] 08/02/2021 10:40:00 AM EST MED[facility] ([facility]) Unknown [address] [facility] [address] 08/02/2021 12:00:00 AM EST eCW1 ([facility]) Outpatient Attender: Irving CHEN [facility] 07/19/2021 09:00:00 AM EST MED[facility] ([facility]) Outpatient Attender: Rahul CHEN [facility] 07/06/2021 04:00:00 PM EDT MEDENT ([facility]) Outpatient Attender: IRVING huddleston 06/09/2021 05:40:00 PM EDT MEDENT ([facility] (WC ESTOB) [address] [place] [address] 06/08/2021 12:00:00 AM EDT eCW1 ([facility]) Unknown [address] [facility] [address] 05/15/2021 12:00:00 AM EDT eCW1 ([facility]) Unknown [address] [facility] [address] 03/31/2021 12:00:00 AM EDT eCW1 ([facility]) Unknown [address] [facility] [address] 03/31/2021 12:00:00 AM EDT eCW1 ([facility]) Unknown [address] [facility] [address] 03/29/2021 12:00:00 AM EDT eCW1 ([facility]) (WC ESTOB) [facility] [place] [address] 02/16/2021 12:00:00 AM EDT eCW1 ([facility]) Outpatient Attender: Maggy CHEN 11:11:20 AM EDT - 01/19/2021 11:41:10 AM EDT DocuTap ([facility] ) ( ESTOB) [facility] Est OB [address] [place] [address] 01/04/2021 12:00:00 AM EDT eCW1 ([facility]) Outpatient Attender: IRVING Pisano Jonas Cristian flaquito 12/20/2020 01:45:00 PM EDT MEDENT ([facility]) ( ESTOB) [address] [place] [address] 12/07/2020 12:00:00 AM EDT eCW1 ([facility]) ( ESTOB) [facility] Est OB [address] [place] [address] 11/07/2020 12:00:00 AM EST eCW1 ([facility]) Immunizations Vaccine Date Status Description Data Source(s) COVID-19 VACCINE Moderna 01/24/2021 12:00:00 AM EDT completed [facility] Vaccine Series Complete: NOThis Data was Submitted to [facility] Via [facility]. TB Skin test is not vaccine. 12/20/2020 01:40:00 PM EDT completed MEDENT ([facility]) Medications Medication Brand Name Start Date Product Form Dose Route Admi nistrative Instructions Pharmacy Instructions Status Indications Reaction Description Data Source(s) No Active Medications 06/09/2021 12:00:00 AM EDT completed MEDENT ([facility]) Sprintec 28 0.25-35 MG-MCG Sprintec 28 0.25-35 MG-MCG 2020 12:00:00 AM EDT 1.0 {tablet} active Sprintec 28 0.25-35 MG-MCG eCW1 ([facility]) Sprintec 28 0.25-35 MG-MCG Sprintec 28 0.25-35 MG-MCG 2020 12:00:00 AM EDT 1.0 {tablet} active Sprintec 28 0.25-35 MG-MCG eCW1 ([facility]) Azithromycin 500 MG Oral Tablet Azithromycin 500 MG 03/31/2021 1 2:00:00 AM EDT 2.0 {tablets} active Azithromyc in 500 MG eCW1 ([facility]) Azithromycin 500 MG Oral Tablet Azithromycin 500 MG 03/31/2021 1 2:00:00 AM EDT 2.0 {tablets} active Azithromyc in 500 MG eCW1 ([facility]) Azithromycin 500 MG Oral Tablet Azithromycin 500 MG 03/31/2021 1 2:00:00 AM EDT 2.0 {tablets} suspended Azithrom ycin 500 MG eCW1 ([facility]) Azithromycin 500 MG Oral Tablet Azithromycin 500 MG 03/31/2021 1 2:00:00 AM EDT 2.0 {tablets} active Azithromyc in 500 MG eCW1 ([facility]) Azithromycin 500 MG Oral Tablet Azithromycin 500 MG 03/31/2021 1 2:00:00 AM EDT 2.0 {tablets} suspended Azithrom ycin 500 MG eCW1 ([facility]) 24 HR Nicotine 0.875 MG/HR Transdermal Patch Nicotine Step 1 21 MG/24HR Nicotine Step 1 21 MG/24HR 01/04/2021 12:00:00 AM EDT 1.0 {patch_to_skin} suspended eCW1 ([facility]) 24 HR Nicotine 0.875 MG/HR Transdermal Patch Nicotine Step 1 21 MG/24HR Nicotine Step 1 21 MG/24HR 01/04/2021 12:00:00 AM EDT 1.0 {patch_to_skin} suspended Nicotine Step 1 21 MG/24HR eCW1 ([facility]) 24 HR Nicotine 0.875 MG/HR Transdermal Patch Nicotine Step 1 21 MG/24HR Nicotine Step 1 21 MG/24HR 01/04/2021 12:00:00 AM EDT 1.0 {patch_to_skin} suspended Nicotine Step 1 21 MG/24HR eCW1 ([facility]) 24 HR Nicotine 0.875 MG/HR Transdermal Patch Nicotine Step 1 21 MG/24HR Nicotine Step 1 21 MG/24HR 01/04/2021 12:00:00 AM EDT 1.0 {patch_to_skin} suspended Nicotine Step 1 21 MG/24HR eCW1 ([facility]) 24 HR Nicotine 0.875 MG/HR Transdermal Patch Nicotine Step 1 21 MG/24HR Nicotine Step 1 21 MG/24HR 01/04/2021 12:00:00 AM EDT 1.0 {patch_to_skin} active Nicotine Step 1 21 MG/24HR eCW1 ([facility]) 24 HR Nicotine 0.875 MG/HR Transdermal Patch Nicotine Step 1 21 MG/24HR Nicotine Step 1 21 MG/24HR 01/04/2021 12:00:00 AM EDT 1.0 {patch_to_skin} suspended Nicotine Step 1 21 MG/24HR eCW1 ([facility]) 24 HR Nicotine 0.875 MG/HR Transdermal Patch Nicotine Step 1 21 MG/24HR Nicotine Step 1 21 MG/24HR 01/04/2021 12:00:00 AM EDT 1.0 {patch_to_skin} suspended Nicotine Step 1 21 MG/24HR eCW1 ([facility]) 24 HR Nicotine 0.875 MG/HR Transdermal Patch Nicotine Step 1 21 MG/24HR Nicotine Step 1 21 MG/24HR 01/04/2021 12:00:00 AM EDT 1.0 {patch_to_skin} suspended Nicotine Step 1 21 MG/24HR eCW1 ([facility]) Sucralfate 1000 MG Oral Tablet [Carafate] Carafate 07/07/2020 1 2:00:00 AM EST ORAL active MEDENT ([facility] ) Insurance Providers Payer name Policy type / Coverage type Policy ID Covered libertarian ID Covered libertarian's relationship to bridges Policy Bridges Plan Information [facility] [id number] SP [id number] ON LICENSE OF [facility] COMMUNITY PLAN MCDO [id number] SP [id number] ON LICENSE OF [facility] [id number] SP [id number] ON LICENSE OF [facility] COMMUNITY PLAN [facility] [id number] SP [id number] [email or web address] [id number] Self [id number] MEDICAID [id number] SP [id number] BC[facility] [phone] [id number] SP [id number] [facility] MEDICAID [facility] [id number] S [id number] ON LICENSE OF [facility] COMMUNITY PLAN MCDO [id number] SP [id number] [facility] [id number] SP [id number] [facility] [id number] [facility] [id number] SELF PAY UNAVAILABLE SP UNAVAILA BLE UN COMMUNITY PLAN MCDO [id number] SP [id number] [facility] O [id number] S [id number] [facility] Community Plan Commercial [id number] Self [id number] [facility] Part B [id number] Self [id number] Medicaid [place] Medicaid [id number] Self [id number] Problems, Conditions, and Diagnoses Code Display Name Description Problem Type Effective Dates Data Source(s) E66.9 Obesity Obesity Problem 11/07/2020 12:00:00 AM ES T eCW1 ([facility]) O99.212 Maternal obesity complicatin g , childbirth and the puerperium, antepartum Obesity complicating in second trimester Problem 11/07/2020 12:00:00 AM EST eCW1 ([facility]) Z34.80 care Supervision of other normal P roblem 09/09/2020 12:00:00 AM EST eCW1 ([facility]) Surgeries/Procedures Procedure Description Date Indications Data Source(s) OFFICE OUTPATIENT VISIT 25 MINUTES 08/02/2021 12:00:00 AM EST MEDENT ([facility]) OFFICE OUTPATIENT VISIT 25 MINUTES 07/19/2021 12:00:00 AM EST MEDENT ([facility]) OFFICE OUTPATIENT VISIT 15 MINUTES 07/06/2021 12:00:00 AM EDT MEDENT ([facility]) OFFICE OUTPATIENT VISIT 15 MINUTES 06/09/2021 12:00:00 AM EDT MEDENT ([facility]) URINE TEST 06/08/2021 12:00:00 AM EDT eCW1 ([facility]) INITIAL PREVENTIVE MEDICINE NEW PT AGE 18-39YRS 2020 12:00:00 AM EDT MEDENT ([facility]) Results ID Date Data Source [id number] 07/17/2021 03:30:00 AM EST MED[facility] ([facility]) Name Value Range Interpretation Code Description Data Briana rce(s) Supporting Document(s) Glucose, Fasting 92 mg/dL 70-100 Normal (applies to non-numeric results) MEDENT ([facility]) Blood Urea Nitrogen 11 mg/dL 7-18 Normal (applies to non-nume rd results) MEDENT ([facility]) Creatinine For GFR 0.60 mg/dL 0.55-1.30 Normal (applies to non -numeric results) MED[facility] ([facility]) Potassium Serum 4.2 meq/L 3.5-5.1 Normal (applies to non-numeric results) MEDENT ([facility]) Sodium Level 141 meq/L 136-145 Normal (applies to non-numeric res ults) MEDENT ([facility]) Glomerular Filtration Rate Laboratory test result Normal (applies to non- numeric results) [facility] ([facility]) <content>Units are mL/min/1.73 m2</content>
<content></content>
<content>Chronic Kidney Disease Staging per NKF:</content>
<content></content>
<content>Stage I & II GFR >=60 Normal to Mildly Decreased</content>
<content>Stage III GFR 30- 59 Moderately Decreased</content>
<content>Stage IV GFR 15-29 Severely Decreased</content>
<content>Stage V GFR <15 Very Little GFR Left</content>
<content>ESRD GFR <15 on OPHTHALMIC SURGICAL ASSISTANT</content>
<content></content> Carbon Dioxide Level 23 meq/L 21-32 Normal (applies to non-num svetlana results) MEDENT ([facility]) Chloride Level 109 meq/L 98-107 Above high normal MED ENT ([facility]) Calcium Level 9.6 mg/dL 8.5-10.1 Normal (applies to non-numeric re sults) [facility] Anion Gap 9 meq/L 8-16 Normal (applies to non-numeric resul ts) [facility]) ID Date Data Source [id number] 07/17/2021 03:30:00 AM EST [facility]) Name Value Range Interpretation Code Description Data Briana rce(s) Supporting Document(s) CK-MB Value Mass 1.7 ng/mL Normal (applies to non-numeric results) [facility] ([facility]) CPK Creatine Phosphokinase 170 U/L 26-192 Giuliana l (applies to non-numeric results) [facility] ([facility]) Troponin I Laboratory test result Normal (applies to non-n umeric results) [facility] ([facility]) <content>Troponin I Reference Interval f or Siemens [place] LOCI:</content>
<content></content>
<content>99th Percentile= 0.00-0.045 ng/ml</content>
<content></content>
<content>Risk Stratification:</content>
<content><= 0.10 ng/ml Decreased Risk for Adverse Clinical</content>
<content>Events.</content>
<content>0.10-1.50 ng/ml Increased Risk for Adverse Clinical</content>
<content>Events. Evaluation of additional</content>
<content>criterion and/or repeat testing in 2-6</content>
<content>hours is suggested to rule out myocardial</content>
<content>damage.</content>
<content>>= 1.50 ng/ml Indicative of Myocardial Injury.</content>
<content></content> MB/CK Relative Index 1.00 Normal (applies to non-num svetlana results) [facility] ([facility]) <content>DIAGNOSIS CRITERIA</content>
<content>MMB ng/ml Relative Index (RI)</content>
<content>NON-AMI < or = 5 N/A</content>
<content>REEDER ZONE > 5 < or = 4</content>
<content>AMI > 5 > 4</content>
<content></content> ID Date Data Source [id number] 07/06/2021 04:20:00 PM EDT [facility] Name Value Range Interpretation Code Description Data Briana rce(s) Supporting Document(s) Respiratory pathogens identified [Type] in Nasopharynx by Probe and target amplification method SARS-CoV-2 (COVID 19) [facility] [place] This lab was ordered by [facility] a nd reported by [facility]. ID Date Data Source [id number] 06/09/2021 12:00:00 AM EDT [facility] Name Value Range Interpretation Code Description Data Briana rce(s) Supporting Document(s) SARS-CoV2 Rapid Antigen Negative [facility] This lab was ordered by [facility] and reported by [facility]. ID Date Data Source [id number] 01/19/2021 12:00:00 AM EDT [facility] Name Value Range Interpretation Code Description Data Briana rce(s) Supporting Document(s) SARS-CoV-2 PCR Nucleic Acid Negative [place] [facility] This lab was ordered by [facility] and reported by [facility]. ID Date Data Source [id number] 10/20/2020 08:14:00 PM EST [facility] ([facility]) Name Value Range Interpretation Code Description Data Briana rce(s) Supporting Document(s) Laboratory test finding (navigational concept) Laboratory test result MEDENT ([facility]) Laboratory test finding (navigational concept) Laboratory test result MED[facility] ([facility]) Laboratory test finding (navigational concept) 6.0 units 5.0-9.0 MEDENT ([facility]) Laboratory test finding (navigational concept) 1.030 1.002-1.035 MED[facility] ([facility]) Laboratory test finding (navigational concept) Laboratory test result MEDENT ([facility]) Laboratory test finding (navigational concept) Laboratory test result MEDENT ([facility]) Laboratory test finding (navigational concept) 0.2 mg/dL 0.0-2.0 MEDENT ([facility]) Laboratory test finding (navigational concept) Laboratory test result MED[facility] ([facility]) Laboratory test finding (navigational concept) Laboratory test result MEDENT ([facility]) Laboratory test finding (navigational concept) Laboratory test result MEDENT ([facility]) Laboratory test finding (navigational concept) Laboratory test result MED[facility] ([facility]) Laboratory test finding (navigational concept) Laboratory test result MEDENT ([facility]) Laboratory test finding (navigational concept) 3 /HPF 0-3 MED[facility] ([facility]) Laboratory test finding (navigational concept) 4 /HPF 0-3 MED[facility] ([facility]) Laboratory test finding (navigational concept) Laboratory test result MEDENT ([facility]) Laboratory test finding (navigational concept) 3 /HPF 0-6 MED[facility] ([facility]) Laboratory test finding (navigational concept) 0 /LPF 0-1 MED[facility] ([facility]) Laboratory test finding (navigational concept) Laboratory test result MEDENT ([facility]) ID Date Data Source [id number] 10/20/2020 07:40:00 PM EST MEDENT ([facility]) Name Value Range Interpretation Code Description Data Briana rce(s) Supporting Document(s) Glucose, Fasting 79 mg/dL 70-100 MEDENT ([facility]) Blood Urea Nitrogen 8 mg/dL 7-18 MEDENT ([facility]) Creatinine For GFR 0.60 mg/dL 0.55-1.30 MEDENT ([facility]) Glomerular Filtration Rate Laboratory test result MEDENT ([facility]) <content>Units are mL/min/1.73 m2</content>
<content></content>
<content>Chronic Kidney Disease Staging per NKF:</content>
<content></content>
<content>Stage I & II GFR >=60 Normal to Mildly Decreased</content>
<content>Stage III GFR 30- 59 Moderately Decreased</content>
<content>Stage IV GFR 15-29 Severely Decreased</content>
<content>Stage V GFR <15 Very Little GFR Left</content>
<content>ESRD GFR <15 on OPHTHALMIC SURGICAL ASSISTANT</content>
<content></content> Sodium Level 138 meq/L 136-145 MEDENT ([facility]) Potassium Serum 4.4 meq/L 3.5-5.1 [facility] Chloride Level 107 meq/L 98-107 MEDENT ([facility]) Carbon Dioxide Level 24 meq/L 21-32 [facility] Anion Gap 7 meq/L 8-16 MED[facility] ([facility]) Calcium Level 9.3 mg/dL 8.5-10.1 MEDENT ([facility]) ID Date Data Source [id number] 10/20/2020 07:40:00 PM EST MEDENT ([facility]) Name Value Range Interpretation Code Description Data Briana rce(s) Supporting Document(s) White Blood Count 15.6 10 4.0-10.0 [facility] Red Blood Count 4.34 10 4.00-5.40 MED[facility] ([facility]) Hematocrit 38.4 % 36.0-47.0 [facility] ([facility]) Hemoglobin 12.0 g/dL 12.0-15.5 [facility] ([facility]) Mean Corpuscular Hemoglobin 27.6 pg 27.0-33.0 MEDENT ([facility]) Mean Corpuscular Volume 88.5 fl 80.0-96.0 M EDENT ([facility], [facility]) Mean Corpuscular HGB Conc 31.3 g/dL 32.0-36.5 MEDENT ([facility], [facility]) Red Cell Distribution Width 14.0 % 11.5-14.5 MEDENT ([facility], [facility]) Platelet Count, Automated 492 10 150-450 MEDENT ([facility], [facility]) Neutrophils % 78.8 % 36.0-66.0 MEDENT ([facility], [facility]) Lymph % 13.9 % 24.0-44.0 MEDENT ([facility], [facility]) Eos % 1.5 % 0.0-3.0 MEDENT ([facility], [facility]) Loving % 5.1 % 2.0-8.0 MEDENT ([facility], [facility]) Immature Granulocyte % 0.4 % 0-3.0 MEDENT ([facility], [facility]) Baso % 0.3 % 0.0-1.0 MEDENT ([facility], [facility]) Nucleated Red Blood Cell % 0.0 % 0-0 MED ENT ([facility], [facility]) Neutrophils # 12.3 10 1.5-8.5 MEDENT ([facility], [facility]) Lymph # 2.2 10 1.5-5.0 MEDENT ([facility], [facility]) Eos # 0.2 10 0.0-0.5 MEDENT ([facility], [facility]) Loving # 0.8 10 0.0-0.8 MEDENT ([facility], [facility]) Baso # 0.1 10 0.0-0.2 MEDENT ([facility], [facility]) ID Date Data Source [id number] 10/20/2020 05:25:00 PM EST MEDENT ([facility], [facility]) Name Value Range Interpretation Code Description Data Briana rce(s) Supporting Document(s) Laboratory test finding (navigational concept) Laboratory test result MEDENT ([facility], [facility]) <content>QUANTITATIVE RESULT QU ALITATIVE INTERPRETATION</content>
<content> </content>
<content><5.0 IU/L NEGATIVE</content>
<content>5.0 - 25.0 IU/L INDETERMINATE</content>
<content>>25.0 IU/L POSITIVE</content>
<content></content> ID Date Data Source [id number] 10/20/2020 04:36:00 PM EST MEDENT ([facility]) Name Value Range Interpretation Code Description Data Briana rce(s) Supporting Document(s) Choriogonadotropin.beta subunit [Moles/volume] in Serum or P lasma [id number] MIU/ML MEDENT ([facility], [facility]) GESTATIONAL AGE APPROXIMATE HCG RANGE (MIU/ML) [...] or monitoring the treatment of cancer patients. [employer] methodology. ID Date Data Source [id number] 08/20/2020 07:36:00 PM EST MEDENT ([facility]) Name Value Range Interpretation Code Description Data Briana rce(s) Supporting Document(s) GC Dna Amplification Laboratory test result Above high nor mal [facility]) Chlamydia Dna Amplification Laboratory test result Normal (applies to non- numeric results) [facility]) A negative test result does not exclude the possibility of infection because test results may be affected by improper specimen collection, technical error, specimen mix-up, concurrent antibiotic therapy, or the number of organisms in the specimen which may be below the sensitivity of the test. Laboratory test finding (navigational concept) Laboratory test r esult Normal (applies to non-numeric results) [facility] ([facility]) A negative test result does not exclude the possibility of infection because test results may be affected by improper specimen collection, technical error, sample mix-up, or because the number of organisms in the sample is below the limit of detection of the test. ID Date Data Source [id number] 08/20/2020 07:36:00 PM EST [facility]) Name Value Range Interpretation Code Description [facility] Supporting Document(s) Wet Prep Laboratory test result Normal (applies to non-n umeric results) [facility]) MANY SHORT RODS PRESENT MODERATE CLUE CELLS PRESENT FEW WBC ID Date Data Source [id number] 08/20/2020 07:20:00 PM [facility]) Name Value Range Interpretation Code Description Data [facility](s) Supporting Document(s) Hepatitis C virus Ab [Units/volume] in Serum by Immunoassay 0.1 INDEX Normal (applies to non-numeric results) [facility]) Negative Not infected with HCV, unless recent infection is suspected or other evidence exists to indicate HCV infection. Choriogonadotropin.beta subunit [Moles/volume] in Serum or Plasm a 2995 MIU/ML Normal (applies to non-numeric results) [facility] ([facility]) GESTATIONAL AGE APPROXIMATE HCG RANGE (MIU/ML) - [...] monitoring the treatment of cancer patients. [employer] methodology. Reagin Ab [Presence] in Serum by RPR Laboratory test result Normal (applies to non-numeric results) [facility] ([facility]) Hepatitis B virus surface Ab [Presence] in Serum by Im munoassay Laboratory test result Normal (applies to non-numeric results) [facility]) Hepatitis B virus surface Ag [Presence] in Serum or Pl asma by Immunoassay Laboratory test result Normal (applies to non-numeric results) [facility] ([facility]) HIV 1+2 Ab [Presence] in Serum Laboratory test result Normal (applies to non- numeric results) [facility] ([facility]) <content>This assay was performed utiliz ing a chemiluminescent</content>
<content>principle technique for the simultaneous qualitative</content>
<content>detection of HIV-1 p24 antigen & antibodies to HIV-1</content>
<content>(including group O) & HIV-2 using the Siemens [employer] XP</content>
<content>system.</content>
<content>The estimated 95% confidence interval for sensitivity of</content>
<content>this antigen/antibody combination assay for HIV-1&2</content>
<content>antibodies is 99.7-100% and HIV p24 antigen is 89.4-99.9%.</content>
<content>The estimated 95% confidence interval for specificity of</content>
<content>this antigen/antibody combination in low risk populations is</content>
<content>99.6-99.8%.</content>
<content></content> ID Date Data Source [id number] 08/20/2020 06:45:00 PM EST MEDENT ([facility]) Name Value Range Interpretation Code Description Data Briana rce(s) Supporting Document(s) Reflex Urine Culture Laboratory test result Norm al (applies to non-numeric results) MEDENT ([facility]) <content>FULL REPORT IN LAB NOTES (eCW a [...] FOR ESBL</content>
<content></content> ID Date Data Source [id number] 08/20/2020 06:45:00 PM EST MEDENT ([facility]) Name Value Range Interpretation Code Description Data Briana rce(s) Supporting Document(s) Appearance, Urine RFX Laboratory test result Above high no rmal MEDENT ([facility]) PH,Urine RFX 5.0 units 5.0-9.0 Normal (applies to non-numeric res ults) MEDENT ([facility]) Color, Urine RFX Laboratory test result Normal ( applies to non-numeric results) MEDENT ([facility]) Glucose, Urine (Ua) Auto RFX Laboratory test result Normal (applies to non- numeric results) MEDENT ([facility]) Protein, Urine Auto RFX Laboratory test result N ormal (applies to non-numeric results) [facility]) Specific [place] Ur Auto RFX 1.025 1.002-1.035 Nor mal (applies to non-numeric results) [facility] ([facility]) Nitrite, Urine Auto RFX Laboratory test result N ormal (applies to non-numeric results) [facility] ([facility]) Bilirubin, Urine Auto RFX Laboratory test result Normal (applies to non- numeric results) [facility] ([facility]) Urobilinogen, Urine Auto RFX 2.0 mg/dL 0.0-2.0 Above high normal [facility] ([facility]) Ketone, Urine Auto RFX Laboratory test result No rmal (applies to non-numeric results) [facility] ([facility]) Leukocyte Esterase Ur Auto RFX Laboratory test result Abov e high normal [facility] ([facility]) Blood, Urine Blood RFX Laboratory test result No rmal (applies to non-numeric results) [facility] ([facility]) WBC, Urine Auto RFX 16 /HPF 0-3 Above high normal [facility] ([facility]) Squam Epithelial Cell Ur Aurfx 13 /HPF 0-6 N ormal (applies to non-numeric results) [facility] ([facility]) Bacteria, Urine Auto RFX Laboratory test result Above high normal [facility] ([facility]) RBC, Urine Auto RFX 2 /HPF 0-3 Normal (applies to non-nume rd results) [facility] ([facility]) Mucus, Urine RFX Laboratory test result Normal ( applies to non-numeric results) [facility] ([facility]) Hyaline Cast, Urine Auto RFX 0 /LPF 0-1 Normal (appl ies to non-numeric results) [facility] ([facility]) ID Date Data Source [id number] 07/07/2020 11:14:00 AM EST [facility] Name Value Range Interpretation Code Description Data Briana rce(s) Supporting Document(s) Surgical pathology study Laboratory test result [facility] ([facility], ) FINAL DIAGNOSIS Esophagus, distal, biopsy: [...] Value Status Description Data Source(s ) Smoking 06/29/2021 12:00:00 AM EDT Current Smoker completed Curre nt Smoker eCW1 ([facility]) Smoking 06/21/2021 12:00:00 AM EDT Current Smoker completed Curre nt Smoker eCW1 ([facility]) Smoking 04/03/2021 12:00:00 AM EDT Current Smoker completed Curre nt Smoker eCW1 ([facility]) Smoking 03/27/2021 12:00:00 AM EDT Current Smoker completed Curre nt Smoker eCW1 ([facility]) Smoking 03/27/2021 12:00:00 AM EDT Current Smoker completed Curre nt Smoker eCW1 ([facility]) Smoking 03/27/2021 12:00:00 AM EDT Current Smoker completed Curre nt Smoker eCW1 ([facility]) Smoking 02/16/2021 12:00:00 AM EDT Current Smoker completed Curre nt Smoker eCW1 ([facility]) Smoking 01/04/2021 12:00:00 AM EDT Current Smoker completed Curre nt Smoker eCW1 ([facility]) Smoking 12/07/2020 12:00:00 AM EDT Current Smoker completed Curre nt Smoker eCW1 ([facility]) Smoking 11/07/2020 12:00:00 AM EST Current Smoker completed Curre nt Smoker eCW1 ([facility]) Vital Signs ID Date Data Source UNK Name Value Range Interpretation Code Description Data Source(s) Systolic blood pressure 114 mm[Hg] 114 mm[Hg] M MATTHEW ([facility]) Diastolic blood pressure 72 mm[Hg] 72 mm[Hg] ADRIANO ([facility]) Body height 62.7 [in_i] 62.7 [in_i] MEDENT ([facility]) 5'2.70" Body weight 187.50 [lb_av] 187.50 [lb_av] MEDEN T ([facility]) Body mass index (BMI) [Ratio] 33.5 kg/m2 33.5 k g/m2 MEDENT ([facility]) Heart rate 71 /min 71 /min MEDENT ([facility]) Respiratory rate 18 /min 18 /min MEDENT ( [facility]) Body temperature 98.4 [degF] 98.4 [degF] MEDENT ([facility]) Oxygen saturation in Arterial blood by Pulse oximetry 100 % 100 % [facility] ([facility]) [place] body weight 110 [lb_av] 110 [lb_av] MEDEN T ([facility]) Systolic blood pressure 110 mm[Hg] 110 mm[Hg] EDENT ([facility]) Diastolic blood pressure 60 mm[Hg] 60 mm[Hg] MEDENT ([facility]) Body height 62.7 [in_i] 62.7 [in_i] MEDENT ([facility]) 5'2.70" Body weight 188.12 [lb_av] 188.12 [lb_av] MEDEN T ([facility]) Body mass index (BMI) [Ratio] 33.6 kg/m2 33.6 k g/m2 MEDENT ([facility]) Heart rate 86 /min 86 /min MEDENT ([facility]) Respiratory rate 12 /min 12 /min MEDENT ( [facility]) Body temperature 97.2 [degF] 97.2 [degF] MEDENT ([facility]) Oxygen saturation in Arterial blood by Pulse oximetry 99 % 99 % [facility] ([facility]) [place] body weight 110 [lb_av] 110 [lb_av] MEDEN T ([facility]) Respiratory rate 18 /min 18 /min MEDENT ( [facility]) Oxygen saturation in Arterial blood by Pulse oximetry 98 % 98 % MEDENT ([facility]) Heart rate 64 /min 64 /min MEDENT ([facility]) Body height 62.7 [in_i] 62.7 [in_i] MEDENT ([facility]) 5'2.70" Body temperature 99.9 [degF] 99.9 [degF] MEDENT ([facility]) [place] body weight 110 [lb_av] 110 [lb_av] MEDEN T ([facility]) Systolic blood pressure 106 mm[Hg] 106 mm[Hg] M EDENT ([facility], [facility]) Diastolic blood pressure 74 mm[Hg] 74 mm[Hg] MEDENT ([facility], [facility]) Heart rate 100 /min 100 /min [facility] ([facility], [facility]) Respiratory rate 16 /min 16 /min [facility] ( [facility], [facility]) Oxygen saturation in Arterial blood by Pulse oximetry 98 % 98 % [facility] ([facility], [facility]) Body temperature 98.6 [degF] 98.6 [degF] MEDENT ([facility], [facility]) Body weight 185.00 [lb_av] 185.00 [lb_av] MEDEN T ([facility], [facility]) Body height 63 [in_i] 63 [in_i] MEDENT ([facility]) 5'3" Body mass index (BMI) [Ratio] 32.8 kg/m2 32.8 k g/m2 MEDENT ([facility], [facility]) Body weight 185.6 [lb_av] 185.6 [lb_av] eCW1 ([facility]) Body weight 84.19 kg 84.19 kg W1 ([facility]) Body height 63 [in_i] 63 [in_i] W1 ([facility]) Body mass index (BMI) [Ratio] 32.87 kg/m2 32.87 kg/m2 [facility] ([facility]) Systolic blood pressure 114 mm[Hg] 114 mm[Hg] e CW1 ([facility]) Diastolic blood pressure 72 mm[Hg] 72 mm[Hg] eCW1 ([facility]) Body weight 185 [lb_av] 185 [lb_av] eCW1 ([facility]) Body weight 83.91 kg 83.91 kg eCW1 ([facility]) Body height 63 [in_i] 63 [in_i] eCW1 ([facility]) Body mass index (BMI) [Ratio] 32.771 kg/m2 32.7 71 kg/m2 eCW1 ([facility]) Systolic blood pressure 108 mm[Hg] 108 mm[Hg] e CW1 ([facility]) Diastolic blood pressure 68 mm[Hg] 68 mm[Hg] eCW1 ([facility]) Body weight 185.4 [lb_av] 185.4 [lb_av] eCW1 ([facility]) Body mass index (BMI) [Ratio] 32.842 kg/m2 32.8 42 kg/m2 eCW1 ([facility]) Body height 63 [in_i] 63 [in_i] eCW1 ([facility]) Systolic blood pressure 110 mm[Hg] 110 mm[Hg] e CW1 ([facility]) Diastolic blood pressure 70 mm[Hg] 70 mm[Hg] eCW1 ([facility]) Systolic blood pressure 110 mm[Hg] 110 mm[Hg] M EDENT ([facility], [facility]) Diastolic blood pressure 76 mm[Hg] 76 mm[Hg] MEDENT ([facility], [facility]) Heart rate 88 /min 88 /min MEDENT ([facility], [facility]) Respiratory rate 14 /min 14 /min MEDENT ( [facility], [facility]) Oxygen saturation in Arterial blood by Pulse oximetry 99 % 99 % MEDENT ([facility], [facility]) Body temperature 97.3 [degF] 97.3 [degF] MEDENT ([facility], [facility]) Body weight 180.00 [lb_av] 180.00 [lb_av] MEDEN T ([facility], [facility]) Body height 63 [in_i] 63 [in_i] MEDENT ([facility], [facility]) 5'3" Body mass index (BMI) [Ratio] 31.9 kg/m2 31.9 k g/m2 MEDENT ([facility], [facility]) Body weight 185.2 [lb_av] 185.2 [lb_av] eCW1 ([facility]) Diastolic blood pressure 66 mm[Hg] 66 mm[Hg] eCW1 ([facility]) Body height 63 [in_i] 63 [in_i] eCW1 ([facility]) Body mass index (BMI) [Ratio] 32.807 kg/m2 32.8 07 kg/m2 W1 ([facility]) Systolic blood pressure 110 mm[Hg] 110 mm[Hg] e CW1 ([facility]) Body weight 185.6 [lb_av] 185.6 [lb_av] eCW1 ([facility]) Body weight 84.19 kg 84.19 kg eCW1 ([facility]) Body height 63 [in_i] 63 [in_i] eCW1 ([facility]) Body mass index (BMI) [Ratio] 32.878 kg/m2 32.8 78 kg/m2 eCW1 ([facility]) Systolic blood pressure 104 mm[Hg] 104 mm[Hg] e CW1 ([facility]) Diastolic blood pressure 70 mm[Hg] 70 mm[Hg] eCW1 ([facility]) Systolic blood pressure 110 mm[Hg] 110 mm[Hg] M EDENT ([facility], ) Diastolic blood pressure 60 mm[Hg] 60 mm[Hg] MEDENT ([facility], ) Body height 63 [in_i] 63 [in_i] MEDENT ([facility], ) 5'3" Body weight 190.25 [lb_av] 190.25 [lb_av] MEDEN T ([facility], ) Body mass index (BMI) [Ratio] 33.7 kg/m2 33.7 k g/m2 MEDENT ([facility], ) [place] body weight 115 [lb_av] 115 [lb_av] HARVEY Ross ([facility], ) Body weight 86.297 kg 86.297 kg ADRIANO ([facility], ) Patient Treatment Plan of Care Planned Activity Planned Date Details Description Data Source (s) Sprintec 28 0.25-35 MG-MCG 06/08/2021 12:00:00 AM EDT eCW1 ([facility]) Sprintec 28 0.25-35 MG-MCG 06/08/2021 12:00:00 AM EDT eCW1 ([facility]) Azithromycin 500 MG Oral Tablet 03/31/2021 12:00:00 AM EDT eCW1 ([facility]) Azithromycin 500 MG Oral Tablet 03/31/2021 12:00:00 AM EDT eCW1 ([facility]) Azithromycin 500 MG Oral Tablet 03/31/2021 12:00:00 AM EDT eCW1 ([facility]) 24 HR Nicotine 0.875 MG/HR Transdermal Patch 01/04/2021 12:00:00 AM EDT eCW1 ([facility])
--- OUTSIDE RECORDS SUMMARY | 2021-08-09 08:13 | CCD ---
Author Author [facility] Organization [facility] Address Unknown Phone Unavailable Support Name Relationship Address Phone REDLBSTR Next Of Kin [address] [place] [address] [place] [address] ARBYSWTN Next Of Kin [address] [place] [address] [place] [address] Un[place] [address] [facility] Next Of Kin [address] [place] [address] [place] [address] SUSHANT CHRISTIE Next Of Kin [address] [place] [address] KIMBERLY ARCHER Next Of Kin [address] [place] [address] UE Next Of Kin Unknown Unavailable ST Next Of Kin Unknown Unavailable JONATHAN CALLE Next Of Kin [address] [place] [address] JONATHAN JACKSON Next Of Kin [address] [place] [address] RONA PETERSON Next Of Kin [address] [place] [address] BHARATI CALLE Next Of Kin [address] [place] [address] MANUEL, (LEGAL GUARDIAN) ARPIT Next Of Kin [address] [place] [address] [employer] Next [facility] [place] [address] FAMILY DOLLAR Next Of Kin [address] [place] [address] GREG JACKSON Next Of Kin [address] [place] [address] ESTHERBASSAM COY Next Of Kin [address] [place] [address] DWIGHT SHIRLEY Next Of Kin [address] [place] [address] Care Team Providers Care Rn Surgical Name Role Phone LETTIERE, A IRVING PA Unavailable Unavailable LETTIERE, A IRVING PA Unavailable Unavailable LETTIERE, A IRVING PA Unavailable Unavailable LETTIERE, A IVRING PA Unavailable Unavailable LETTIERE, A IRVING PA [...] Unavailable O'sophia, A Irving PA Unavailable Unavailable O'osphia, A Irving PA Unavailable Unavailable O'sophia, A [...] is protected by Article 27-F of the [facility] Public Health law. If you continue you may have access to information: Regarding HIV / AIDS; Provided by facilities licensed or operated by the [facility] Office of Mental Health; or Provided by the [facility] Office for People With Developmental Disabilities. If such information is present, then the following [facility] mandated warning applies: This information has [...] Description Data Source(s) Unknown Female Problem MEDENT ([facility]) Encounters Encounter Providers Location Date Indications Data Source(s ) Outpatient Attender: Irving CHEN [facility] 08/02/2021 10:40:00 AM EST MEDENT ([facility]) Unknown [address] [facility] [id number] 08/02/2021 12:00:00 AM EST eCW1 ([facility]) Outpatient Attender: Irving CHEN [facility] 07/19/2021 09:00:00 AM EST MEDENT ([facility]) Outpatient Attender: Rahul CHEN [facility] 07/06/2021 04:00:00 PM EDT MEDENT ([facility]) Outpatient Attender: IRVING huddleston 06/09/2021 05:40:00 PM EDT MEDENT ([facility] (WC ESTOB) WCenter Est OB [address] [place] [address] 06/08/2021 12:00:00 AM EDT eCW1 ([facility]) Unknown [address] [facility] [address] 05/15/2021 12:00:00 AM EDT eCW1 ([facility]) Unknown [address] [facility] [address] 03/31/2021 12:00:00 AM EDT eCW1 ([facility]) Unknown [address] [facility] [address] 03/31/2021 12:00:00 AM EDT eCW1 ([facility]) Unknown [address] [facility] [address] 03/29/2021 12:00:00 AM EDT eCW1 ([facility]) (WC ESTOB) [facility] Est OB [address] [place] [address] 02/16/2021 12:00:00 AM EDT eCW1 ([facility]) Outpatient Attender: Maggy CHEN 11:11:20 AM EDT - 01/19/2021 11:41:10 AM EDT DocuTap ([facility] ) ( ESTOB) [facility] Est OB [address] [place] [address] 01/04/2021 12:00:00 AM EDT eCW1 ([facility]) Outpatient Attender: IRVING Pisano Jonas Cristian flaquito 12/20/2020 01:45:00 PM EDT MEDENT ([facility]) ( ESTOB) [facility]Center Est OB [address] [place] [address] 12/07/2020 12:00:00 AM EDT eCW1 ([facility]) ( ESTOB) [facility] Est OB [address] [place] [address] 11/07/2020 12:00:00 AM EST eCW1 ([facility]) Immunizations Vaccine Date Status Description Data Source(s) COVID-19 VACCINE Moderna 01/24/2021 12:00:00 AM EDT completed [facility] Vaccine Series Complete: NOThis Data was Submitted to [facility] Via [employer] TB Skin test is not vaccine. 12/20/2020 01:40:00 PM EDT completed MEDENT ([facility], [facility]) Medications Medication Brand Name Start Date Product Form Dose Route Admi nistrative Instructions Pharmacy Instructions Status Indications Reaction Description Data Source(s) No Active Medications 06/09/2021 12:00:00 AM EDT completed MEDENT ([facility], [facility]) Sprintec 28 0.25-35 MG-MCG Sprintec 28 0.25-35 MG-MCG 2020 12:00:00 AM EDT 1.0 {tablet} active Sprintec 28 0.25-35 MG-MCG eCW1 ([facility]) Sprintec 28 0.25-35 MG-MCG Sprintec 28 0.25-35 MG-MCG 2020 12:00:00 AM EDT 1.0 {tablet} active Sprintec 28 0.25-35 MG-MCG eCW1 ([facility]) Azithromycin 500 MG Oral Tablet Azithromycin 500 MG 03/31/2021 1 2:00:00 AM EDT 2.0 {tablets} active Azithromyc in 500 MG eCW1 ([facility]) Azithromycin 500 MG Oral Tablet Azithromycin 500 MG 03/31/2021 1 2:00:00 AM EDT 2.0 {tablets} active Azithromyc in 500 MG eCW1 ([facility]) Azithromycin 500 MG Oral Tablet Azithromycin 500 MG 03/31/2021 1 2:00:00 AM EDT 2.0 {tablets} suspended Azithrom ycin 500 MG eCW1 ([facility]) Azithromycin 500 MG Oral Tablet Azithromycin 500 MG 03/31/2021 1 2:00:00 AM EDT 2.0 {tablets} active Azithromyc in 500 MG eCW1 ([facility]) Azithromycin 500 MG Oral Tablet Azithromycin 500 MG 03/31/2021 1 2:00:00 AM EDT 2.0 {tablets} suspended Azithrom ycin 500 MG eCW1 ([facility]) 24 HR Nicotine 0.875 MG/HR Transdermal Patch Nicotine Step 1 21 MG/24HR Nicotine Step 1 21 MG/24HR 01/04/2021 12:00:00 AM EDT 1.0 {patch_to_skin} suspended eCW1 ([facility]) 24 HR Nicotine 0.875 MG/HR Transdermal Patch Nicotine Step 1 21 MG/24HR Nicotine Step 1 21 MG/24HR 01/04/2021 12:00:00 AM EDT 1.0 {patch_to_skin} suspended Nicotine Step 1 21 MG/24HR eCW1 ([facility]) 24 HR Nicotine 0.875 MG/HR Transdermal Patch Nicotine Step 1 21 MG/24HR Nicotine Step 1 21 MG/24HR 01/04/2021 12:00:00 AM EDT 1.0 {patch_to_skin} suspended Nicotine Step 1 21 MG/24HR eCW1 ([facility]) 24 HR Nicotine 0.875 MG/HR Transdermal Patch Nicotine Step 1 21 MG/24HR Nicotine Step 1 21 MG/24HR 01/04/2021 12:00:00 AM EDT 1.0 {patch_to_skin} suspended Nicotine Step 1 21 MG/24HR eCW1 ([facility]) 24 HR Nicotine 0.875 MG/HR Transdermal Patch Nicotine Step 1 21 MG/24HR Nicotine Step 1 21 MG/24HR 01/04/2021 12:00:00 AM EDT 1.0 {patch_to_skin} active Nicotine Step 1 21 MG/24HR eCW1 ([facility]) 24 HR Nicotine 0.875 MG/HR Transdermal Patch Nicotine Step 1 21 MG/24HR Nicotine Step 1 21 MG/24HR 01/04/2021 12:00:00 AM EDT 1.0 {patch_to_skin} suspended Nicotine Step 1 21 MG/24HR eCW1 ([facility]) 24 HR Nicotine 0.875 MG/HR Transdermal Patch Nicotine Step 1 21 MG/24HR Nicotine Step 1 21 MG/24HR 01/04/2021 12:00:00 AM EDT 1.0 {patch_to_skin} suspended Nicotine Step 1 21 MG/24HR eCW1 ([facility]) 24 HR Nicotine 0.875 MG/HR Transdermal Patch Nicotine Step 1 21 MG/24HR Nicotine Step 1 21 MG/24HR 01/04/2021 12:00:00 AM EDT 1.0 {patch_to_skin} suspended Nicotine Step 1 21 MG/24HR eCW1 ([facility]) Sucralfate 1000 MG Oral Tablet [Carafate] Carafate 07/07/2020 1 2:00:00 AM EST ORAL active MEDENT ([facility] ) Insurance Providers Payer name Policy type / Coverage type Policy ID Covered constitution party ID Covered constitution party's relationship to bridges Policy Bridges Plan Information [employer] COMMUNITY [facility]AN [facility] [id number] SP [id number] [facility] COMMUNITY PLAN MCDO [id number] SP [id number] [facility] COMMUNITY PLAN [facility] [id number] SP [id number] [facility] COMMUNITY PLAN [facility] [id number] SP [id number] [place] [employer] [id number] Self [id number] MEDICAID [id number] SP [id number] [facility]/[id number] SP [id number] [facility] MEDICAID [facility] [id number] S [id number] [facility] COMMUNITY PLAN MCDO [id number] SP [id number] [employer] COMMUNITY PLAN [facility] [id number] SP [id number] [facility] [id number] [facility] [id number] SELF PAY UNAVAILABLE SP UNAVAILA BLE UN COMMUNITY PLAN MCDO [id number] SP [id number] [facility] O [id number] S [id number] [facility] Community Plan Commercial [id number] Self [id number] [facility] Part B [id number] Self [id number] [place] [id number] Self [id number] Problems, Conditions, and Diagnoses Code Display Name Description Problem Type Effective Dates Data Source(s) E66.9 Obesity Obesity Problem 11/07/2020 12:00:00 AM ES T eCW1 ([facility]) O99.212 Maternal obesity complicatin g , childbirth and the puerperium, antepartum Obesity complicating in second trimester Problem 11/07/2020 12:00:00 AM EST eCW1 ([facility]) Z34.80 care Supervision of other normal P roblem 09/09/2020 12:00:00 AM EST eCW1 ([facility]) Surgeries/Procedures Procedure Description Date Indications Data Source(s) OFFICE OUTPATIENT VISIT 25 MINUTES 08/02/2021 12:00:00 AM EST MEDENT ([facility]) OFFICE OUTPATIENT VISIT 25 MINUTES 07/19/2021 12:00:00 AM EST MEDENT ([facility]) OFFICE OUTPATIENT VISIT 15 MINUTES 07/06/2021 12:00:00 AM EDT MEDENT ([facility]) OFFICE OUTPATIENT VISIT 15 MINUTES 06/09/2021 12:00:00 AM EDT MEDENT ([facility], [facility]) URINE TEST 06/08/2021 12:00:00 AM EDT eCW1 ([facility]) INITIAL PREVENTIVE MEDICINE NEW PT AGE 18-39YRS 2020 12:00:00 AM EDT MEDENT ([facility], [facility]) Results ID Date Data Source [id number] 07/17/2021 03:30:00 AM EST MEDENT ([facility]) Name Value Range Interpretation Code Description Data Briana rce(s) Supporting Document(s) Glucose, Fasting 92 mg/dL 70-100 Normal (applies to non-numeric results) MEDENT ([facility]) Blood Urea Nitrogen 11 mg/dL 7-18 Normal (applies to non-nume rd results) MEDENT ([facility]) Creatinine For GFR 0.60 mg/dL 0.55-1.30 Normal (applies to non -numeric results) MEDENT ([facility]) Potassium Serum 4.2 meq/L 3.5-5.1 Normal (applies to non-numeric results) MEDENT ([facility]) Sodium Level 141 meq/L 136-145 Normal (applies to non-numeric res ults) MEDENT ([facility]) Glomerular Filtration Rate Laboratory test result Normal (applies to non- numeric results) [facility] ([facility]) <content>Units are mL/min/1.73 m2</content>
<content></content>
<content>Chronic Kidney Disease Staging per NKF:</content>
<content></content>
<content>Stage I & II GFR >=60 Normal to Mildly Decreased</content>
<content>Stage III GFR 30- 59 Moderately Decreased</content>
<content>Stage IV GFR 15-29 Severely Decreased</content>
<content>Stage V GFR <15 Very Little GFR Left</content>
<content>ESRD GFR <15 on FORENSIC SCIENCE TECHNICIAN</content>
<content></content> Carbon Dioxide Level 23 meq/L 21-32 Normal (applies to non-num svetlana results) MEDENT ([facility]) Chloride Level 109 meq/L 98-107 Above high normal MED ENT ([facility]) Calcium Level 9.6 mg/dL 8.5-10.1 Normal (applies to non-numeric re sults) [facility]) Anion Gap 9 meq/L 8-16 Normal (applies to non-numeric resul ts) [facility] ([facility]) ID Date Data Source [id number] 07/17/2021 03:30:00 AM EST [facility]) Name Value Range Interpretation Code Description Data Briana rce(s) Supporting Document(s) CK-MB Value Mass 1.7 ng/mL Normal (applies to non-numeric results) [facility] ([facility]) CPK Creatine Phosphokinase 170 U/L 26-192 Giuliana l (applies to non-numeric results) [facility] ([facility]) Troponin I Laboratory test result Normal (applies to non-n umeric results) [facility] ([facility]) <content>Troponin I Reference Interval f or Siemens [place] LOCI:</content>
<content></content>
<content>99th Percentile= 0.00-0.045 ng/ml</content>
<content></content>
<content>Risk Stratification:</content>
<content><= 0.10 ng/ml Decreased Risk for Adverse Clinical</content>
<content>Events.</content>
<content>0.10-1.50 ng/ml Increased Risk for Adverse Clinical</content>
<content>Events. Evaluation of additional</content>
<content>criterion and/or repeat testing in 2-6</content>
<content>hours is suggested to rule out myocardial</content>
<content>damage.</content>
<content>>= 1.50 ng/ml Indicative of Myocardial Injury.</content>
<content></content> MB/CK Relative Index 1.00 Normal (applies to non-num svetlana results) [facility] ([facility]) <content>DIAGNOSIS CRITERIA</content>
<content>MMB ng/ml Relative Index (RI)</content>
<content>NON-AMI < or = 5 N/A</content>
<content>REEDER ZONE > 5 < or = 4</content>
<content>AMI > 5 > 4</content>
<content></content> ID Date Data Source [id number] 07/06/2021 04:20:00 PM EDT [facility] Name Value Range Interpretation Code Description Data Briana rce(s) Supporting Document(s) Respiratory pathogens identified [Type] in Nasopharynx by Probe and target amplification method SARS-CoV-2 (COVID 19) [facility] [place] This lab was ordered by [facility] a nd reported by [facility]. ID Date Data Source [id number] 06/09/2021 12:00:00 AM EDT [facility] Name Value Range Interpretation Code Description Data Briana rce(s) Supporting Document(s) SARS-CoV2 Rapid Antigen Negative [facility] This lab was ordered by [facility] and reported by [facility]. ID Date Data Source [id number] 01/19/2021 12:00:00 AM EDT [facility] Name Value Range Interpretation Code Description Data Briana rce(s) Supporting Document(s) SARS-CoV-2 PCR Nucleic Acid Negative [place] [facility] This lab was ordered by [facility] and reported by [facility]. ID Date Data Source [id number] 10/20/2020 08:14:00 PM EST MEDENT ([facility]) Name Value Range Interpretation Code Description Data Briana rce(s) Supporting Document(s) Laboratory test finding (navigational concept) Laboratory test result MEDENT ([facility], [facility]) Laboratory test finding (navigational concept) Laboratory test result MEDENT ([facility], [facility]) Laboratory test finding (navigational concept) 6.0 units 5.0-9.0 MEDENT ([facility], [facility]) Laboratory test finding (navigational concept) 1.030 1.002-1.035 MEDENT ([facility], [facility]) Laboratory test finding (navigational concept) Laboratory test result MEDENT ([facility], [facility]) Laboratory test finding (navigational concept) Laboratory test result MEDENT ([facility], [facility]) Laboratory test finding (navigational concept) 0.2 mg/dL 0.0-2.0 MEDENT ([facility], [facility]) Laboratory test finding (navigational concept) Laboratory test result MEDENT ([facility], [facility]) Laboratory test finding (navigational concept) Laboratory test result MEDENT ([facility], [facility]) Laboratory test finding (navigational concept) Laboratory test result MEDENT ([facility], [facility]) Laboratory test finding (navigational concept) Laboratory test result MEDENT ([facility], [facility]) Laboratory test finding (navigational concept) Laboratory test result MEDENT ([facility], [facility]) Laboratory test finding (navigational concept) 3 /HPF 0-3 MEDENT ([facility], [facility]) Laboratory test finding (navigational concept) 4 /HPF 0-3 MEDENT ([facility], [facility]) Laboratory test finding (navigational concept) Laboratory test result MEDENT ([facility], [facility]) Laboratory test finding (navigational concept) 3 /HPF 0-6 MEDENT ([facility], [facility]) Laboratory test finding (navigational concept) 0 /LPF 0-1 MEDENT ([facility], [facility]) Laboratory test finding (navigational concept) Laboratory test result MEDENT ([facility], [facility]) ID Date Data Source [id number] 10/20/2020 07:40:00 PM EST MEDENT ([facility], [facility]) Name Value Range Interpretation Code Description Data Briana rce(s) Supporting Document(s) Glucose, Fasting 79 mg/dL 70-100 MEDENT ([facility], [facility]) Blood Urea Nitrogen 8 mg/dL 7-18 MEDENT ([facility], [facility]) Creatinine For GFR 0.60 mg/dL 0.55-1.30 MEDENT ([facility], [facility]) Glomerular Filtration Rate Laboratory test result MEDENT ([facility], [facility]) <content>Units are mL/min/1.73 m2</content>
<content></content>
<content>Chronic Kidney Disease Staging per NKF:</content>
<content></content>
<content>Stage I & II GFR >=60 Normal to Mildly Decreased</content>
<content>Stage III GFR 30- 59 Moderately Decreased</content>
<content>Stage IV GFR 15-29 Severely Decreased</content>
<content>Stage V GFR <15 Very Little GFR Left</content>
<content>ESRD GFR <15 on FORENSIC SCIENCE TECHNICIAN</content>
<content></content> Sodium Level 138 meq/L 136-145 MEDENT ([facility], [facility]) Potassium Serum 4.4 meq/L 3.5-5.1 MED[facility] ([facility]) Chloride Level 107 meq/L 98-107 MEDENT ([facility], [facility]) Carbon Dioxide Level 24 meq/L 21-32 [facility] ( [facility]) Anion Gap 7 meq/L 8-16 MEDENT ([facility]) Calcium Level 9.3 mg/dL 8.5-10.1 MEDENT ([facility], [facility]) ID Date Data Source [id number] 10/20/2020 07:40:00 PM EST MEDENT ([facility], [facility]) Name Value Range Interpretation Code Description Data Briana rce(s) Supporting Document(s) White Blood Count 15.6 10 4.0-10.0 MEDENT [facility]) Red Blood Count 4.34 10 4.00-5.40 MEDENT ([facility]) Hematocrit 38.4 % 36.0-47.0 MEDENT ([facility]) Hemoglobin 12.0 g/dL 12.0-15.5 MEDENT ([facility]) Mean Corpuscular Hemoglobin 27.6 pg 27.0-33.0 MEDENT ([facility], [facility]) Mean Corpuscular Volume 88.5 fl 80.0-96.0 M EDENT ([facility], [facility]) Mean Corpuscular HGB Conc 31.3 g/dL 32.0-36.5 MEDENT ([facility], [facility]) Red Cell Distribution Width 14.0 % 11.5-14.5 MEDENT ([facility], [facility]) Platelet Count, Automated 492 10 150-450 MEDENT ([facility], [facility]) Neutrophils % 78.8 % 36.0-66.0 MEDENT ([facility], [facility]) Lymph % 13.9 % 24.0-44.0 MEDENT ([facility], [facility]) Eos % 1.5 % 0.0-3.0 MEDENT ([facility], [facility]) Castro % 5.1 % 2.0-8.0 MEDENT ([facility], [facility]) Immature Granulocyte % 0.4 % 0-3.0 MEDENT ([facility], [facility]) Baso % 0.3 % 0.0-1.0 MEDENT ([facility], [facility]) Nucleated Red Blood Cell % 0.0 % 0-0 MED ENT ([facility], [facility]) Neutrophils # 12.3 10 1.5-8.5 MEDENT ([facility], [facility]) Lymph # 2.2 10 1.5-5.0 MEDENT ([facility], [facility]) Eos # 0.2 10 0.0-0.5 MEDENT ([facility], [facility]) Castro # 0.8 10 0.0-0.8 MEDENT ([facility], [facility]) Baso # 0.1 10 0.0-0.2 MEDENT ([facility], [facility]) ID Date Data Source [id number] 10/20/2020 05:25:00 PM EST MEDENT ([facility], [facility]) Name Value Range Interpretation Code Description Data Briana rce(s) Supporting Document(s) Laboratory test finding (navigational concept) Laboratory test result MEDENT ([facility], [facility]) <content>QUANTITATIVE RESULT QU ALITATIVE INTERPRETATION</content>
<content> </content>
<content><5.0 IU/L NEGATIVE</content>
<content>5.0 - 25.0 IU/L INDETERMINATE</content>
<content>>25.0 IU/L POSITIVE</content>
<content></content> ID Date Data Source [id number] 10/20/2020 04:36:00 PM EST MEDENT ([facility]) Name Value Range Interpretation Code Description Data Briana rce(s) Supporting Document(s) Choriogonadotropin.beta subunit [Moles/volume] in Serum or P lasma 36534 MIU/ML MEDENT ([facility], [facility]) GESTATIONAL AGE APPROXIMATE HCG RANGE (MIU/ML) [...] or monitoring the treatment of cancer patients. [employer] methodology. ID Date Data Source [id number] 08/20/2020 07:36:00 PM EST MEDENT ([facility]) Name Value Range Interpretation Code Description Data Briana rce(s) Supporting Document(s) GC Dna Amplification Laboratory test result Above high nor mal [facility]) Chlamydia Dna Amplification Laboratory test result Normal (applies to non- numeric results) [facility]) A negative test result does not exclude the possibility of infection because test results may be affected by improper specimen collection, technical error, specimen mix-up, concurrent antibiotic therapy, or the number of organisms in the specimen which may be below the sensitivity of the test. Laboratory test finding (navigational concept) Laboratory test r esult Normal (applies to non-numeric results) [facility] ([facility]) A negative test result does not exclude the possibility of infection because test results may be affected by improper specimen collection, technical error, sample mix-up, or because the number of organisms in the sample is below the limit of detection of the test. ID Date Data Source [id number] 08/20/2020 07:36:00 PM EST [facility]) Name Value Range Interpretation Code Description Data [facility] Supporting Document(s) Wet Prep Laboratory test result Normal (applies to non-n umeric results) [facility]) MANY SHORT RODS PRESENT MODERATE CLUE CELLS PRESENT FEW WBC ID Date Data Source [id number] 08/20/2020 07:20:00 PM [facility]) Name Value Range Interpretation Code Description Data [facility](s) Supporting Document(s) Hepatitis C virus Ab [Units/volume] in Serum by Immunoassay 0.1 INDEX Normal (applies to non-numeric results) [facility]) Negative Not infected with HCV, unless recent infection is suspected or other evidence exists to indicate HCV infection. Choriogonadotropin.beta subunit [Moles/volume] in Serum or Plasm a 2995 MIU/ML Normal (applies to non-numeric results) [facility] ([facility]) GESTATIONAL AGE APPROXIMATE HCG RANGE (MIU/ML) [...] monitoring the treatment of cancer patients. Siemens LightPath Apps methodology. Reagin Ab [Presence] in Serum by RPR Laboratory test result Normal (applies to non-numeric results) [facility] ([facility]) Hepatitis B virus surface Ab [Presence] in Serum by Im munoassay Laboratory test result Normal (applies to non-numeric results) [facility]) Hepatitis B virus surface Ag [Presence] in Serum or Pl asma by Immunoassay Laboratory test result Normal (applies to non-numeric results) [facility] ([facility]) HIV 1+2 Ab [Presence] in Serum Laboratory test result Normal (applies to non- numeric results) [facility] ([facility]) <content>This assay was performed utiliz ing a chemiluminescent</content>
<content>principle technique for the simultaneous qualitative</content>
<content>detection of HIV-1 p24 antigen & antibodies to HIV-1</content>
<content>(including group O) & HIV-2 using the Siemens Neovascaur XP</content>
<content>system.</content>
<content>The estimated 95% confidence interval for sensitivity of</content>
<content>this antigen/antibody combination assay for HIV-1&2</content>
<content>antibodies is 99.7-100% and HIV p24 antigen is 89.4-99.9%.</content>
<content>The estimated 95% confidence interval for specificity of</content>
<content>this antigen/antibody combination in low risk populations is</content>
<content>99.6-99.8%.</content>
<content></content> ID Date Data Source [id number] 08/20/2020 06:45:00 PM EST [facility] ([facility]) Name Value Range Interpretation Code Description Data Briana rce(s) Supporting Document(s) Reflex Urine Culture Laboratory test result Norm al (applies to non-numeric results) [facility] ([facility]) <content>FULL REPORT IN LAB NOTES (eCW [...] FOR ESBL</content>
<content></content> ID Date Data Source [id number] 08/20/2020 06:45:00 PM EST [facility] ([facility]) Name Value Range Interpretation Code Description Data Briana rce(s) Supporting Document(s) Appearance, Urine RFX Laboratory test result Above high no rmal [facility] ([facility]) PH,Urine RFX 5.0 units 5.0-9.0 Normal (applies to non-numeric res ults) [facility] ([facility]) Color, Urine RFX Laboratory test result Normal ( applies to non-numeric results) [facility] ([facility]) Glucose, Urine (Ua) Auto RFX Laboratory test result Normal (applies to non- numeric results) [facility] ([facility]) Protein, Urine Auto RFX Laboratory test result N ormal (applies to non-numeric results) [facility] ([facility]) Specific [place] Ur Auto RFX 1.025 1.002-1.035 Nor mal (applies to non-numeric results) [facility] ([facility]) Nitrite, Urine Auto RFX Laboratory test result N ormal (applies to non-numeric results) [facility] ([facility]) Bilirubin, Urine Auto RFX Laboratory test result Normal (applies to non- numeric results) [facility] ([facility]) Urobilinogen, Urine Auto RFX 2.0 mg/dL 0.0-2.0 Above high normal [facility] ([facility]) Ketone, Urine Auto RFX Laboratory test result No rmal (applies to non-numeric results) [facility] ([facility]) Leukocyte Esterase Ur Auto RFX Laboratory test result Abov e high normal [facility] ([facility]) Blood, Urine Blood RFX Laboratory test result No rmal (applies to non-numeric results) [facility] ([facility]) WBC, Urine Auto RFX 16 /HPF 0-3 Above high normal [facility] ([facility]) Squam Epithelial Cell Ur Aurfx 13 /HPF 0-6 N ormal (applies to non-numeric results) [facility] ([facility]) Bacteria, Urine Auto RFX Laboratory test result Above high normal [facility] ([facility]) RBC, Urine Auto RFX 2 /HPF 0-3 Normal (applies to non-nume rd results) [facility] ([facility]) Mucus, Urine RFX Laboratory test result Normal ( applies to non-numeric results) [facility] ([facility]) Hyaline Cast, Urine Auto RFX 0 /LPF 0-1 Normal (appl ies to non-numeric results) [facility] ([facility]) ID Date Data Source [id number] 07/07/2020 11:14:00 AM EST [facility] Name Value Range Interpretation Code Description Data Briana rce(s) Supporting Document(s) Surgical pathology study Laboratory test result [facility] ([facility], ) FINAL DIAGNOSIS Esophagus, distal, biopsy: Columnar [...] Current Smoker completed Curre nt Smoker eCW1 ([facility]) Smoking 06/21/2021 12:00:00 AM EDT Current Smoker completed Curre nt Smoker eCW1 ([facility]) Smoking 04/03/2021 12:00:00 AM EDT Current Smoker completed Curre nt Smoker eCW1 ([facility]) Smoking 03/27/2021 12:00:00 AM EDT Current Smoker completed Curre nt Smoker eCW1 ([facility]) Smoking 03/27/2021 12:00:00 AM EDT Current Smoker completed Curre nt Smoker eCW1 ([facility]) Smoking 03/27/2021 12:00:00 AM EDT Current Smoker completed Curre nt Smoker eCW1 ([facility]) Smoking 02/16/2021 12:00:00 AM EDT Current Smoker completed Curre nt Smoker eCW1 ([facility]) Smoking 01/04/2021 12:00:00 AM EDT Current Smoker completed Curre nt Smoker eCW1 ([facility]) Smoking 12/07/2020 12:00:00 AM EDT Current Smoker completed Curre nt Smoker eCW1 ([facility]) Smoking 11/07/2020 12:00:00 AM EST Current Smoker completed Curre nt Smoker eCW1 ([facility]) Vital Signs ID Date Data Source UNK Name Value Range Interpretation Code Description Data Source(s) Systolic blood pressure 114 mm[Hg] 114 mm[Hg] M MATTHEW ([facility]) Diastolic blood pressure 72 mm[Hg] 72 mm[Hg] ADRIANO ([facility]) Body height 62.7 [in_i] 62.7 [in_i] [facility] ([facility]) 5'2.70" Body weight 187.50 [lb_av] 187.50 [lb_av] MEDEN T ([facility]) Body mass index (BMI) [Ratio] 33.5 kg/m2 33.5 k g/m2 [facility] ([facility]) Heart rate 71 /min 71 /min [facility] ([facility]) Respiratory rate 18 /min 18 /min [facility] ( [facility]) Body temperature 98.4 [degF] 98.4 [degF] [facility] ([facility]) Oxygen saturation in Arterial blood by Pulse oximetry 100 % 100 % [facility] ([facility]) [place] body weight 110 [lb_av] 110 [lb_av] MED[facility] T ([facility]) Systolic blood pressure 110 mm[Hg] 110 mm[Hg] M EDENT ([facility]) Body mass index (BMI) [Ratio] 33.6 kg/m2 33.6 k g/m2 [facility] ([facility]) Heart rate 86 /min 86 /min [facility] ([facility]) Respiratory rate 12 /min 12 /min [facility] ( [facility]) Body temperature 97.2 [degF] 97.2 [degF] [facility] ([facility]) Oxygen saturation in Arterial blood by Pulse oximetry 99 % 99 % [facility] ([facility]) [place] body weight 110 [lb_av] 110 [lb_av] MEDEN T ([facility]) Diastolic blood pressure 60 mm[Hg] 60 mm[Hg] [facility] ([facility]) Body height 62.7 [in_i] 62.7 [in_i] [facility] ([facility]) 5'2.70" Body weight 188.12 [lb_av] 188.12 [lb_av] MED[facility] T ([facility]) Heart rate 64 /min 64 /min [facility] ([facility]) Oxygen saturation in Arterial blood by Pulse oximetry 98 % 98 % [facility] ([facility]) Respiratory rate 18 /min 18 /min [facility] ( [facility]) Body height 62.7 [in_i] 62.7 [in_i] [facility] ([facility]) 5'2.70" Body temperature 99.9 [degF] 99.9 [degF] [facility] ([facility]) [place] body weight 110 [lb_av] 110 [lb_av] MED[facility] T ([facility]) Systolic blood pressure 106 mm[Hg] 106 mm[Hg] M EDENT ([facility], [facility]) Diastolic blood pressure 74 mm[Hg] 74 mm[Hg] [facility] ([facility], [facility]) Heart rate 100 /min 100 /min [facility] ([facility], [facility]) Respiratory rate 16 /min 16 /min [facility] ( [facility], [facility]) Oxygen saturation in Arterial blood by Pulse oximetry 98 % 98 % [facility] ([facility], [facility]) Body temperature 98.6 [degF] 98.6 [degF] [facility] ([facility], [facility]) Body weight 185.00 [lb_av] 185.00 [lb_av] MEDEN T ([facility], [facility]) Body height 63 [in_i] 63 [in_i] [facility] ([facility]) 5'3" Body mass index (BMI) [Ratio] 32.8 kg/m2 32.8 k g/m2 [facility] ([facility], [facility]) Body weight 185.6 [lb_av] 185.6 [lb_av] eCW1 ([facility]) Body weight 84.19 kg 84.19 kg W1 ([facility]) Body height 63 [in_i] 63 [in_i] W1 ([facility]) Body mass index (BMI) [Ratio] 32.87 kg/m2 32.87 kg/m2 [facility] ([facility]) Systolic blood pressure 114 mm[Hg] 114 mm[Hg] e CW1 ([facility]) Diastolic blood pressure 72 mm[Hg] 72 mm[Hg] eCW1 ([facility]) Body weight 185 [lb_av] 185 [lb_av] eCW1 ([facility]) Body weight 83.91 kg 83.91 kg eCW1 ([facility]) Body height 63 [in_i] 63 [in_i] eCW1 ([facility]) Body mass index (BMI) [Ratio] 32.771 kg/m2 32.7 71 kg/m2 eCW1 ([facility]) Systolic blood pressure 108 mm[Hg] 108 mm[Hg] e CW1 ([facility]) Diastolic blood pressure 68 mm[Hg] 68 mm[Hg] eCW1 ([facility]) Body weight 185.4 [lb_av] 185.4 [lb_av] eCW1 ([facility]) Body height 63 [in_i] 63 [in_i] eCW1 ([facility]) Body mass index (BMI) [Ratio] 32.842 kg/m2 32.8 42 kg/m2 eCW1 ([facility]) Systolic blood pressure 110 mm[Hg] 110 mm[Hg] e CW1 ([facility]) Diastolic blood pressure 70 mm[Hg] 70 mm[Hg] eCW1 ([facility]) Systolic blood pressure 110 mm[Hg] 110 mm[Hg] M EDENT ([facility], [facility]) Diastolic blood pressure 76 mm[Hg] 76 mm[Hg] [facility] ([facility], [facility]) Heart rate 88 /min 88 /min [facility] ([facility], [facility]) Respiratory rate 14 /min 14 /min [facility] ( [facility], [facility]) Oxygen saturation in Arterial blood by Pulse oximetry 99 % 99 % [facility] ([facility], [facility]) Body temperature 97.3 [degF] 97.3 [degF] [facility] ([facility], [facility]) Body weight 180.00 [lb_av] 180.00 [lb_av] MEDEN T ([facility], [facility]) Body height 63 [in_i] 63 [in_i] [facility] ([facility], [facility]) 5'3" Body mass index (BMI) [Ratio] 31.9 kg/m2 31.9 k g/m2 [facility] ([facility], [facility]) Body weight 185.2 [lb_av] 185.2 [lb_av] eCW1 ([facility]) Body height 63 [in_i] 63 [in_i] eCW1 ([facility]) Diastolic blood pressure 66 mm[Hg] 66 mm[Hg] eCW1 ([facility]) Body mass index (BMI) [Ratio] 32.807 kg/m2 32.8 07 kg/m2 W1 ([facility]) Systolic blood pressure 110 mm[Hg] 110 mm[Hg] e CW1 ([facility]) Body weight 185.6 [lb_av] 185.6 [lb_av] eCW1 ([facility]) Body weight 84.19 kg 84.19 kg eCW1 ([facility]) Body height 63 [in_i] 63 [in_i] eCW1 ([facility]) Body mass index (BMI) [Ratio] 32.878 kg/m2 32.8 78 kg/m2 eCW1 ([facility]) Systolic blood pressure 104 mm[Hg] 104 mm[Hg] e CW1 ([facility]) Diastolic blood pressure 70 mm[Hg] 70 mm[Hg] eCW1 ([facility]) Systolic blood pressure 110 mm[Hg] 110 mm[Hg] M EDENT ([facility], ) Diastolic blood pressure 60 mm[Hg] 60 mm[Hg] [facility] ([facility], ) Body height 63 [in_i] 63 [in_i] [facility] ([facility], ) 5'3" Body weight 190.25 [lb_av] 190.25 [lb_av] MED[facility] T ([facility], ) Body mass index (BMI) [Ratio] 33.7 kg/m2 33.7 k g/m2 [facility] ([facility], ) [place] body weight 115 [lb_av] 115 [lb_av] HARVEY Ross ([facility], ) Body weight 86.297 kg 86.297 kg ADRIANO ([facility], ) Patient Treatment Plan of Care Planned Activity Planned Date Details Description Data Source (s) Sprintec 28 0.25-35 MG-MCG 06/08/2021 12:00:00 AM EDT eCW1 ([facility]) Sprintec 28 0.25-35 MG-MCG 06/08/2021 12:00:00 AM EDT eCW1 ([facility]) Azithromycin 500 MG Oral Tablet 03/31/2021 12:00:00 AM EDT eCW1 ([facility]) Azithromycin 500 MG Oral Tablet 03/31/2021 12:00:00 AM EDT eCW1 ([facility]) Azithromycin 500 MG Oral Tablet 03/31/2021 12:00:00 AM EDT eCW1 ([facility]) 24 HR Nicotine 0.875 MG/HR Transdermal Patch 01/04/2021 12:00:00 AM EDT eCW1 ([facility])
== END 2021-08-09 07:05 | disposition left against medical advice (07) ==
LOC: M ED 05:00
DX: Z53.29 Procedure and treatment not carried out because of patient's decision for other reasons (principal)

== ENCOUNTER 2021-08-13 09:06 | Emergency (ER) | payer OTHER ==
[~2021-08-13] VITALS: Ht 160 cm; Wt 84.1 kg
[~2021-08-13 09:06] MED LIST changes: -OMEP-221; +OMEP40CA5; +PANT40TA29 PO
[2021-08-13 09:54] LABS: BASO % 0.6 % (0.0-1.0); EOS # 0.2 10^3/uL (0.0-0.5); EOS % 2.5 % (0.0-3.0); HEMATOCRIT 34.8 % (36.0-47.0); HEMOGLOBIN 10.7 g/dl (12.0-15.5); LYMPH # 1.5 10^3/uL (1.5-5.0); LYMPH % 21.1 % (24.0-44.0); MEAN CORPUSCULAR HEMOGLOBIN 25.1 pg (27.0-33.0); MEAN CORPUSCULAR HGB CONC 30.7 g/dl (32.0-36.5); MEAN CORPUSCULAR VOLUME 81.7 fl (80.0-96.0); MONO # 0.5 10^3/uL (0.0-0.8); MONO % 6.5 % (2.0-8.0); NEUTROPHILS % 69.2 % (36.0-66.0); PLATELET COUNT, AUTOMATED 490 10^3/uL (150-450); RED BLOOD COUNT 4.26 10^6/uL (4.00-5.40); WHITE BLOOD COUNT 7.2 10^3/uL (4.0-10.0)
[2021-08-13] MEDS ORDERED: ONDANSETRON 4MG/2ML VIAL IV ONE (10:20)
[2021-08-13] MEDS ORDERED: ONDANSETRON 4MG/2ML VIAL As Ordered ONE (10:21)
[2021-08-13] MEDS: MORPHINE 4 MG/ML 1ML VIAL/SYRINGE (J2270) IV PRN ×2 (10:27→11:09)
[2021-08-13 10:45] LABS: ALBUMIN 3.4 GM/DL (3.2-5.2); ALT/SGPT 44 U/L (12-78); BILIRUBIN,DIRECT < 0.1 MG/DL (0.0-0.2); BILIRUBIN,TOTAL 0.2 MG/DL (0.2-1.0); LIPASE 59 U/L (73-393); TOTAL PROTEIN 6.6 GM/DL (6.4-8.2)
[2021-08-13] MEDS ORDERED: METOCLOPRAMIDE INJ 10MG/2ML VIAL (J2765 PER 1) IV ONE (12:05)
[2021-08-13] MEDS ORDERED: ISOVUE-370 76% 100ML VIAL As Ordered ONE (12:35)
[2021-08-13] MEDS ORDERED: PERC5TAB12 PO (14:45)
[2021-08-13 14:54] VITALS: BP 109/53
== END 2021-08-13 14:56 | disposition home or self-care (01) ==
LOC: M ED 09:06
DX: D64.9 Anemia, unspecified (principal); D75.839 Thrombocytosis, unspecified; K21.9 Gastro-esophageal reflux disease without esophagitis; Z87.19 Personal history of other diseases of the digestive system; Z87.442 Personal history of urinary calculi; Z88.0 Allergy status to penicillin; Z87.891 Personal history of nicotine dependence
CPT/HCPCS: 36415; 71046; 71275; 74175; 80047; 80076; 81001; 83690; 84702; 85025; 93005; 96374; 96375; 96376; 99284; J2270; J2405; J2765; Q9967

== ENCOUNTER 2021-08-30 06:37 | Emergency (ER) | payer OTHER ==
[~2021-08-30] VITALS: Ht 160 cm; Wt 84.1 kg
[~2021-08-30 06:37] MED LIST changes: +OMEP-221; -OMEP40CA5; +PERC5TAB12 PO
[2021-08-30] MEDS ORDERED: MORPHINE 4 MG/ML 1ML VIAL/SYRINGE (J2270) IV ONE (07:10)
[2021-08-30] MEDS ORDERED: ONDANSETRON 4MG/2ML VIAL IV ONE (07:10)
[2021-08-30] MEDS ORDERED: NS 1,000 ML IV ONE (07:15)
[2021-08-30] MEDS ORDERED: PANTOPRAZOLE 40MG VIAL (C9113 PER 1) IV ONE (07:20)
[2021-08-30 07:31] LABS: BASO # 0.1 10^3/uL (0.0-0.2); BASO % 0.7 % (0.0-1.0); EOS # 0.2 10^3/uL (0.0-0.5); EOS % 2.9 % (0.0-3.0); HEMOGLOBIN 10.7 g/dl (12.0-15.5); LYMPH # 2.1 10^3/uL (1.5-5.0); MEAN CORPUSCULAR HEMOGLOBIN 24.9 pg (27.0-33.0); MEAN CORPUSCULAR HGB CONC 30.6 g/dl (32.0-36.5); MEAN CORPUSCULAR VOLUME 81.6 fl (80.0-96.0); MONO # 0.6 10^3/uL (0.0-0.8); MONO % 7.7 % (2.0-8.0); NEUTROPHILS # 4.4 10^3/uL (1.5-8.5); NEUTROPHILS % 60.4 % (36.0-66.0); PLATELET COUNT, AUTOMATED 478 10^3/uL (150-450); RED BLOOD COUNT 4.29 10^6/uL (4.00-5.40); WHITE BLOOD COUNT 7.3 10^3/uL (4.0-10.0)
[2021-08-30 07:57] LABS: ALBUMIN 3.6 GM/DL (3.2-5.2); ALT/SGPT 33 U/L (12-78); BILIRUBIN,DIRECT < 0.1 MG/DL (0.0-0.2); BILIRUBIN,TOTAL 0.3 MG/DL (0.2-1.0); BLOOD UREA NITROGEN 12 MG/DL (7-18); CALCIUM LEVEL 9.3 MG/DL (8.5-10.1); CARBON DIOXIDE LEVEL 27 MEQ/L (21-32); CHLORIDE LEVEL 109 MEQ/L (98-107); CREATININE FOR GFR 0.63 MG/DL (0.55-1.30); GLOMERULAR FILTRATION RATE > 60.0 (>60); GLUCOSE, FASTING 92 MG/DL (70-100); LIPASE 57 U/L (73-393); POTASSIUM SERUM 4.6 MEQ/L (3.5-5.1); SODIUM LEVEL 141 MEQ/L (136-145); TOTAL PROTEIN 7.2 GM/DL (6.4-8.2)
--- NOTE | 2021-08-30 08:40 | REP ---
INDICATION: RUQ/HX gallstones. COMPARISON: 12/20/2020. TECHNIQUE: Real-time sonographic evaluation of right upper quadrant performed. FINDINGS: Multiple gallstones are seen in the dilated gallbladder measuring up to 1.3 cm in diameter. Sludge is seen in the gallbladder. Gallbladder wall is at the upper limits of normal at 3 mm. There is tenderness at the site of the gallbladder.. There is no intrahepatic or extrahepatic biliary dilatation, common bile duct measures 6 mm in maximum diameter. The liver is enlarged. There appears to be some degree of fatty infiltration, with no evidence of a focal mass. The length of the liver is 20.1 cm. The pancreas demonstrates homogeneous echotexture with no gross mass. The right kidney demonstrates no hydronephrosis, with a normal size of 11.3 cm in length. There is increased echogenicity of the renal pyramids again seen. This finding may be seen in medullary sponge kidney or significant dehydration.No free fluid is seen. IMPRESSION: Multiple gallstones are seen in the dilated gallbladder measuring up to 1.3 cm in diameter. Sludge is seen in the gallbladder. Gallbladder wall is at the upper limits of normal at 3 mm. There is tenderness at the site of the gallbladder.. There is no evidence of significant biliary dilatation. There is fatty infiltration of the liver with mild hepatomegaly. No free fluid. Echogenic right renal pyramids again noted, may indicate medullary sponge kidney or dehydration. <Electronically signed by Alfred Adam > 08/30/21 [id number]
[2021-08-30] MEDS ORDERED: PANT20TA6 PO ×2 (08:58→09:00)
[2021-08-30] MEDS ORDERED: KETO10TAB PO (08:58)
[2021-08-30] MEDS ORDERED: KETOROLAC 30 MG/ML 1ML VIAL IV ONE (09:00)
[2021-08-30 09:25] VITALS: BP 102/57
--- NOTE | 2021-08-30 11:18 | ED PDOC ---
Post-Departure Follow-Up GB US faxed to sukhjinder smith and dr palumbo for fu Dio Mojica MD Aug 30, 2021 11:18
== END 2021-08-30 09:40 | disposition home or self-care (01) ==
LOC: M ED 06:37
DX: K80.70 Calculus of gallbladder and bile duct without cholecystitis without obstruction (principal); E86.0 Dehydration; K76.0 Fatty (change of) liver, not elsewhere classified; K82.9 Disease of gallbladder, unspecified; Z88.0 Allergy status to penicillin
CPT/HCPCS: 76705; 80048; 80076; 83690; 84702; 85025; 93041; 96361; 96374; 96375; 99284; C9113; J1885; J2270; J2405

== ENCOUNTER 2021-09-03 02:58 | Inpatient (IN) | payer OTHER ==
[~2021-09-03] VITALS: Ht 160 cm; Wt 86.0 kg
[~2021-09-03 02:58] MED LIST changes: +KETO10TAB PO; -OMEP-221; +OMEP40CA5; +PANT20TA6 PO
[2021-09-03 03:38] LABS: BASO # 0.1 10^3/uL (0.0-0.2); BASO % 0.7 % (0.0-1.0); EOS # 0.3 10^3/uL (0.0-0.5); EOS % 3.1 % (0.0-3.0); HEMATOCRIT 32.8 % (36.0-47.0); HEMOGLOBIN 9.9 g/dl (12.0-15.5); LYMPH # 2.2 10^3/uL (1.5-5.0); LYMPH % 24.2 % (24.0-44.0); MEAN CORPUSCULAR HEMOGLOBIN 25.4 pg (27.0-33.0); MEAN CORPUSCULAR HGB CONC 30.2 g/dl (32.0-36.5); MEAN CORPUSCULAR VOLUME 84.3 fl (80.0-96.0); MONO # 0.7 10^3/uL (0.0-0.8); MONO % 7.8 % (2.0-8.0); NEUTROPHILS # 5.9 10^3/uL (1.5-8.5); PLATELET COUNT, AUTOMATED 461 10^3/uL (150-450); RED BLOOD COUNT 3.89 10^6/uL (4.00-5.40); WHITE BLOOD COUNT 9.1 10^3/uL (4.0-10.0)
[2021-09-03 04:12] LABS: ALBUMIN 3.5 GM/DL (3.2-5.2); ALT/SGPT 114 U/L (12-78); BILIRUBIN,DIRECT < 0.1 MG/DL (0.0-0.2); BLOOD UREA NITROGEN 13 MG/DL (7-18); CARBON DIOXIDE LEVEL 27 MEQ/L (21-32); CHLORIDE LEVEL 108 MEQ/L (98-107); GLOMERULAR FILTRATION RATE > 60.0 (>60); GLUCOSE, FASTING 96 MG/DL (70-100); LIPASE 47 U/L (73-393); SODIUM LEVEL 141 MEQ/L (136-145); TOTAL PROTEIN 6.7 GM/DL (6.4-8.2)
[2021-09-03 04:29] LABS: BILIRUBIN,TOTAL < 0.1 MG/DL (0.2-1.0)
[2021-09-03] MEDS ORDERED: ONDANSETRON 4MG/2ML VIAL IV ONE (08:45)
[2021-09-03] MEDS ORDERED: MORPHINE 2 MG/ML 1ML VIAL (J2270) IV ONE (08:45)
[2021-09-03] MEDS ORDERED: ONDANSETRON 4 MG TAB PO PRN (10:15)
[2021-09-03] MEDS ORDERED: KETO10TAB PO (10:21)
[2021-09-03] MEDS ORDERED: HOME MED LIST COMPLETE! XX SCH (10:25)
[2021-09-03 10:27] LABS: HCG, SERUM QUALITATIVE NEGATIVE (NEGATIVE)
[2021-09-03] MEDS ORDERED: LevoFLOXacin IV 750 MG in IV 1 EA IV ONE (11:00)
[2021-09-03] MEDS: PANTOPRAZOLE 40MG VIAL (C9113 PER 1) IV SCH ×2 (11:13→20:49)
[2021-09-03] MEDS: SUCRALFATE 1 GM TAB PO SCH ×3 (11:13→20:49)
[2021-09-03 11:50] VITALS: BP 110/76
[2021-09-03] MEDS: MORPHINE 2 MG/ML 1ML VIAL (J2270) IV PRN ×2 (12:18→19:37)
[2021-09-03] MEDS: LR 1,000 ML IV SCH ×2 (12:19→17:24)
[2021-09-04 01:55] VITALS: BP 102/48
[2021-09-04] MEDS: MORPHINE 2 MG/ML 1ML VIAL (J2270) IV PRN ×3 (02:07→20:08)
[2021-09-04] MEDS: LR 1,000 ML IV SCH ×3 (02:15→17:49)
[2021-09-04 06:00] VITALS: BP 105/50
[2021-09-04 06:27] LABS: HEMATOCRIT 32.7 % (36.0-47.0); HEMOGLOBIN 9.8 g/dl (12.0-15.5); MEAN CORPUSCULAR HEMOGLOBIN 25.3 pg (27.0-33.0); MEAN CORPUSCULAR VOLUME 84.3 fl (80.0-96.0); PLATELET COUNT, AUTOMATED 248 10^3/uL (150-450); RED BLOOD COUNT 3.88 10^6/uL (4.00-5.40); WHITE BLOOD COUNT 8.9 10^3/uL (4.0-10.0)
[2021-09-04 06:46] LABS: ALBUMIN 2.7 GM/DL (3.2-5.2); ALT/SGPT 65 U/L (12-78); BILIRUBIN,TOTAL 0.3 MG/DL (0.2-1.0); BLOOD UREA NITROGEN 7 MG/DL (7-18); CALCIUM LEVEL 8.5 MG/DL (8.5-10.1); CARBON DIOXIDE LEVEL 25 MEQ/L (21-32); CHLORIDE LEVEL 111 MEQ/L (98-107); CREATININE FOR GFR 0.54 MG/DL (0.55-1.30); GLOMERULAR FILTRATION RATE > 60.0 (>60); GLUCOSE, FASTING 87 MG/DL (70-100); LIPASE 30 U/L (73-393); POTASSIUM SERUM 4.2 MEQ/L (3.5-5.1); SODIUM LEVEL 141 MEQ/L (136-145); TOTAL PROTEIN 5.6 GM/DL (6.4-8.2)
[2021-09-04] MEDS: SUCRALFATE 1 GM TAB PO SCH ×4 (08:32→20:08)
[2021-09-04] MEDS: PANTOPRAZOLE 40MG VIAL (C9113 PER 1) IV SCH ×2 (08:32→20:08)
[2021-09-04 14:00] VITALS: BP 114/80
[2021-09-04] MEDS: ONDANSETRON 4MG/2ML VIAL IV PRN (20:12)
[2021-09-04 22:00] VITALS: BP 110/56
[2021-09-05] VITALS (7 sets, daily range): BP systolic 123–132; BP diastolic 69–76
[2021-09-05] MEDS: MORPHINE 2 MG/ML 1ML VIAL (J2270) IV PRN ×2 (01:39→09:45)
[2021-09-05] MEDS: LR 1,000 ML IV SCH ×3 (02:15→17:27)
[2021-09-05 06:49] LABS: HEMATOCRIT 31.3 % (36.0-47.0); HEMOGLOBIN 9.3 g/dl (12.0-15.5); MEAN CORPUSCULAR HEMOGLOBIN 25.1 pg (27.0-33.0); MEAN CORPUSCULAR HGB CONC 29.7 g/dl (32.0-36.5); MEAN CORPUSCULAR VOLUME 84.6 fl (80.0-96.0); PLATELET COUNT, AUTOMATED 400 10^3/uL (150-450)
[2021-09-05 07:27] LABS: ALBUMIN 2.9 GM/DL (3.2-5.2); ALT/SGPT 55 U/L (12-78); BILIRUBIN,TOTAL 0.2 MG/DL (0.2-1.0); BLOOD UREA NITROGEN 5 MG/DL (7-18); CALCIUM LEVEL 8.9 MG/DL (8.5-10.1); CARBON DIOXIDE LEVEL 27 MEQ/L (21-32); CHLORIDE LEVEL 108 MEQ/L (98-107); CREATININE FOR GFR 0.72 MG/DL (0.55-1.30); GLOMERULAR FILTRATION RATE > 60.0 (>60); GLUCOSE, FASTING 82 MG/DL (70-100); LIPASE 46 U/L (73-393); POTASSIUM SERUM 3.8 MEQ/L (3.5-5.1); SODIUM LEVEL 142 MEQ/L (136-145)
[2021-09-05] MEDS: SUCRALFATE 1 GM TAB PO SCH ×4 (07:30→20:10)
[2021-09-05] MEDS: PANTOPRAZOLE 40MG VIAL (C9113 PER 1) IV SCH ×2 (09:11→20:10)
[2021-09-05] MEDS: ONDANSETRON 4MG/2ML VIAL IV PRN ×2 (11:34→20:19)
[2021-09-05] MEDS ORDERED: LIDOCAINE 2% 100MG/5ML SDV (FOR ANES.) As Ordered ONE (13:58)
[2021-09-05] MEDS ORDERED: ROCURONIUM BROMIDE 50 MG/5 ML VIAL As Ordered ONE (13:58)
[2021-09-05] MEDS ORDERED: MIDAZOLAM INJ 2MG/2ML VIAL (J2250 PER 1MG) As Ordered ONE (13:58)
[2021-09-05] MEDS ORDERED: fentaNYL 250 MCG/5 ML INJECTION (J3010) As Ordered ONE (13:58)
[2021-09-05] MEDS ORDERED: propofoL 200 MG/20 ML VIAL As Ordered ONE (13:58)
[2021-09-05] MEDS ORDERED: BUPIVACAINE/EPIN 0.25% 30 ML VIAL As Ordered ONE (14:54)
[2021-09-05] MEDS ORDERED: LevoFLOXacin 500MG/100ML IV BAG (J1956 PER 250MG) As Ordered ONE (15:19)
[2021-09-05] MEDS ORDERED: LevoFLOXacin IV 500 MG in IV 1 EA IV ONE (15:20)
[2021-09-05] MEDS ORDERED: dexameTHASONE 4 MG/ML 1ML VIAL (J1100 PER 1MG) As Ordered ONE (15:32)
[2021-09-05] MEDS ORDERED: ONDANSETRON 4MG/2ML VIAL As Ordered ONE (15:43)
[2021-09-05] MEDS ORDERED: METOCLOPRAMIDE INJ 10MG/2ML VIAL (J2765 PER 1) As Ordered ONE (15:43)
[2021-09-05] MEDS ORDERED: ACETAMINOPHEN 1000MG 100ML IV BTL (OFIRMEV) (J0131 PER 10MG) As Ordered ONE (15:43)
[2021-09-05] MEDS ORDERED: NORCO, ANEXSIA 5/325MG TABLET (HYDROcodone/ACETAMINOPHEN) PO PRN (16:35)
[2021-09-05] MEDS ORDERED: LR 1,000 ML IV SCH (16:45)
[2021-09-05] MEDS ORDERED: ONDANSETRON 4MG/2ML VIAL IV PRN (16:45)
[2021-09-05] MEDS: oxyCODONE 5MG TAB PO PRN ×2 (16:54→17:21)
[2021-09-05] MEDS: fentaNYL 100 MCG/2 ML INJECTION (J3010) IV PRN ×2 (16:55→17:07)
[2021-09-05] MEDS: KETOROLAC 30 MG/ML 1ML VIAL IV SCH (17:25)
[2021-09-05] MEDS: NORCO, ANEXSIA 5/325MG TABLET (HYDROcodone/ACETAMINOPHEN) PO PRN ×2 (18:40→22:44)
[2021-09-06] MEDS: KETOROLAC 30 MG/ML 1ML VIAL IV SCH ×4 (00:05→18:00)
[2021-09-06 02:00] VITALS: BP 123/65
[2021-09-06] MEDS: MORPHINE 2 MG/ML 1ML VIAL (J2270) IV PRN ×3 (02:01→20:11)
[2021-09-06] MEDS: LR 1,000 ML IV SCH ×3 (02:01→18:01)
[2021-09-06] MEDS: NORCO, ANEXSIA 5/325MG TABLET (HYDROcodone/ACETAMINOPHEN) PO PRN (05:50)
[2021-09-06 06:00] VITALS: BP 109/60
[2021-09-06 06:39] LABS: HEMOGLOBIN 9.4 g/dl (12.0-15.5); MEAN CORPUSCULAR HEMOGLOBIN 25.1 pg (27.0-33.0); MEAN CORPUSCULAR HGB CONC 30.3 g/dl (32.0-36.5); MEAN CORPUSCULAR VOLUME 82.7 fl (80.0-96.0); PLATELET COUNT, AUTOMATED 409 10^3/uL (150-450); RED BLOOD COUNT 3.75 10^6/uL (4.00-5.40); WHITE BLOOD COUNT 13.6 10^3/uL (4.0-10.0)
[2021-09-06 07:05] LABS: ALBUMIN 2.8 GM/DL (3.2-5.2); ALT/SGPT 121 U/L (12-78); BILIRUBIN,TOTAL 0.2 MG/DL (0.2-1.0); BLOOD UREA NITROGEN 7 MG/DL (7-18); CARBON DIOXIDE LEVEL 27 MEQ/L (21-32); CHLORIDE LEVEL 105 MEQ/L (98-107); CREATININE FOR GFR 0.65 MG/DL (0.55-1.30); GLOMERULAR FILTRATION RATE > 60.0 (>60); GLUCOSE, FASTING 97 MG/DL (70-100); LIPASE 27 U/L (73-393); POTASSIUM SERUM 3.7 MEQ/L (3.5-5.1); SODIUM LEVEL 139 MEQ/L (136-145); TOTAL PROTEIN 5.6 GM/DL (6.4-8.2)
[2021-09-06] MEDS: PANTOPRAZOLE 40MG VIAL (C9113 PER 1) IV SCH ×2 (08:04→20:10)
[2021-09-06] MEDS: SUCRALFATE 1 GM TAB PO SCH ×4 (08:05→20:09)
[2021-09-06] MEDS ORDERED: LevoFLOXacin IV 500 MG in IV 1 EA IV SCH (08:25)
[2021-09-06] MEDS: LevoFLOXacin IV 750 MG in IV 1 EA IV SCH (08:59)
[2021-09-06 14:00] VITALS: BP 122/71
[2021-09-06] MEDS: PERCOCET 5MG/325MG TAB PO PRN (14:31)
[2021-09-06 20:53] VITALS: BP 117/68
[2021-09-07] VITALS: BP 105/64
[2021-09-07] MEDS: KETOROLAC 30 MG/ML 1ML VIAL IV SCH ×2 (00:47→05:18)
[2021-09-07] MEDS: PERCOCET 5MG/325MG TAB PO PRN ×2 (01:53→07:42)
[2021-09-07 04:00] VITALS: BP 128/77
[2021-09-07 06:59] LABS: HEMOGLOBIN 8.8 g/dl (12.0-15.5); MEAN CORPUSCULAR HEMOGLOBIN 25.1 pg (27.0-33.0); MEAN CORPUSCULAR HGB CONC 30.3 g/dl (32.0-36.5); MEAN CORPUSCULAR VOLUME 82.9 fl (80.0-96.0); PLATELET COUNT, AUTOMATED 353 10^3/uL (150-450); WHITE BLOOD COUNT 7.9 10^3/uL (4.0-10.0)
[2021-09-07 07:38] LABS: ALBUMIN 2.7 GM/DL (3.2-5.2); ALT/SGPT 84 U/L (12-78); BILIRUBIN,TOTAL 0.5 MG/DL (0.2-1.0); BLOOD UREA NITROGEN 10 MG/DL (7-18); CALCIUM LEVEL 8.5 MG/DL (8.5-10.1); CARBON DIOXIDE LEVEL 30 MEQ/L (21-32); CHLORIDE LEVEL 106 MEQ/L (98-107); CREATININE FOR GFR 0.75 MG/DL (0.55-1.30); GLOMERULAR FILTRATION RATE > 60.0 (>60); GLUCOSE, FASTING 84 MG/DL (70-100); LIPASE 32 U/L (73-393); POTASSIUM SERUM 3.9 MEQ/L (3.5-5.1); SODIUM LEVEL 139 MEQ/L (136-145); TOTAL PROTEIN 5.4 GM/DL (6.4-8.2)
[2021-09-07] MEDS: SUCRALFATE 1 GM TAB PO SCH (07:41)
[2021-09-07] MEDS: LevoFLOXacin IV 750 MG in IV 1 EA IV SCH (07:42)
[2021-09-07] MEDS: PANTOPRAZOLE 40MG VIAL (C9113 PER 1) IV SCH (07:43)
[2021-09-07] MEDS ORDERED: PERC5TAB12 PO (08:18)
[2021-09-07] MEDS ORDERED: LEVO500T4 PO (08:18)
== END 2021-09-07 10:35 | disposition home or self-care (01) | DRG 263 ==
LOC: M ED 02:58 → M ED INP 10:13 → M MS5PR 11:52
PROVIDERS: ADMIT Surgery; ATTEND Surgery
PROC: 0FT44ZZ Resection of Gallbladder, Percutaneous Endoscopic Approach (ICD-10-PCS; principal; 2021-09-05 15:45)
DX: K80.62 Calculus of gallbladder and bile duct with acute cholecystitis without obstruction (principal); F32.A Depression, unspecified; K21.9 Gastro-esophageal reflux disease without esophagitis; Z79.899 Other long term (current) drug therapy

== ENCOUNTER → 2022-02-09 | Outpatient (REF) | payer OTHER ==
[~2022-02-09] MED LIST changes: +LEVO500T4 PO
[2022-02-09 17:00] LABS: AMORPHOUS SEDIMENT SMALL (NEGATIVE); APPEARANCE, URINE CLOUDY (CLEAR); BACTERIA, URINE AUTO NEGATIVE (NEGATIVE); BILIRUBIN, URINE AUTO NEGATIVE (NEGATIVE); BLOOD, URINE BLOOD 3+ (NEGATIVE); COLOR, URINE YELLOW (YELLOW); GLUCOSE, URINE (UA) AUTO NEGATIVE (NEGATIVE); KETONE, URINE AUTO NEGATIVE (NEGATIVE); LEUKOCYTE ESTERASE, URINE AUTO 3+ (NEGATIVE); MUCUS, URINE MODERATE (NEGATIVE); NITRITE, URINE AUTO POSITIVE (NEGATIVE); PROTEIN, URINE AUTO 1+ mg/dL (NEGATIVE); RBC, URINE AUTO 7 /HPF (0-3); SPECIFIC GRAVITY URINE AUTO 1.026 (1.002-1.035); SQUAMOUS EPITHELIAL CELL UR AU 2 /HPF (0-6); TRANSITIONAL EPITHELIAL AUTO 3 /HPF; UROBILINOGEN, URINE AUTO 0.2 mg/dL (0.0-2.0); WBC, URINE AUTO TNTC /HPF (0-3)
== END ==
LOC: M LAB REF 16:10
PROVIDERS: ATTEND Physician Assistant Medical
DX: N39.0 Urinary tract infection, site not specified (principal)

== ENCOUNTER 2023-06-29 04:39 | Emergency (ER) | payer OTHER ==
[~2023-06-29] VITALS: Ht 160 cm; Wt 76.5 kg
[~2023-06-29 04:39] MED LIST changes: +LEVO1TAB39 PO; -LEVO500T4 PO
[2023-06-29 04:48] VITALS: BP 139/86; TEMP 98.5; O2SAT 95
== END 2023-06-29 06:09 | disposition left against medical advice (07) ==
LOC: M ED 04:39 → EDBD 04:39 → M ED 06:09
DX: S05.92XA Unspecified injury of left eye and orbit, initial encounter (principal); Y04.2XXA Assault by strike against or bumped into by another person, initial encounter; Y07.030 Male partner, current, perpetrator of maltreatment and neglect; Z53.21 Procedure and treatment not carried out due to patient leaving prior to being seen by health care provider

== ENCOUNTER 2023-06-29 23:04 | Emergency (ER) | payer OTHER ==
[~2023-06-29] VITALS: Ht 160 cm; Wt 76.4 kg
[2023-06-29 23:04] VITALS: BP 113/57; TEMP 98.3; O2SAT 96
== END 2023-06-30 02:55 | disposition home or self-care (01) ==
LOC: M ED 23:04
DX: S05.12XA Contusion of eyeball and orbital tissues, left eye, initial encounter (principal); Y04.0XXA Assault by unarmed brawl or fight, initial encounter; Y92.9 Unspecified place or not applicable; Z88.0 Allergy status to penicillin

== ENCOUNTER 2023-09-28 12:24 | Emergency (ER) | payer OTHER ==
[~2023-09-28] VITALS: Ht 160 cm; Wt 84.1 kg
[2023-09-28] MEDS ORDERED: LAMO200T54 (12:44)
[2023-09-28] MEDS ORDERED: CYCLOBENZAPRINE 5MG TABLET PO ONE (12:50)
[2023-09-28] MEDS ORDERED: MORPHINE 2 MG/ML 1ML VIAL IV ONE (12:50)
[2023-09-28 13:32] LABS: HEMATOCRIT 38.4 % (36.0-47.0); HEMOGLOBIN 12.3 g/dl (12.0-15.5); MEAN CORPUSCULAR HEMOGLOBIN 27.9 pg (27.0-33.0); MEAN CORPUSCULAR VOLUME 87.1 fl (80.0-96.0); PLATELET COUNT, AUTOMATED 373 10^3/uL (150-450); RED BLOOD COUNT 4.41 10^6/uL (4.00-5.40); WHITE BLOOD COUNT 10.7 10^3/uL (4.0-10.0)
[2023-09-28 13:56] LABS: ALKALINE PHOSPHATASE 61 U/L (46-116); ALT/SGPT 24 U/L (7.0-40); AST/SGOT 36 U/L (<34); BILIRUBIN,TOTAL 0.3 MG/DL (0.3-1.2); BLOOD UREA NITROGEN 6 MG/DL (9-23); CALCIUM LEVEL 9.2 MG/DL (8.5-10.1); CARBON DIOXIDE LEVEL 24 MMOL/L (20-31); CHLORIDE LEVEL 110 MMOL/L (98-107); CREATININE FOR GFR 0.59 MG/DL (0.55-1.30); GLOMERULAR FILTRATION RATE > 60.0 (>60); GLUCOSE, FASTING 76 MG/DL (60-100); POTASSIUM SERUM 4.5 MMOL/L (3.5-5.1); SODIUM LEVEL 137 MMOL/L (136-145); TOTAL PROTEIN 7.3 G/DL (5.7-8.2)
[2023-09-28] MEDS ORDERED: ISOVUE-370 76% 100ML VIAL As Ordered ONE (14:01)
[2023-09-28 15:00] VITALS: BP 123/57; TEMP 97.6; O2SAT 99
== END 2023-09-28 15:17 | disposition home or self-care (01) ==
LOC: M ED 12:24 → EDBD 12:24 → M ED 15:17
DX: T76.11XA Adult physical abuse, suspected, initial encounter (principal); Y04.8XXA Assault by other bodily force, initial encounter; Y93.9 Activity, unspecified; Z79.899 Other long term (current) drug therapy; Z88.0 Allergy status to penicillin
CPT/HCPCS: 70450; 70486; 71046; 71110; 74177; 80053; 83735; 85027; 96374; 99284; Q9967

== ENCOUNTER → 2024-12-27 | Outpatient (REF) | payer OTHER ==
[~2024-12-27] MED LIST changes: -CYCL5TAB PO; +CYCL5TAB4 PO; +LAMO200T54
== END ==
LOC: M LAB REF 18:55
PROVIDERS: ATTEND Physician Assistant Medical
DX: N89.8 Other specified noninflammatory disorders of vagina (principal)

== ENCOUNTER → 2024-12-27 | Outpatient (REF) | payer OTHER ==
[2024-12-27 18:51] LABS: APPEARANCE, URINE CLEAR (CLEAR); BACTERIA, URINE AUTO 1+ (NEGATIVE); BILIRUBIN, URINE AUTO NEGATIVE (NEGATIVE); BLOOD, URINE BLOOD 1+ (NEGATIVE); COLOR, URINE YELLOW (YELLOW); GLUCOSE, URINE (UA) AUTO NEGATIVE (NEGATIVE); KETONE, URINE AUTO NEGATIVE (NEGATIVE); LEUKOCYTE ESTERASE, URINE AUTO TRACE (NEGATIVE); MUCUS, URINE SMALL (NEGATIVE); NITRITE, URINE AUTO NEGATIVE (NEGATIVE); PROTEIN, URINE AUTO NEGATIVE (NEGATIVE); RBC, URINE AUTO 1 /HPF (0-3); SPECIFIC GRAVITY URINE AUTO 1.011 (1.002-1.035); SQUAMOUS EPITHELIAL CELL UR AU 1 /HPF (0-6); UROBILINOGEN, URINE AUTO 0.2 mg/dL (0.0-2.0); WBC, URINE AUTO 4 /HPF (0-3)
== END ==
LOC: M LAB REF 18:04
PROVIDERS: ATTEND Physician Assistant Medical
DX: N39.0 Urinary tract infection, site not specified (principal)